=== PATIENT | female | born 1945 | race Caucasian/White ===

== ENCOUNTER 2020-01-09 15:08 | Outpatient (CLI) | payer MEDICARE, OTHER ==
[2020-01-09 15:30] LABS: BASOPHILS # (AUTO) 0.1 10^3/uL (0.0-0.1); BASOPHILS % (AUTO) 0.9 %; EOSINOPHILS # (AUTO) 0.5 10^3/uL (0.0-0.7); EOSINOPHILS % (AUTO) 6.2 %; HGB - HEMOGLOBIN 13.6 g/dL (12.0-16.0); LYMPHOCYTES # (AUTO) 2.8 10^3/uL (1.5-3.5); LYMPHOCYTES % (AUTO) 32.8 %; MEAN CORPUSCULAR HEMOGLOBIN 34.4 pg (27.0-31.0); MEAN CORPUSCULAR HGB CONC 33.8 g/dL (32.0-36.0); MEAN CORPUSCULAR VOLUME 101.8 fL (81.0-99.0); MEAN PLATELET VOLUME 10.8 fL (7.9-10.8); MONOCYTES # (AUTO) 0.7 10^3/uL (0.0-1.0); MONOCYTES % (AUTO) 8.6 %; NEUTROPHILS # (AUTO) 4.3 10^3/uL (1.5-6.6); NEUTROPHILS % (AUTO) 51.1 %; PLT - PLATELET COUNT 226 10^3/uL (130-450); RED BLOOD COUNT 3.95 10^6/uL (4.20-5.40); RED CELL DISTRIBUTION WIDTH 12.5 % (12.0-15.0); WHITE BLOOD COUNT 8.4 x10^3/uL (4.8-10.8)
[2020-01-09 15:45] LABS: ALBUMIN 3.8 g/dL (3.2-5.5); ALBUMIN/GLOBULIN RATIO 1.2 (1.0-2.2); BILIRUBIN,TOTAL 0.6 mg/dL (0.2-1.0); CREATININE 0.8 mg/dL (0.4-1.0); TOTAL PROTEIN 6.9 g/dL (6.7-8.2)
[2020-01-09 15:49] LABS: CHOL/HDL RATIO 2.5 (<4.4); CHOLESTEROL 225 mg/dL; HDL CHOLESTEROL 90 mg/dL; LDL CHOLESTEROL,CALCULATED 106 mg/dL; LDL/HDL RATIO 1.2 (<4.4); VLDL CHOLESTEROL 29 mg/dL
[2020-01-09 16:47] LABS: CREATININE,URINE 78.3 mg/dL; MICROALBUM/CREATININE RATIO,UR 1782.9 ug/mg (<30.0); MICROALBUMIN,URINE 139.6 mg/dL (0-300.0)
== END 2020-01-09 15:09 | disposition home or self-care (01) ==
LOC: LAB 15:08
PROVIDERS: ATTEND Internal Medicine Nephrology
DX: G43.909 Migraine, unspecified, not intractable, without status migrainosus (principal); I12.9 Hypertensive chronic kidney disease with stage 1 through stage 4 chronic kidney disease, or unspecified chronic kidney disease; N18.3 Chronic kidney disease, stage 3 (moderate); R80.1 Persistent proteinuria, unspecified; I70.1 Atherosclerosis of renal artery
CPT/HCPCS: 36415; 80053; 80061; 82043; 82570; 83721; 84443; 85025

== ENCOUNTER 2020-01-09 16:03 | Outpatient (CLI) | payer MEDICARE, OTHER ==
--- NOTE | 2020-01-10 11:01 | XRAY Report ---
Reason: BI LAT KNEE PAIN Procedure Date: 01/09/2020 Accession Number: [id number] / [id number] Procedure: XR - Knee 3 View BILAT CPT Code: Final Report FULL RESULT: EXAMS: 1. Right Knee Radiography 2. Left Knee Radiography EXAM DATE:01/09/2020 04:30 PM. CLINICAL HISTORY:Bilateral knee pain. COMPARISON: None. TECHNIQUE: 4 views each. FINDINGS: Right Knee: Bones: No fracture identified. Generalized bony demineralization. Varus angulation of the lower leg. Joints: Severe narrowing of the medial compartment of the knee, essentially [id number]. No chondrocalcinosis. No suprapatellar joint effusion. No subluxation. Soft Tissues: No subcutaneous radiopaque foreign bodies. Vascular calcifications noted. Left Knee: Bones: Moderate to severe narrowing of the medial compartment of the knee, without fracture. Mild osteophytic spurring of the medial tibial plateau. Joints: No chondrocalcinosis. Trace suprapatellar joint effusion. Soft Tissues: No subcutaneous radiopaque foreign bodies. IMPRESSION: Severe right and moderate to severe left sided degenerative changes at the knees. RADIA
--- NOTE | 2020-01-10 11:25 | XRAY Report ---
Reason: RIGHT HIP PX Procedure Date: 01/09/2020 Accession Number: [id number] / [id number] Procedure: XR - Hips 2V BILAT CPT Code: Final Report FULL RESULT: EXAM: BILATERAL HIP RADIOGRAPHY EXAM DATE: 01/09/2020 04:30 PM. CLINICAL HISTORY: Chronic right hip pain. COMPARISON: None. TECHNIQUE: 2 views each. FINDINGS: Bones: No acute fractures detected. Right Hip: Moderate narrowing at the right hip, with mild osteophytic spurring of the lateral femoral head and the lateral acetabular margin. 3 mm rounded soft tissue calcification versus loose body just lateral to the right femoral neck. Left Hip: Severe left hip joint space narrowing, with partial collapse of the femoral head and subchondral sclerotic changes of the acetabulum and femoral head. No dislocation detected. Other: Previous lower lumbar spinous fixation. The imaged portion sacroiliac joints appear intact. IMPRESSION: Moderate degenerative changes at the right hip, and severe degenerative changes at the left hip. RADIA
== END 2020-01-09 16:04 | disposition home or self-care (01) ==
LOC: DI 16:03
PROVIDERS: ATTEND Anesthesiology
DX: M17.0 Bilateral primary osteoarthritis of knee (principal); M16.0 Bilateral primary osteoarthritis of hip; G43.909 Migraine, unspecified, not intractable, without status migrainosus; I12.9 Hypertensive chronic kidney disease with stage 1 through stage 4 chronic kidney disease, or unspecified chronic kidney disease; N18.3 Chronic kidney disease, stage 3 (moderate); R80.1 Persistent proteinuria, unspecified; I70.1 Atherosclerosis of renal artery
CPT/HCPCS: 36415; 73521; 80053; 80061; 82043; 82570; 83721; 84443; 85025

== ENCOUNTER 2020-04-30 15:20 | Outpatient (CLI) | payer MEDICARE, OTHER ==
[2020-04-30 19:58] LABS: BASOPHILS # (AUTO) 0.1 10^3/uL (0.0-0.1); BASOPHILS % (AUTO) 1.2 %; EOSINOPHILS # (AUTO) 0.6 10^3/uL (0.0-0.7); HGB - HEMOGLOBIN 14.2 g/dL (12.0-16.0); LYMPHOCYTES # (AUTO) 2.6 10^3/uL (1.5-3.5); LYMPHOCYTES % (AUTO) 30.5 %; MEAN CORPUSCULAR HEMOGLOBIN 34.1 pg (27.0-31.0); MEAN CORPUSCULAR HGB CONC 33.1 g/dL (32.0-36.0); MEAN CORPUSCULAR VOLUME 102.9 fL (81.0-99.0); MEAN PLATELET VOLUME 12.3 fL (7.9-10.8); MONOCYTES # (AUTO) 0.8 10^3/uL (0.0-1.0); MONOCYTES % (AUTO) 9.2 %; NEUTROPHILS # (AUTO) 4.4 10^3/uL (1.5-6.6); NEUTROPHILS % (AUTO) 51.9 %; PLT - PLATELET COUNT 236 10^3/uL (130-450); RED BLOOD COUNT 4.17 10^6/uL (4.20-5.40); RED CELL DISTRIBUTION WIDTH 12.7 % (12.0-15.0); WHITE BLOOD COUNT 8.4 x10^3/uL (4.8-10.8)
[2020-04-30 20:00] LABS: CALCIUM 9.4 mg/dL (8.5-10.3); CREATININE 0.8 mg/dL (0.4-1.0)
[2020-04-30 20:05] LABS: CREATININE,URINE 15.3 mg/dL
== END 2020-04-30 15:21 | disposition home or self-care (01) ==
LOC: LAB.S 15:20
PROVIDERS: ATTEND Registered Nurse
DX: Z01.818 Encounter for other preprocedural examination (principal); N18.3 Chronic kidney disease, stage 3 (moderate)
CPT/HCPCS: 36415; 80048; 82043; 82570; 85025

== ENCOUNTER 2020-06-03 07:30 | Inpatient (IN) | payer MEDICARE, OTHER ==
[2020-06-17] MEDS ORDERED: CELECOXIB 100 MG CAPSULE PO ONE (06:48)
[2020-06-17] MEDS ORDERED: CEFAZOLIN SODIUM IN 0.9 % NACL 2 GM/100 ML BAG IV ONE (06:49)
[2020-06-17] MEDS ORDERED: ACETAMINOPHEN 1,000 MG/100 ML 100 ML IV ONE ×2 (06:49→08:40)
[2020-06-17] MEDS ORDERED: LACTATED RINGERS 1,000 ML IV ONE ×2 (07:41→12:13)
[2020-06-17] MEDS ORDERED: DEXAMETHASONE 4 MG/ML VIAL ONE (08:04)
--- NOTE | 2020-06-17 08:16 | ANESTHESIA ---
Pre-Anesthesia VS, & Labs - Diagnosis left hip osteoarthritis - Procedure Left Hip Total Arthroplasty Vital Signs: Temp Pulse Resp BP Pulse Ox 36.8 C 70 18 132/98 H 97 06/17/20 08:01 06/17/20 08:01 06/17/20 08:01 06/17/20 08:01 06/17/20 08:01 Height: 5 ft 1 in Weight (kg): 45.8 kg Body Mass Index: 19.1 BMI Classification: Healthy weight - NPO >8 hours - Is Patient ?: No - Lab Results Lab results reviewed: Yes Home Medications and Allergies Home Medications: Ambulatory Orders Aspirin [Aspirin EC] 81 mg PO DAILY 06/09/20 Butalbital/Acetaminophen [Acetaminophn-Butalbital 325-50] 1 each PO Q4HR PRN 06/09/20 Carbidopa/Levodopa [Carbidopa-Levo ER 25-100 Tab] 1 each PO ONCE PRN 06/09/20 Irbesartan 37.5 mg PO DAILY 06/09/20 Propranolol HCl 20 mg PO BID 06/09/20 Tramadol HCl 50 mg PO Q6HR PRN 06/09/20 Aspirin [Aspirin EC] 81 mg PO DAILY 06/09/20 Butalbital/Acetaminophen [Acetaminophn-Butalbital 325-50] 1 each PO Q4HR PRN 06/09/20 Carbidopa/Levodopa [Carbidopa-Levo ER 25-100 Tab] 1 each PO ONCE PRN 06/09/20 Irbesartan 37.5 mg PO DAILY 06/09/20 Propranolol HCl 20 mg PO BID 06/09/20 Tramadol HCl 50 mg PO Q6HR PRN 06/09/20 Allergies/Adverse Reactions: Allergies Allergy/AdvReac Type Severity Reaction Status Date / Time gabapentin Allergy Respiratory Verified 06/09/20 10:17 Anes History & Medical History - Anesthetic History Anesthesia Complications: reports: No previous complications Family history of Anesthesia Complications: Denies Family history of Malignant Hyperthermia: Denies - Medical History Cardiovascular: reports: Hypertension Pulmonary: reports: Pneumonia Gastrointestinal: reports: Colon polyps Urinary: reports: None Neuro: reports: Other (RLS) Musculoskeletal: reports: Osteoarthritis, Fibromyalgia, Chronic back pain (5 level spinal fusion), Other Endocrine/Autoimmune: reports: Systemic lupus erythematosus Skin: reports: None - Surgical History General: Appendectomy, Colonoscopy Eyes Ears Nose Throat (EENT): Tonsil/Adenoidectomy Urologic: Bladder surgery Gynecologic: Other Orthopedic: Spine surgery Exam General: Alert, Oriented x3, Cooperative, No acute distress Dental: Dentures full Upper Mouth Openin Fingerbreadth Neck Mobility: Normal Mallampati classification: II Respiratory: Lungs clear, Normal breath sounds, No respiratory distress, No accessory muscle use Cardiovascular: Regular rate, Normal S1, Normal S2, No murmurs Plan Anesthesia Type: Spinal, Fascia Iliaca Block Regional Block: Per Surgeon's request for Post Op pain control Consent for Procedure(s) Verified and Reviewed: Yes Code Status: Attempt Resuscitation ASA classification: 3-Severe systemic disease Is this case an emergency?: No
[2020-06-17] MEDS ORDERED: HYDROmorphone 0.5 MG/0.5 ML SYRINGE IVP PRN (08:37)
[2020-06-17] MEDS ORDERED: ePHEDrine 50 MG/ML VIAL IVP PRN (08:37)
[2020-06-17] MEDS ORDERED: NALOXONE 0.4 MG/ML VIAL IVP PRN (08:37)
[2020-06-17] MEDS ORDERED: MORPHINE 2 MG/ML CARPUJECT IVP PRN (08:37)
[2020-06-17] MEDS ORDERED: ONDANSETRON 4 MG/2 ML VIAL IVP PRN ×2 (08:37→12:18)
[2020-06-17] MEDS ORDERED: METOCLOPRAMIDE 10 MG/2 ML VIAL IVP PRN (08:37)
[2020-06-17] MEDS ORDERED: ATROPINE ABBOJECT 1 MG/10 ML SYRINGE IVP PRN (08:37)
[2020-06-17] MEDS ORDERED: fentaNYL 100 MCG/2 ML VIAL IVP PRN (08:37)
[2020-06-17] MEDS ORDERED: TRANEXAMIC ACID 1,000 MG/10 ML VIAL IV ONE (08:40)
[2020-06-17] MEDS ORDERED: PROPOFOL 200 MG/20 ML VIAL IVP ONE (08:40)
[2020-06-17] MEDS ORDERED: ePHEDrine 50 MG/ML VIAL IVP ONE (08:40)
[2020-06-17] MEDS ORDERED: PHENYLEPHRINE 10 MG/ML VIAL IV ONE (08:40)
[2020-06-17] MEDS ORDERED: MIDAZOLAM 2 MG/2 ML VIAL IVP ONE (08:40)
[2020-06-17] MEDS ORDERED: LACTATED RINGERS 1,000 ML IV SCH (09:00)
[2020-06-17] MEDS ORDERED: ASPIRIN EC 81 MG TABLET PO SCH (09:00)
--- NOTE | 2020-06-17 09:29 | CONSULTATION NOTE ---
Referring Provider Name of Referring Provider:: Dr Reyes Consult Date: 06/17/20 Chief Complaint - Chief Complaint Chief Complaint: back pain and hip pain History of Present Illness - Admitted From Admitted From:: in the medical floor - History Obtained From Records Reviewed: [facility] History obtained from: pt Exam Limitations: no - History of Present Illness HPI Comment/Other: This is a 75 years old female with past medical history significant only for s ystolic lupus erythematosus, HTN, fibromyalgia, chronic back pain, Osteoarthritis, Clinical vision loss, who was admitted by Orthopedic surgeon for left total hip arthroplasty. Patient already left medical floor for surgery when I got a message for consult. After the patient had surgery and came to the medical floor, I went to assess patient. pt report she had severe, chronically progressive pain to the left hip. Patient reported she had history of lupus, and her lupus is in remission, she cannot tolerate any medication for her lupus treatment. She has no medication for her lupus now. Patient reported she feel good after surgery, she has no complaints now. 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 HEENT: reports: Tonsil/Adenoidectomy Meds/Allgy - Home Medications Home Medications: Ambulatory Orders Medication Instructions Recorded Confirmed Butalbital/Acetaminophen 1 each PO Q4HR PRN 06/09/20 06/09/20 [Acetaminophn-Butalbital 325-50] Irbesartan 37.5 mg PO DAILY 06/09/20 06/09/20 Propranolol HCl 20 mg PO BID 06/09/20 06/09/20 Carbidopa/Levodopa 2 tab PO BID PRN 06/17/20 06/17/20 [Carbidopa-Levodopa 25-100 Tab] - Allergies Allergies/Adverse Reactions: Allergies Allergy/AdvReac Type Severity Reaction Status Date / Time gabapentin Allergy Respiratory Verified 06/09/20 10:17 Review of Systems - Constitutional Constitutional: denies: Fatigue, Fever, Chills, Weakness - Eyes Eyes: denies: Pain, Dipolpia - Ears, Nose & Throat Ears, Nose & Throat: denies: Ear pain, Hearing aids, Vertigo, Nosebleeds, Nasal congestion, Bleeding gums - Cardiovascular Cariovascular: denies: Irregular heart rate, Palpitations, Chest pain, Edema, Lightheadedness, Syncope, Exertional dyspnea - Respiratory Respiratory: denies: Cough, Sputum production, Wheezing, Hemoptysis, SOB at rest - Gastrointestinal Gastrointestinal: denies: Abdominal pain, Constipation, Diarrhea, Rectal bleeding, Black stools, Bloody stools, Nausea, Vomiting - Genitourinary Genitourinary: denies: Dysuria, Frequency - Musculoskeletal Musculoskeletal: reports: Back pain. denies: Muscle pain, Muscle aches, Limited range of motion, Muscle weakness - Integumentary Integumentary: denies: Rash, Lesions, Dryness, Lumps - Neurological Neurological: denies: General weakness, Focal weakness, Headache, Dizziness, Numbness, Pre-existing deficit, Abnormal gait, Seizures, Incoordination, Slurred speech - Psychiatric Psychiatric: denies: Depression, Suicidal, Delusions, Hallucinations - Endocrine Endocrine: denies: Polyuria - Hematologic/Lymphatic Hematologic/Lymphatic: denies: Anemia, Blood clots Exam - Vital Signs Vital Signs: Vital Signs x48h Temp Pulse Resp BP Pulse Ox 06/17/20 08:01 36.8 C 70 18 132/98 H 97 - Physical Exam General Appearance: positive: No acute distress, Alert. negative: Lethargic Eyes Bilateral: positive: Normal inspection, PERRL, No lid inflammation ENT: positive: ENT inspection nml, No signs of dehydration. negative: Purulent nasal drainage Neck: positive: Nml inspection, Thyroid nml, Trachea midline. negative: Thyromegaly, Tracheal deviation Respiratory: positive: Chest non-tender, No respiratory distress, Breath sounds nml. negative: Wheezes, Rales, Rhonchi Cardiovascular: positive: Regular rate & rhythm, No murmur. negative: Tachycardia, Bradycardia, Systolic murmur, Diastolic murmur Peripheral Pulses: positive: 2+ Abdomen: positive: Non-tender, Nml bowel sounds, No distention. negative: Tenderness, Guarding, Rebound Back: positive: Nml inspection Skin: positive: Color nml, No rash, Warm, Dry. negative: Cyanosis, Diaphoresis, Pallor Extremities: positive: Nml appearance. negative: Calf tenderness Neurologic/Psychiatric: positive: Oriented x3, Sensation nml, Mood/affect nml. negative: Weakness, Sensory loss, Facial droop, Slurred/abnml speech, Depressed mood/affect Conclusion/Plan - Plan Plan: 1, Status post of left total hip arthroplasty, Follow-up with orthopedics surgeon, Aspirin twice daily for DVT prophylaxis per surgeon, PT and OT evaluation and treatment, Pain control. 2, Hypertension, Blood pressure is a stable now, will resume patient home blood pressure medicine after confirmed. 3, Lupus,Stable, it is in the remission now. 4, Osteoarthritis, Patient had a surgery today. We will continue pain control, Continue physical therapy and Occupational Therapy. - Lab Results Lab results reviewed: Yes
--- NOTE | 2020-06-17 12:06 | PHARMACY PROGRESS NOTE ---
- Best Possible Medication History Admit Date and Time: 06/17/20 0733 Processed by: Nursing As the person ultimately responsible for medication therapy, providers are able to order a medication from an existing home medication list in [facility] via the "Reconcile Routine" prior to Confirmation of that medication by technical support coordinator. Such practice is discouraged except when the physician, in their clinical judgment, deems that a medical need exists for a medication without regard to previous use.
[2020-06-17] MEDS ORDERED: SODIUM CHLORIDE FLUSH 0.9% 10 ML SYRINGE IVP PRN (12:18)
--- NOTE | 2020-06-17 12:24 | ANESTHESIA POST OP EVALUATION ---
Anesthesia Post Eval - Post Anesthesia Eval Vitals: Last Vital Signs Temp 36.8 C 06/17/20 08:01 Pulse 70 06/17/20 08:01 Resp 18 06/17/20 08:01 BP 132/98 H 06/17/20 08:01 Pulse Ox 97 06/17/20 08:01 CV Function Including HR & BP: positive: Stable Pain Control: positive: Satisfactory Nausea & Vomiting: positive: Negative Mental Status: positive: Baseline Respiratory Status: Airway Patent Hydration Status: Satisfactory (awaiting urine output, donnelly vs. no donnelly)
[2020-06-17] MEDS ORDERED: BUTALB/ACETAM/CAFF 50/325/40MG TABLET PO PRN (12:26)
--- NOTE | 2020-06-17 12:42 | OPERATIVE REPORT ---
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 Almost every step is now very painful with the pain being in the groin and upper thigh of left hip. She had marked restriction of motion to the left hip and severe degenerative changes to the left hip joint on x-ray with [id number] and large cyst. She had preoperative medical evaluation and joint camp. Findings: There was a deformed femoral head, eburnated bone surface to the femoral head, shallow acetabulum with loss of bone to superior acetabulum. She also had shortness of the left leg preop. Complications: none noted - Other Other Information/Narrative: The patient was brought to the operating room and administered a lumbar spinal anesthetic. She was positioned in a lateral decubitus position with the left hip facing superiorly and was secured in the lateral decubitus position using a pegboard with 3 pegs. The groin and operative field were excluded with a U drape's above and below the hip. The left lower extremity was prepped and dr aped in a sterile manner in the usual fashion. Ioban adhesive drapes were applied. A timeout procedure was performed by the entire operating room team and all were in agreement. A lateral incision was made over the left hip beginning just below the vastus lateralis tubercle and extending it proximally approximately 3 fingerbreadths above the greater trochanter. The fascia kala was split in line with the incision. An initial self-retaining retractor was inserted. The anterior one third of the gluteus medius myotendinous junction was released with electrocautery. The gluteus minimus and capsule were elevated from the neck. The capsule was split in a T-shaped fashion. The leg was adducted and externally rotated to help expose the anterior capsule which was partially excised. The femoral head was dislocated with a bone hook as well as manipulation. Once the head had been dislocated, retractors were placed around the neck. A femoral neck cutting guide was applied and a oscillating saw was used to divide the neck. The femoral head was saved for bone graft; a reamer was used to remove cancellous bone. The acetabulum was exposed with anterior And posterior acetabular retrac. These retractors were inserted directly against bone to prevent any soft tissue impingement. The acetabulum was cleared of soft tissue to carefully expose the rim. A curette was used to remove any soft tissue and to expose the inner table at the fovea. The acetabular cyst was encountered superiorly and slightly anteriorly. This acetabular cyst measured approximately 2 cm x 1 cm. Acetabular reaming was then performed. Initially the acetabulum was medialized with a 46 mm reamer. Additional reaming was then performed with the reamer in the desired degree of abduction and anteversion. Acetabular reaming was carried out to 55 mm in approximately 1 mm increments. A trial reduction was performed but a tight fit could not be achieved. Therefore 3 cancellous screws were placed through the cup to achieve excellent stability with the cup placed in 40 degrees of abduction and 20 degrees of anteversion. The 56 mm R3 A trial acetabular insert was inserted.The left leg was then placed in the anterior hip pocket and a femoral elevator was used to lift the femur. The femoral canal was opened with a box osteotome. A paper cup handle machine operator was used to establish the femoral canal. Broaching was carried out in 1 mm increments to a #7 which was slightly countersunk and calcar reamed. A trial reduction was performed with a neutral acetabular liner and a high offset neck. There is too much leg length tension and for this reason a normal offset was utilized and a - 3 femoral neck length; this seemed to fit well with excellent stability and leg length tension. The permanent components were then inserted. The permanent femoral component was a #7 and was stable to push pull and torsion. The permanent acetabular liner had also been inserted and impacted. The 36 mm, -3 zirconium femoral head was impacted. The hip was reduced and was stable to motion. The wound was soaked in Betadine, dilute, for 3 minutes. The hip abductors were repaired with #1 Vicryl suture. The fascia kaal was closed with #1 Vicryl. The subcutaneous tissue was closed with 2-0 Vicryl. The skin was closed with a 3-0 Monocryl subcuticular suture with Dermabond. Once the Dermabond had dried, a silver impregnated dressing was applied. She did receive 2 g of Ancef intravenously and tolerated procedure wellA physician assistant unit forester was utilized and was medically necessary in positioning, exposure and protection of vital structures, as well as closure of the wound. The total hip system utilized was the [employer]: All noncemented, R 3 acetabulum with 3 screws was inserted with 3 holes. The #7 anthology femoral component was used. 36 mm, -3 femoral head.
[2020-06-17] MEDS: KETOROLAC 15 MG/ML VIAL IVP PRN ×2 (14:00→20:10)
[2020-06-17] MEDS: traMADol 50 MG TABLET PO PRN ×2 (14:01→21:53)
[2020-06-17] MEDS: NS W/20 MEQ KCL 1,000 ML IV SCH ×2 (14:03→23:56)
[2020-06-17] MEDS ORDERED: CARBIDOPA/LEVODOPA 25 MG/100 MG TABLET PO PRN (15:39)
[2020-06-17] MEDS: ACETAMINOPHEN 1,000 MG/100 ML 100 ML IV PRN ×2 (15:47→23:56)
--- NOTE | 2020-06-17 16:17 | ANESTHESIA POST OP EVALUATION ---
Anesthesia Post Eval - Post Anesthesia Eval Vitals: Last Vital Signs Temp 36.7 C 06/17/20 16:03 Pulse 76 06/17/20 16:03 Resp 16 06/17/20 16:03 BP 130/79 06/17/20 16:03 Pulse Ox 96 06/17/20 16:03 CV Function Including HR & BP: positive: Stable Pain Control: positive: Satisfactory Nausea & Vomiting: positive: Negative Mental Status: positive: Baseline Respiratory Status: Airway Patent Hydration Status: Satisfactory Anesthesia Complications: positive: None
[2020-06-17] MEDS: ceFAZolin 2 GM in SODIUM CHLORIDE 0.9% 100ML 100 ML IV SCH ×2 (16:47→23:48)
[2020-06-17] MEDS: SODIUM CHLORIDE FLUSH 0.9% 10 ML SYRINGE IVP SCH (16:52)
[2020-06-17 17:29] LABS: BASOPHILS % (AUTO) 0.3 %; EOSINOPHILS % (AUTO) 0.2 %; HGB - HEMOGLOBIN 12.5 g/dL (12.0-16.0); LYMPHOCYTES # (AUTO) 1.2 10^3/uL (1.5-3.5); LYMPHOCYTES % (AUTO) 12.1 %; MEAN CORPUSCULAR HEMOGLOBIN 34.7 pg (27.0-31.0); MEAN CORPUSCULAR HGB CONC 34.6 g/dL (32.0-36.0); MEAN CORPUSCULAR VOLUME 100.3 fL (81.0-99.0); MEAN PLATELET VOLUME 11.2 fL (7.9-10.8); MONOCYTES # (AUTO) 0.9 10^3/uL (0.0-1.0); MONOCYTES % (AUTO) 9.4 %; NEUTROPHILS # (AUTO) 7.5 10^3/uL (1.5-6.6); NEUTROPHILS % (AUTO) 77.6 %; PLT - PLATELET COUNT 200 10^3/uL (130-450); RED CELL DISTRIBUTION WIDTH 12.7 % (12.0-15.0); WHITE BLOOD COUNT 9.6 x10^3/uL (4.8-10.8)
[2020-06-17 17:38] LABS: ALBUMIN/GLOBULIN RATIO 1.2 (1.0-2.2); ALKALINE PHOSPHATASE 91 IU/L (42-121); ALT ALANINE AMINOTRANSFERASE < 10 IU/L (10-60); AST ASPARTATE AMINOTRANSFERASE 50 IU/L (10-42); BILIRUBIN,TOTAL 0.7 mg/dL (0.2-1.0); BUN - BLOOD UREA NITROGEN 10 mg/dL (6-20); CALCIUM 8.2 mg/dL (8.5-10.3); CARBON DIOXIDE - CO2 24 mmol/L (21-32); CHLORIDE 101 mmol/L (101-111); CREATININE 0.7 mg/dL (0.4-1.0); GLUCOSE 147 mg/dL (70-100); MAGNESIUM 1.8 mg/dL (1.7-2.8); PHOSPHORUS 3.7 mg/dL (2.5-4.6); SODIUM 136 mmol/L (135-145); TOTAL PROTEIN 5.5 g/dL (6.7-8.2)
[2020-06-17] MEDS: CELECOXIB 100 MG CAPSULE PO SCH (21:52)
[2020-06-17] MEDS: ASPIRIN EC 81 MG TABLET PO SCH (21:52)
[2020-06-17] MEDS: PROPRANOLOL 10 MG TABLET PO SCH (21:52)
[2020-06-17] MEDS: ethyl alcohoL 62% SWAB AMPULE NAS SCH (22:54)
[2020-06-17] MEDS: oxyCODONE 5 MG TABLET PO PRN (23:03)
[2020-06-17] MEDS ORDERED: ceFAZolin 1 GM VIAL ONE (23:35)
[2020-06-18] MEDS: SODIUM CHLORIDE FLUSH 0.9% 10 ML SYRINGE IVP SCH ×2 (00:33→08:26)
[2020-06-18] MEDS: KETOROLAC 15 MG/ML VIAL IVP PRN ×2 (01:34→08:25)
[2020-06-18] MEDS: traMADol 50 MG TABLET PO PRN ×3 (03:36→16:00)
[2020-06-18 05:23] LABS: BASOPHILS % (AUTO) 0.4 %; EOSINOPHILS # (AUTO) 0.4 10^3/uL (0.0-0.7); EOSINOPHILS % (AUTO) 5.2 %; HGB - HEMOGLOBIN 11.1 g/dL (12.0-16.0); LYMPHOCYTES # (AUTO) 2.5 10^3/uL (1.5-3.5); LYMPHOCYTES % (AUTO) 30.9 %; MEAN CORPUSCULAR HEMOGLOBIN 34.6 pg (27.0-31.0); MEAN CORPUSCULAR VOLUME 101.6 fL (81.0-99.0); MEAN PLATELET VOLUME 11.7 fL (7.9-10.8); MONOCYTES % (AUTO) 12.1 %; NEUTROPHILS # (AUTO) 4.1 10^3/uL (1.5-6.6); NEUTROPHILS % (AUTO) 51.1 %; PLT - PLATELET COUNT 180 10^3/uL (130-450); RED BLOOD COUNT 3.21 10^6/uL (4.20-5.40); RED CELL DISTRIBUTION WIDTH 12.5 % (12.0-15.0); WHITE BLOOD COUNT 7.9 x10^3/uL (4.8-10.8)
[2020-06-18 05:30] LABS: CALCIUM 8.2 mg/dL (8.5-10.3); CREATININE 0.7 mg/dL (0.4-1.0)
[2020-06-18] MEDS: oxyCODONE 5 MG TABLET PO PRN ×2 (05:46→12:36)
[2020-06-18] MEDS: ACETAMINOPHEN 1,000 MG/100 ML 100 ML IV PRN (06:19)
--- NOTE | 2020-06-18 07:33 | Discharge Plan ---
Discharge Plan Problem Reviewed?: Yes Disposition: Home, Self Care Diet: Regular Activity Restrictions: Wt Bearing as Tolerated Shower Restrictions: No Driving Restrictions: Yes Assistance Devices: Walker, Crutches Weight Bearing: As Tolerated Plan of Treatment: Patient is She also is to weight-bear as tolerated. Patient is to continue home exercise program to include as much walking as tolerated.Patient is to take meds as prescribed: Tramadol 50 mg every 6 hours, Celebrex 100 mg twice a day aspirin 81 mg twice a day and oxycodone 5 mg as needed for breakthrough pain and to follow-up in clinic this Monday No Smoking: If you smoke, Please STOP! Call for help. Follow-up with: Obdulia Laureano ARNP [Primary Care Provider] -
--- NOTE | 2020-06-18 07:33 | PROVIDER PROGRESS NOTE ---
Subjective - General Admit Date: 06/17/20 Procedure Date: 06/17/20 Post Op Days: 1 Procedure Performed: left total hip arthroplasty - Review of Systems Wound/Incisions: positive: Dressing dry and intact General: positive: No symptoms Psychiatric: positive: No symptoms - Other Other Information/Narrative: Pain is under good control. She is alert and cheerful. Denies chest pain, shortness of breath, nausea or vomiting. Objective - Patient Data Vital Signs: Vital Signs x48h Temp Pulse Resp BP Pulse Ox 06/18/20 03:38 36.6 C 69 16 146/66 H 97 06/17/20 23:49 37.2 C 65 16 106/61 97 Weight: Weight 06/16/20 06/17/20 06/18/20 23:59 23:59 23:59 Weight (kg) 45.8 kg Intake & Output: Intake and Output Totals x24h 06/16/20 06/17/20 06/18/20 23:59 23:59 23:59 Intake Total 1538.333 300 Output Total 1150 525 Balance 388.333 -225 - Lab Results Lab Results: 06/18/20 04:55 06/18/20 04:55 Other Lab Results: Lab Results x24hrs 06/18/20 06/18/20 06/17/20 Range/Units 04:55 04:55 17:18 WBC 7.9 (4.8-10.8) x10^3/uL RBC 3.21 L (4.20-5.40) 10^6/uL Hgb 11.1 L (12.0-16.0) g/dL Hct 32.6 L (37.0-47.0) % MCV 101.6 H (81.0-99.0) fL MCH 34.6 H (27.0-31.0) pg MCHC 34.0 (32.0-36.0) g/dL RDW 12.5 (12.0-15.0) % Plt Count 180 (130-450) 10^3/uL MPV 11.7 H (7.9-10.8) fL Neut # (Auto) 4.1 (1.5-6.6) 10^3/uL Lymph # (Auto) 2.5 (1.5-3.5) 10^3/uL Payette # (Auto) 1.0 (0.0-1.0) 10^3/uL Eos # (Auto) 0.4 (0.0-0.7) 10^3/uL Baso # (Auto) 0.0 (0.0-0.1) 10^3/uL Absolute Nucleated RBC 0.00 x10^3/uL Nucleated RBC % 0.0 /100WBC Sodium 139 136 (135-145) mmol/L Potassium 3.9 3.6 (3.5-5.0) mmol/L Chloride 108 101 (101-111) mmol/L Carbon Dioxide 23 24 (21-32) mmol/L Anion Gap 8.0 11.0 (6-13) BUN 11 10 (6-20) mg/dL Creatinine 0.7 0.7 (0.4-1.0) mg/dL Estimated GFR (MDRD) 81 L 81 L (>89) Glucose 113 H 147 H (70-100) mg/dL POC Whole Bld Glucose (70 - 100) mg/dL Calcium 8.2 L 8.2 L (8.5-10.3) mg/dL Phosphorus 3.7 (2.5-4.6) mg/dL Magnesium 1.8 (1.7-2.8) mg/dL Total Bilirubin 0.7 (0.2-1.0) mg/dL AST 50 H (10-42) IU/L ALT < 10 L (10-60) IU/L Alkaline Phosphatase 91 (42-121) IU/L Total Protein 5.5 L (6.7-8.2) g/dL Albumin 3.0 L (3.2-5.5) g/dL Globulin 2.5 (2.1-4.2) g/dL Albumin/Globulin Ratio 1.2 (1.0-2.2) 06/17/20 06/17/20 Range/Units 17:18 08:23 WBC 9.6 (4.8-10.8) x10^3/uL RBC 3.60 L (4.20-5.40) 10^6/uL Hgb 12.5 (12.0-16.0) g/dL Hct 36.1 L (37.0-47.0) % MCV 100.3 H (81.0-99.0) fL MCH 34.7 H (27.0-31.0) pg MCHC 34.6 (32.0-36.0) g/dL RDW 12.7 (12.0-15.0) % Plt Count 200 (130-450) 10^3/uL MPV 11.2 H (7.9-10.8) fL Neut # (Auto) 7.5 H (1.5-6.6) 10^3/uL Lymph # (Auto) 1.2 L (1.5-3.5) 10^3/uL Payette # (Auto) 0.9 (0.0-1.0) 10^3/uL Eos # (Auto) 0.0 (0.0-0.7) 10^3/uL Baso # (Auto) 0.0 (0.0-0.1) 10^3/uL Absolute Nucleated RBC 0.00 x10^3/uL Nucleated RBC % 0.0 /100WBC Sodium (135-145) mmol/L Potassium (3.5-5.0) mmol/L Chloride (101-111) mmol/L Carbon Dioxide (21-32) mmol/L Anion Gap (6-13) BUN (6-20) mg/dL Creatinine (0.4-1.0) mg/dL Estimated GFR (MDRD) (>89) Glucose (70-100) mg/dL POC Whole Bld Glucose 194 H (70 - 100) mg/dL Calcium (8.5-10.3) mg/dL Phosphorus (2.5-4.6) mg/dL Magnesium (1.7-2.8) mg/dL Total Bilirubin (0.2-1.0) mg/dL AST (10-42) IU/L ALT (10-60) IU/L Alkaline Phosphatase (42-121) IU/L Total Protein (6.7-8.2) g/dL Albumin (3.2-5.5) g/dL Globulin (2.1-4.2) g/dL Albumin/Globulin Ratio (1.0-2.2) - Current Medications Current Medications: Current Medications Generic Name Dose Route Start Last Admin Trade Name Freq PRN Reason Stop Dose Admin Alcohol 1 amp 06/17/20 21:00 06/17/20 22:54 Nozin SWETA 1 amp BID MATTHEW Administration Aspirin 81 mg 06/17/20 21:00 06/17/20 21:52 Ecotrin PO 81 mg BID MATTHEW Administration Celecoxib 200 mg 06/17/20 21:00 06/17/20 21:52 Celebrex PO 200 mg BID MATTHEW Administration Acetaminophen 100 mls @ 400 mls/hr 06/17/20 12:18 06/18/20 06:44 Ofirmev IV 06/18/20 12:17 Infused Q6HR PRN Infusion PAIN Potassium Chloride/Sodium Chloride 1,000 mls @ 100 mls/hr 06/17/20 13:00 06/17/20 23:56 Normal Saline 0.9% W/20 Meq Kcl IV 100 mls/hr .Q10H MATTHEW Administration Ketorolac Tromethamine 15 mg 06/17/20 12:29 06/18/20 01:34 Toradol Inj (15mg) IVP 06/22/20 12:28 15 mg Q6HR PRN Administration PAIN Oxycodone HCl 5 mg 06/17/20 12:23 06/18/20 05:46 Roxicodone PO 5 mg Q6H PRN Administration PAIN Propranolol HCl 20 mg 06/17/20 21:00 06/17/20 21:52 Inderal PO 20 mg BID MATTHEW Administration Sodium Chloride 10 ml 06/17/20 17:00 06/18/20 00:33 Normal Saline Flush 0.9% IVP Not Given 0100,0900,1700 [facility] Tramadol HCl 50 mg 06/17/20 12:21 06/18/20 03:36 Ultram PO 50 mg Q6H PRN Administration PAIN - Physical Exam Wound/Incisions: positive: Dressing dry and intact Neurologic/Psychiatric: positive: Oriented x3, Motor nml, Sensation nml Comments/Other: neurovascular intact left leg Impression/Plan - Problem List Problem List: she is doing well following left ISABELLE She can be discharged to home today Discharge plan completed with prescribed pain medications: tylenol, celebrex, tramadol, and oxycodone Use walker, weight bearing as tolerated ASA 81 mg po bid for DVT prophlaxis for 6 weeks Recheck in clinic next Monday
[2020-06-18] MEDS: CELECOXIB 100 MG CAPSULE PO SCH (08:25)
[2020-06-18] MEDS: ASPIRIN EC 81 MG TABLET PO SCH (08:25)
[2020-06-18] MEDS: ethyl alcohoL 62% SWAB AMPULE NAS SCH (08:26)
[2020-06-18] MEDS: PROPRANOLOL 10 MG TABLET PO SCH (08:35)
[2020-06-18] MEDS: NS W/20 MEQ KCL 1,000 ML IV SCH (14:58)
[2020-06-18 16:39] VITALS: BP 144/84
== END 2020-06-18 16:42 | disposition home or self-care (01) | DRG 470 ==
LOC: MS3 06-17 07:33 → MS2 06-17 11:41 → MS3 06-17 12:02
PROVIDERS: ADMIT Orthopaedic Surgery; ATTEND Orthopaedic Surgery
PROC: 0SRB01A Replacement of Left Hip Joint with Metal Synthetic Substitute, Uncemented, Open Approach (ICD-10-PCS; principal; 2020-06-17 08:30)
DX: M16.12 Unilateral primary osteoarthritis, left hip (principal); I12.9 Hypertensive chronic kidney disease with stage 1 through stage 4 chronic kidney disease, or unspecified chronic kidney disease; N18.9 Chronic kidney disease, unspecified; L93.0 Discoid lupus erythematosus; M79.7 Fibromyalgia; G89.29 Other chronic pain; M54.9 Dorsalgia, unspecified; Z98.1 Arthrodesis status; H54.7 Unspecified visual loss; Z79.82 Long term (current) use of aspirin; Z87.01 Personal history of pneumonia (recurrent)
CPT/HCPCS: 36415; 80048; 80053; 83735; 84100; 85025; 97161; 97165; 97530; 97535; A9270; J0131; J0690; J7120

== ENCOUNTER 2020-06-12 14:27 | Outpatient (CLI) | payer MEDICARE, OTHER | END 2020-06-12 14:28 | disposition home or self-care (01) | LOC: LAB 14:27 | PROVIDERS: ATTEND Orthopaedic Surgery | DX: Z01.812 Encounter for preprocedural laboratory examination (principal); Z20.828 Contact with and (suspected) exposure to other viral communicable diseases; M16.12 Unilateral primary osteoarthritis, left hip ==

== ENCOUNTER 2020-07-27 16:07 | Outpatient (CLI) | payer MEDICARE, OTHER ==
--- NOTE | 2020-07-27 16:09 | XRAY Report ---
PROCEDURE: Femur 2V LT INDICATIONS: POST-OP CARE TECHNIQUE: 5 views of the femur were acquired. COMPARISON: None. FINDINGS: Bones: No fractures or dislocations. No suspicious bony lesions. Prior left total hip arthroplasty . No evidence of device loosening or disruption. Soft tissues: No suspicious soft tissue calcifications or masses. IMPRESSION: Left total hip arthroplasty alignment appears normal. Note is made of a moderately severe degree of d egenerative knee joint osteoarthritis at the medial fragment. Reviewed by: Edison Fuchs MD on 07/27/2020 4:08 PM PST Approved by: Edison Fuchs MD on 07/27/2020 4:08 PM PST Station ID: [id number]
--- NOTE | 2020-07-27 16:13 | XRAY Report ---
PROCEDURE: Hip w/Pelvis 1V LT INDICATIONS: POST-OP CARE TECHNIQUE: AP pelvis with lateral view(s) of the left hip. COMPARISON: Pelvis with left hip 01/09/2020. FINDINGS: Bones: No fractures or dislocations. A left total hip arthroplasty is normally aligned. This replace s severe arthritic change at the [place] left hip noted in December of this year. Prior back surgery with f usion crossing the lumbosacral junction remains stable over time. 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 Pelvic ring appears intact. No fadi picious bony lesions. Soft tissues: The visualized bowel gas pattern is normal. No suspicious soft tissue calcifications. IMPRESSION: Normal arthroplasty alignment left hip, mild to moderate right hip joint osteoarthritis, stable postsurgical changes at the lumbosacral spine with reference to preoperative pelvis plain min m imaging. Reviewed by: Edison Fuchs MD on 07/27/2020 4:12 PM PST Approved by: Edison Fuchs MD on 07/27/2020 4:12 PM PST Station ID: [id number]
== END 2020-07-27 23:59 | disposition home or self-care (01) ==
LOC: DI.N 16:07
PROVIDERS: ATTEND Orthopaedic Surgery
DX: Z48.89 Encounter for other specified surgical aftercare (principal); Z96.642 Presence of left artificial hip joint; M16.11 Unilateral primary osteoarthritis, right hip; M17.12 Unilateral primary osteoarthritis, left knee

== ENCOUNTER 2020-08-26 | Outpatient (CLI) | payer MEDICARE, OTHER | END 2020-08-26 15:56 | disposition critical access hospital (66) | CPT/HCPCS: A0425; A0427 ==

== ENCOUNTER 2020-08-26 16:19 | Emergency (ER) | payer MEDICARE, OTHER ==
[2020-08-26] MEDS ORDERED: SODIUM CHLORIDE 0.9% 1,000 ML IV STA (16:26)
--- NOTE | 2020-08-26 16:49 | ED Physician Documentation ---
PD HPI LOWER EXT INJURY - Stated complaint Stated Complaint: L HIP PX - Chief complaint Chief Complaint: Trauma Ext - History obtained from History obtained from: Patient - History of Present Illness PD HPI LOW EXT INJURY LOCATION: Left, Hip Pain level max: 9 Pain level now: 8 Improved by: Rest Worsened by: Moving, Palpating Associated symptoms: No: Weakness, Numbness, Tingling Recently seen: Not recently seen - Additional information Additional information: Patient is a 75-year-old female who states that she had a hip replacement at the end of May. Today she was bending over and felt a pop in her hip. She felt like she could not stand back up on the leg. Called 911 and brought in by ambulance. Worse with movement, better with rest. No fall or trauma Review of Systems Constitutional: denies: Fever, Chills GI: denies: Vomiting, Diarrhea Skin: denies: Rash Musculoskeletal: denies: Neck pain Neurologic: denies: Headache PD PAST MEDICAL HISTORY - Past Medical History Cardiovascular: Hypertension Respiratory: Pneumonia Neuro: Other Endocrine/Autoimmune: Systemic lupus erythematosus GI: Colon polyps : None HEENT: Chronic vision loss Psych: Claustrophobia Musculoskeletal: Osteoarthritis, Fibromyalgia, Chronic back pain, Other Derm: None - Past Surgical History Past Surgical History: Yes General: Appendectomy, Colonoscopy Ortho: Hip replacement, 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 HEENT: Tonsil/Adenoidectomy - Present Medications Home Medications: Ambulatory Orders Medication Instructions Recorded Confirmed Propranolol HCl 0 mg PO BID 06/09/20 06/09/20 Carbidopa/Levodopa 2 tab PO BID PRN 06/17/20 06/17/20 [Carbidopa-Levodopa 25-100 Tab] Celecoxib [CeleBREX] 100 mg PO BID 30 Days #60 capsule 06/18/20 - Allergies Allergies/Adverse Reactions: Allergies Allergy/AdvReac Type Severity Reaction Status Date / Time gabapentin Allergy Respiratory Verified 08/26/20 16:24 - Social History Does the pt smoke?: No Smoking Status: Never smoker Does the pt have substance abuse?: No PD ED PE NORMAL - Vitals Vital signs reviewed: Yes - General General: Alert and oriented X 3, No acute distress - HEENT HEENT: Moist mucous membranes - Neck Neck: Supple, no meningeal sign - Cardiac Cardiac: RRR - Respiratory Respiratory: No respiratory distress, Clear bilaterally - Derm Derm: Warm and dry - Neuro Neuro: Alert and oriented X 3 Results - Vitals Vitals: Vital Signs - 24 hr 08/26/20 08/26/20 16:24 17:00 Temperature 37.1 C Heart Rate 75 58 L Respiratory 18 16 Rate Blood Pressure 195/101 H 170/90 H O2 Saturation 100 100 Oxygen O2 Source Room air - Rads (name of study) L hip Ct Radiology: Prelim report reviewed, EMP read contemporaneously, See rad report L hip xray Radiology: Prelim report reviewed, EMP read contemporaneously, See rad report (Stable postarthroplasty changes in left hip with anatomic left hip alignment. No gross hardware complication. No acute fracture or dislocation. ) PD MEDICAL DECISION MAKING - ED course Complexity details: reviewed results, re-evaluated patient, considered differential, d/w patient ED course: 75-year-old female with left hip pain after a total hip arthroplasty about 2 months ago. Initial concern for dislocation, however the hardware is well aligned. The patient states that she has actually been having pain since the surgery and feels most of the pain in her hip flexor area. She states it is worse with movement and better with rest. Discussed the case with Dr. Reyes, CT scan was ordered. This does show mild lucency around the anterior most acetabular screw. The tip of the superior portion is located within the iliac is muscle. This may be causing her pain in her leg. Dr. Reyes would like to follow her up in clinic and plan for likely revision. Patient does not want a nursing facility or rehab. She would like to go home. The iliac is muscles consistent with her pain. Patient is ambulating well with a walker in the emergency department. Patient counseled regarding signs and symptoms for which I believe and urgent re-evaluation would be necessary. Patient with good understanding of and agreement to plan and is comfortable going home at this time This document was made in part using voice recognition software. While efforts are made to proofread this document, sound alike and grammatical errors may occur. Bones: Post surgical changes are seen from left total hip arthroplasty with associated metallic streak artifact that mildly compromises evaluation of surrounding structures. Mild lucency is seen surrounding the anterior most acetabular screw that may be related to osteoarthrosis. The tip of the superior is located within the iliacus muscle. The posterosuperior is down positioning without signs of loosening. The lateral most screw is located just lateral to the iliac bone. The femoral and acetabular components are normally aligned without signs of hardware or dislocation of the radiolucent portion. No perihardware fracture is identified. There is no signs of loosening of the femoral stem. The pubic bones are intact. The right proximal femur is intact. Postsurgical changes are seen from posterior fusion at the lumbosacral junction extending from L4 through S1. Soft tissues: No large joint effusion or periarticular masses identified. Moderate to severe atherosclerotic calcifications are seen in the aorta and iliac arteries. The included soft tissues of the pelvis demonstrate no acute abnormality. The ligaments and tendons are not well evaluated with CT. There is mild fatty infiltration of the musculature surrounding the hips. IMPRESSION: Left total hip arthroplasty is seen with intact metallic components as described above. There is mild lucency surrounding the anteriormost acetabular screw that may indicate mild osteolysis. However, no additional signs of significant loosening are identified. No significant joint effusion or perihardware fracture is seen. The pelvic bones are intact. Departure - Departure Disposition: 01 Home, Self Care Clinical Impression: Hip pain Condition: Good Instructions: ED Post Op Pain Follow-Up: Yoan Reyes MD [Provider Admit Priv/Credential] - Within 1 week Comments: Follow-up with Dr. Reyes for further care. It appears that one of your screws may need to be repositioned. I spoke with him tonight and he will follow up with you in the office.
--- NOTE | 2020-08-26 17:01 | XRAY Report ---
PROCEDURE: Hip w/Pelvis 2-3V LT INDICATIONS: prosthetic hip pain TECHNIQUE: AP pelvis with lateral view(s) of the left hip(s). COMPARISON: 07/27/2020. FINDINGS: Bones: Again noted is prior left total hip arthroplasty and fusion of lower lumbar spine at L4-S1 le vels. Alignment of left hip is unchanged from previous study. No gross hardware loosening or failure is seen. No periprosthetic fracture or dislocation. Pelvic ring appears intact. No suspicious bony lesions. Soft tissues: The visualized bowel gas pattern is normal. No suspicious soft tissue calcifications. IMPRESSION: Stable postarthroplasty changes in left hip with anatomic left hip alignment. No gross shannon rdware complication. No acute fracture or dislocation. Reviewed by: Jensen Kim MD on 08/26/2020 4:59 PM PST Approved by: Jensen Kim MD on 08/26/2020 4:59 PM PST Station ID: [id number]
[2020-08-26] MEDS ORDERED: diazePAM INJ 5 MG/ML SYRINGE IVP STA (17:35)
--- NOTE | 2020-08-26 18:23 | CT Report ---
PROCEDURE: LOWER EXTREMITY WO - LT INDICATIONS: L hip pain s/p ISABELLE TECHNIQUE: Noncontrast 3 mm axial sections acquired of the left hip, with coronal and sagittal reformats. COMPARISON: Left hip radiographs dated 08/26/2020. FINDINGS: Image quality: Excellent. Bones: Post surgical changes are seen from left total hip arthroplasty with associated metallic stre ak artifact that mildly compromises evaluation of surrounding structures. Mild lucency is seen surrou nding the anterior most acetabular screw that may be related to osteoarthrosis. The tip of the superi or is located within the iliacus muscle. The posterosuperior is down positioning without signs of loo sening. The lateral most screw is located just lateral to the iliac bone. The femoral and acetabular components are normally aligned without signs of hardware or dislocation of the radiolucent portion. No perihardware fracture is identified. There is no signs of loosening of the femoral stem. The pubic bones are intact. The right proximal femur is intact. Postsurgical changes are seen from po sterior fusion at the lumbosacral junction extending from L4 through S1. Soft tissues: No large joint effusion or periarticular masses identified. Moderate to severe atheros clerotic calcifications are seen in the aorta and iliac arteries. The included soft tissues of the pe lvis demonstrate no acute abnormality. The ligaments and tendons are not well evaluated with CT. The re is mild fatty infiltration of the musculature surrounding the hips. IMPRESSION: Left total hip arthroplasty is seen with intact metallic components as described above. There is mild lucency surrounding the anteriormost acetabular screw that may indicate mild osteolysis. However, no additional signs of significant loosening are identified. No significant joint effusion or perihardw are fracture is seen. The pelvic bones are intact. Reviewed by: Kristopher Naqvi MD on 08/26/2020 6:21 PM PST Approved by: Kristopher Naqvi MD on 08/26/2020 6:21 PM PST Station ID: [id number]
[2020-08-26 19:37] VITALS: BP 165/88
== END 2020-08-26 19:35 | disposition home or self-care (01) ==
LOC: EDUNIT# → ED 16:19
DX: M25.552 Pain in left hip (principal); Z96.642 Presence of left artificial hip joint; I10 Essential (primary) hypertension; M32.9 Systemic lupus erythematosus, unspecified
CPT/HCPCS: 96374; 99284

== ENCOUNTER 2020-08-31 16:09 | Outpatient (CLI) | payer MEDICARE, OTHER ==
[2020-08-31 21:22] LABS: CREATININE,URINE 71.5 mg/dL; PROTEIN/CREATININE RATIO,URINE 1.5 (<=0.2)
[2020-09-03 11:46] LABS: COMPLEMENT COMPONENT C3C 158 mg/dL (83-193); COMPLEMENT COMPONENT C4C 29 mg/dL (15-57)
== END 2020-08-31 16:10 | disposition home or self-care (01) ==
LOC: LAB.S 16:09
PROVIDERS: ATTEND Internal Medicine Nephrology
DX: M32.10 Systemic lupus erythematosus, organ or system involvement unspecified (principal); D89.89 Other specified disorders involving the immune mechanism, not elsewhere classified; R80.9 Proteinuria, unspecified
CPT/HCPCS: 36415; 81599; 82570; 84156; 86160; 86225

== ENCOUNTER 2020-11-16 08:00 | Outpatient (CLI) | payer MEDICARE, OTHER ==
--- NOTE | 2020-11-16 18:17 | XRAY Report ---
PROCEDURE: Chest 2 View X-Ray INDICATIONS: CHEST PAIN TECHNIQUE: 2 views of the chest. COMPARISON: None. FINDINGS: Surgical changes and devices: Lumbar spinal fusion hardware is partially included. Lungs and pleura: No pleural effusions or pneumothorax. Lungs are hyperexpanded and clear. Mediastinum: Mediastinal contours are normal. Heart size is normal. Atherosclerotic calcifications are seen in the aorta. Bones and chest wall: No suspicious bony abnormalities. Soft tissues appear unremarkable. Degenera tive changes are seen in the spine. IMPRESSION: Mildly hyperexpanded lungs can be seen in the setting of COPD. No acute cardiopulmonary abnormality is seen. Reviewed by: Kristopher Naqvi MD on 11/16/2020 5:16 PM RACHELLE Approved by: Kristopher Naqvi MD on 11/16/2020 5:16 PM RACHELLE Station ID: [id number]
[2020-11-16 20:02] LABS: BASOPHILS # (AUTO) 0.1 10^3/uL (0.0-0.1); BASOPHILS % (AUTO) 0.8 %; EOSINOPHILS # (AUTO) 0.6 10^3/uL (0.0-0.7); EOSINOPHILS % (AUTO) 5.5 %; HCT - HEMATOCRIT 44.7 % (37.0-47.0); HGB - HEMOGLOBIN 14.9 g/dL (12.0-16.0); LYMPHOCYTES # (AUTO) 2.8 10^3/uL (1.5-3.5); LYMPHOCYTES % (AUTO) 27.9 %; MEAN CORPUSCULAR HEMOGLOBIN 32.3 pg (27.0-31.0); MEAN CORPUSCULAR HGB CONC 33.3 g/dL (32.0-36.0); MEAN PLATELET VOLUME 12.2 fL (7.9-10.8); MONOCYTES # (AUTO) 1.2 10^3/uL (0.0-1.0); MONOCYTES % (AUTO) 11.3 %; NEUTROPHILS # (AUTO) 5.5 10^3/uL (1.5-6.6); NEUTROPHILS % (AUTO) 54.2 %; PLT - PLATELET COUNT 298 10^3/uL (130-450); RED BLOOD COUNT 4.61 10^6/uL (4.20-5.40); RED CELL DISTRIBUTION WIDTH 14.3 % (12.0-15.0); WHITE BLOOD COUNT 10.2 x10^3/uL (4.8-10.8)
[2020-11-16 20:26] LABS: ALBUMIN 2.5 g/dL (3.2-5.5); ALBUMIN/GLOBULIN RATIO 0.6 (1.0-2.2); ALKALINE PHOSPHATASE 98 IU/L (42-121); ALT ALANINE AMINOTRANSFERASE < 10 IU/L (10-60); AMYLASE 42 U/L (28-100); AST ASPARTATE AMINOTRANSFERASE 22 IU/L (10-42); BILIRUBIN,TOTAL 0.4 mg/dL (0.2-1.0); BUN - BLOOD UREA NITROGEN 12 mg/dL (6-20); CALCIUM 9.2 mg/dL (8.5-10.3); CARBON DIOXIDE - CO2 30 mmol/L (21-32); CHLORIDE 96 mmol/L (101-111); CHOLESTEROL 357 mg/dL; CREATININE 0.8 mg/dL (0.4-1.0); CRP - C-REACTIVE PROTEIN 5.5 mg/dL (0-1.0); GFR - MDRD 70 (>89); GLUCOSE 111 mg/dL (70-100); HDL CHOLESTEROL 118 mg/dL; LDL CHOLESTEROL,CALCULATED 208 mg/dL; LDL/HDL RATIO 1.8 (<4.4); LIPASE 23 U/L (22-51); POTASSIUM 3.7 mmol/L (3.5-5.0); SODIUM 136 mmol/L (135-145); THYROID STIMULATING HORMONE 2.46 uIU/mL (0.34-5.60); TOTAL PROTEIN 6.5 g/dL (6.7-8.2); TRIGLYCERIDES 153 mg/dL; VLDL CHOLESTEROL 31 mg/dL
== END 2020-11-16 23:59 | disposition home or self-care (01) ==
LOC: DI.S 08:00
PROVIDERS: ATTEND Physician Assistant Medical
DX: R07.89 Other chest pain (principal); R10.13 Epigastric pain; I12.9 Hypertensive chronic kidney disease with stage 1 through stage 4 chronic kidney disease, or unspecified chronic kidney disease; N18.30 Chronic kidney disease, stage 3 unspecified; D64.9 Anemia, unspecified
CPT/HCPCS: 36415; 80053; 80061; 82150; 83690; 83721; 84443; 84484; 85025; 86140

== ENCOUNTER 2020-11-22 23:20 | Outpatient (CLI) | payer MEDICARE, OTHER | END 2020-11-22 23:21 | disposition critical access hospital (66) | LOC: EMS 23:20 | PROVIDERS: ATTEND Emergency Medicine | DX: M25.552 Pain in left hip (principal); W18.30XA Fall on same level, unspecified, initial encounter; Y93.E9 Activity, other interior property and clothing maintenance | CPT/HCPCS: A0425; A0429 ==

== ENCOUNTER 2020-11-22 23:43 | Emergency (ER) | payer MEDICARE, OTHER ==
--- NOTE | 2020-11-22 23:48 | ED Physician Documentation ---
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 HEENT: Tonsil/Adenoidectomy - Present Medications Home Medications: Ambulatory Orders Medication Instructions Recorded Confirmed Propranolol HCl 0 mg PO BID 06/09/20 06/09/20 Carbidopa/Levodopa 2 tab PO BID PRN 06/17/20 06/17/20 [Carbidopa-Levodopa 25-100 Tab] Celecoxib [CeleBREX] 100 mg PO BID 30 Days #60 capsule 06/18/20 - Allergies Allergies/Adverse Reactions: Allergies Allergy/AdvReac Type Severity Reaction Status Date / Time gabapentin Allergy Respiratory Verified 08/26/20 16:24 - Social History Does the pt smoke?: No Smoking Status: Never smoker Does the pt have substance abuse?: No Results - Vitals Vitals: Oxygen O2 Source Room air
[2020-11-23 02:23] LABS: BASOPHILS # (AUTO) 0.1 10^3/uL (0.0-0.1); BASOPHILS % (AUTO) 0.8 %; EOSINOPHILS # (AUTO) 0.4 10^3/uL (0.0-0.7); EOSINOPHILS % (AUTO) 3.7 %; HCT - HEMATOCRIT 43.5 % (37.0-47.0); HGB - HEMOGLOBIN 14.4 g/dL (12.0-16.0); LYMPHOCYTES # (AUTO) 2.6 10^3/uL (1.5-3.5); LYMPHOCYTES % (AUTO) 25.9 %; MEAN CORPUSCULAR HGB CONC 33.1 g/dL (32.0-36.0); MEAN CORPUSCULAR VOLUME 96.7 fL (81.0-99.0); MEAN PLATELET VOLUME 11.6 fL (7.9-10.8); MONOCYTES # (AUTO) 0.8 10^3/uL (0.0-1.0); MONOCYTES % (AUTO) 8.2 %; NEUTROPHILS # (AUTO) 6.1 10^3/uL (1.5-6.6); NEUTROPHILS % (AUTO) 61.3 %; PLT - PLATELET COUNT 253 10^3/uL (130-450); RED CELL DISTRIBUTION WIDTH 14.2 % (12.0-15.0); WHITE BLOOD COUNT 9.9 x10^3/uL (4.8-10.8)
[2020-11-23] MEDS ORDERED: MORPHINE 2 MG/ML CARPUJECT IVP STA ×2 (02:25→03:41)
[2020-11-23] MEDS ORDERED: PROPOFOL 200 MG/20 ML VIAL IVP STA (02:25)
[2020-11-23 02:30] LABS: CALCIUM 8.6 mg/dL (8.5-10.3); CREATININE 0.9 mg/dL (0.4-1.0); POTASSIUM 3.8 mmol/L (3.5-5.0)
[2020-11-23] MEDS ORDERED: SODIUM CHLORIDE 0.9% 1,000 ML IV STA (03:41)
[2020-11-23 05:53] VITALS: BP 146/87
--- NOTE | 2020-11-23 08:31 | ED Physician Documentation ---
History of Present Illness - Stated complaint Stated Complaint: GLF - Chief complaint Chief Complaint: Trauma Ext - History obtained from History obtained from: Patient, EMS - History of Present Illness Timing: Prior to arrival Pain level max: 10 Pain level now: 8 Improved by: rest Worsened by: movement involving LLE - Additonal information Additional information: BIBA. 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 She did end up on the ground and was eventually able to crawl to a phone to call for help. She had left hip replacement May 2020. She had ED visit July 2020 for sudden onset left hip pain although w/u including imaging did not show any significant abnormality (radiologist's interpretation includes "mild lucency surrounding the anteriormost acetabular screw that may indicate mild osteolysis"). Patient says she has had intermittent, self-limited episodes of left hip discomfort over past 2-3 months and is scheduled to be reevaluated by her orthopedic surgeon tomorrow. Review of Systems Cardiac: reports: Reviewed and negative Respiratory: reports: Reviewed and negative GI: reports: Reviewed and negative Musculoskeletal: reports: Joint pain (left hip). 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 HEENT: Tonsil/Adenoidectomy - Present Medications Home Medications: Ambulatory Orders Medication Instructions Recorded Confirmed Propranolol HCl 10 mg PO BID 06/09/20 11/22/20 Carbidopa/Levodopa 2 tab PO BID PRN 06/17/20 11/22/20 [Carbidopa-Levodopa 25-100 Tab] Celecoxib [CeleBREX] 100 mg PO BID 30 Days #60 capsule 06/18/20 11/22/20 Butalbital/Acetaminophen 1 tab PO PRN PRN 11/22/20 11/22/20 [Butalbital-Acetaminophn 50325] - Allergies Allergies/Adverse Reactions: Allergies Allergy/AdvReac Type Severity Reaction Status Date / Time gabapentin Allergy Respiratory Verified 08/26/20 16:24 - Social History Does the pt smoke?: No Smoking Status: Never smoker Does the pt drink ETOH?: No Does the pt have substance abuse?: No - Immunizations Immunizations are current?: Yes PD ED PE NORMAL - Vitals Vital signs reviewed: Yes - General General: Alert and oriented X 3, No acute distress (NAD at rest but obvious painful distress with any movement involving LLE, particularly left hip), Well developed/nourished - HEENT HEENT: Atraumatic - Neck Neck: No bony TTP - Cardiac Cardiac: RRR, No murmur - Respiratory Respiratory: No respiratory distress, Clear bilaterally - Abdomen Abdomen: Soft, Non tender - Derm Derm: Normal color - Neuro Neuro: No sensory deficit PD ED PE EXPANDED - Extremities Extremities: Deformity, Tenderness, Limited ROM, Left hip, Pedal Pulses Present, Sensory intact, Vascular intact Results - Vitals Vitals: Vital Signs - 24 hr 11/22/20 11/23/20 11/23/20 23:49 03:02 03:49 Temperature 37.4 C Heart Rate 58 L 61 81 Respiratory 18 15 12 Rate Blood Pressure 144/99 H 131/85 H O2 Saturation 98 100 96 11/23/20 11/23/20 11/23/20 03:50 03:51 03:53 Temperature Heart Rate 56 L 70 58 L Respiratory 12 14 Rate Blood Pressure 135/89 H O2 Saturation 93 97 11/23/20 11/23/20 11/23/20 03:57 03:58 04:02 Temperature Heart Rate 57 L 58 L 58 L Respiratory 16 16 21 Rate Blood Pressure 117/83 H 117/83 H 129/78 O2 Saturation 100 100 98 11/23/20 11/23/20 11/23/20 04:05 04:13 04:15 Temperature Heart Rate 57 L 60 57 L Respiratory 12 14 13 Rate Blood Pressure 124/65 99/50 L 139/89 H O2 Saturation 99 99 96 11/23/20 11/23/20 11/23/20 04:20 04:49 05:22 Temperature 36.6 C Heart Rate 63 61 65 Respiratory 12 12 19 Rate Blood Pressure 150/89 H 154/84 H 159/81 H O2 Saturation 97 100 99 11/23/20 05:52 Temperature Heart Rate 61 Respiratory 14 Rate Blood Pressure 146/87 H O2 Saturation 95 Oxygen O2 Source Room air - Labs Labs: Laboratory Tests 11/23/20 11/23/20 02:18 02:18 WBC 9.9 RBC 4.50 Hgb 14.4 Hct 43.5 MCV 96.7 MCH 32.0 H MCHC 33.1 RDW 14.2 Plt Count 253 MPV 11.6 H Neut # (Auto) 6.1 Lymph # (Auto) 2.6 [place] # (Auto) 0.8 Eos # (Auto) 0.4 Baso # (Auto) 0.1 Absolute Nucleated RBC 0.00 Nucleated RBC % 0.0 Sodium 133 L Potassium 3.8 Chloride 97 L Carbon Dioxide 28 Anion Gap 8.0 BUN 19 Creatinine 0.9 Estimated GFR (MDRD) 61 L Glucose 119 H Calcium 8.6 - Rads (name of study) left hip xrays w/ pelvis Radiology: Prelim report reviewed, See rad report post-reduction left hip/pelvis xrays Radiology: Prelim report reviewed, See rad report Procedures - Reduction Body part reduced: Left, Hip, prosthetic Anesthesia: Conscious sedation, Morphine, Propofol Hip reduction technique: Allis - flex/pull/rotate Reduction aftercare: NV intact, Xray confirms reduction, Alignment improved, Patient tolerated well - Procedural sedation Sedation prep: Informed consent, Time out completed, PE performed, ASA 2 - mild disease, IV O2 monitor, ET CO2 monitor, RT present Sedation medications: morphine, propofol, given by RN (morphine), given by MD (propofol) Patient status during sedation: Responds to tactile, Vitals remained stable, Maintained airway, Recovered uneventfully, Respiratory depression (approximately 30-45 seconds of hypopnea and mild hypoxia with pulse ox trending down slowly to 90% but rapidly improved with gentle assisted respirations using BVM, then resumed adequate respirations without assistance and 98-100% pulse ox on room air), Hypoxia Sedation recovery: Recovered uneventfully Time in sedation (Minutes): 15 PD MEDICAL DECISION MAKING - ED course Complexity details: reviewed results, re-evaluated patient, considered differential, d/w patient ED course: presents with left prosthetic hip dislocation which is reduced in ED under conscious sedation, uneventful recovery. During procedure she had brief (less than 1 minute) hypopnea with mild hypoxia (90% pulse ox) that corrected rapidly with gently assisted breaths using BVM and high-flow oxygen, then resumed normal respiratory rate and rapidly returned to 98-100% pulse ox on room air. Case d/w Dr. Romo; patient is safe and appropriate for discharge. He recommends providing abduction pillow if available. Patient has f/u appointment already scheduled for later today with her orthopedic surgeon and will keep this appointment. Patient is eager to be discharged home and is comfortable with this plan. Abduction pillow is not available in ED. Departure - Departure Disposition: 01 Home, Self Care Clinical Impression: Failure of left total hip arthroplasty with dislocation of hip Qualifiers: Encounter type: initial encounter Qualified Code(s): T84.021A - Dislocation of internal left hip prosthesis, initial encounter Condition: Good Instructions: ED Sedation Procedural Discon, ED Hip Replace Dislocation Reduc Follow-Up: Yoan Reyes MD [Provider Admit Priv/Credential] - (Today as scheduled ) Discharge Date/Time: 11/23/20 06:25
--- NOTE | 2020-11-23 09:19 | XRAY Report ---
PROCEDURE: Hip w/Pelvis 2-3V LT INDICATIONS: left hip pain TECHNIQUE: AP pelvis with lateral view(s) of the left hip(s). COMPARISON: Xray pelvis 08/26/2020 FINDINGS: Bones: Left hip arthroplasty demonstrates anterior left lateral dislocation. No hardware fracture is identified. No osseous fracture. Pelvic ring appears intact. No suspicious bony lesions. Soft tissues: The visualized bowel gas pattern is normal. No suspicious soft tissue calcifications. IMPRESSION: Arthroplasty dislocation without fracture. Reviewed by: Katie Hodgson MD on 11/23/2020 9:17 AM PDT Approved by: Katie Hodgson MD on 11/23/2020 9:17 AM PDT Station ID: [id number]
--- NOTE | 2020-11-23 09:34 | XRAY Report ---
PROCEDURE: Hip w/Pelvis 2-3V LT INDICATIONS: post-reduction TECHNIQUE: AP pelvis with lateral view(s) of the bilateral hip(s). COMPARISON: None. FINDINGS: Bones: No fractures or dislocations. Pelvic ring appears intact. No suspicious bony lesions. Ther e has been interval reduction of previous left arthroplasty dislocation. There is good anatomic align ment. No hardware or osseous fracture is identified. Soft tissues: The visualized bowel gas pattern is normal. No suspicious soft tissue calcifications. IMPRESSION: Interval reduction with good anatomic alignment and no visualized fracture. The above findings are concordant with preliminary report. Reviewed by: Katie Hodgson MD on 11/23/2020 9:33 AM PDT Approved by: Katie Hodgson MD on 11/23/2020 9:33 AM PDT Station ID: [id number]
== END 2020-11-23 06:25 | disposition home or self-care (01) ==
LOC: EDBD → EDUNIT# → ED 23:43
DX: T84.021A Dislocation of internal left hip prosthesis, initial encounter (principal); Y83.8 Other surgical procedures as the cause of abnormal reaction of the patient, or of later complication, without mention of misadventure at the time of the procedure; W01.0XXA Fall on same level from slipping, tripping and stumbling without subsequent striking against object, initial encounter; Y93.E9 Activity, other interior property and clothing maintenance; Y92.003 Bedroom of unspecified non-institutional (private) residence as the place of occurrence of the external cause; R09.02 Hypoxemia; I10 Essential (primary) hypertension; M32.9 Systemic lupus erythematosus, unspecified
CPT/HCPCS: 27266; 36415; 80048; 85025; 94770; 99152; 99284

== ENCOUNTER 2020-11-24 21:02 | Outpatient (CLI) | payer MEDICARE, OTHER ==
--- OUTSIDE RECORDS SUMMARY | 2020-12-01 23:42 | EXTERNAL MEDICAL SUMMARY RPT | Continuity of Care Document ---
:1945 Demographics Phone Unavailable Preferred Language Unknown Marital Status Unknown Latter-Day Affiliation Unknown Race Unknown Ethnic Group Unknown Author Organization [facility] Address [address] [place] [address] Phone Social History date description facility [phone]
== END 2020-11-24 21:03 | disposition critical access hospital (66) ==
LOC: EMS 21:02
PROVIDERS: ATTEND Emergency Medicine
DX: M25.552 Pain in left hip (principal); M21.952 Unspecified acquired deformity of left thigh
CPT/HCPCS: A0425; A0429

== ENCOUNTER 2020-11-24 21:26 | Emergency (ER) | payer MEDICARE, OTHER ==
--- NOTE | 2020-11-24 22:40 | ED Physician Documentation ---
PD HPI LOWER EXT INJURY - Stated complaint Stated Complaint: L HIP PX - Chief complaint Chief Complaint: Ext Problem - History obtained from History obtained from: Patient - Additional information Additional information: Patient comes emergency department chief complaint of left hip pain and clicking when she walks. The patient was just seen here couple of days ago for dislocation of her left Prosthesis, and had this reduced in the emergency department under sedation. Patient states that she feels that it is still not very stable and she is worried that it may be popping out again. She has not seen Dr. Colon, who did her hip replacement 5 months ago, since the dislocation. Patient states she has been able to ambulate and has been using a cane. She has a walker at home but has not been using it. Patient states she has been trying to take it a little easier and did take a nap today. No numbness or tingling in her left foot. No other complaints at this time. Review of Systems Ten Systems: 10 systems reviewed and negative Constitutional: reports: Reviewed and negative Eyes: reports: Reviewed and negative Ears: reports: Reviewed and negative Nose: reports: Reviewed and negative Throat: reports: Reviewed and negative Cardiac: reports: Reviewed and negative Respiratory: reports: Reviewed and negative GI: reports: Reviewed and negative : reports: Reviewed and negative Skin: reports: Reviewed and negative Musculoskeletal: reports: Joint pain Neurologic: reports: Reviewed and negative Psychiatric: reports: Reviewed and negative Endocrine: reports: Reviewed and negative Immunocompromised: reports: Reviewed and negative PD PAST MEDICAL HISTORY - Past Medical History Cardiovascular: Hypertension Respiratory: Pneumonia Neuro: Other Endocrine/Autoimmune: Systemic lupus erythematosus GI: Colon polyps : None HEENT: Chronic vision loss Psych: Claustrophobia Musculoskeletal: Osteoarthritis, Fibromyalgia, Chronic back pain, Other Derm: None - Past Surgical History Past Surgical History: Yes General: Appendectomy, Colonoscopy Ortho: Hip replacement, 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 HEENT: Tonsil/Adenoidectomy - Present Medications Home Medications: Ambulatory Orders Medication Instructions Recorded Confirmed Propranolol HCl 10 mg PO BID 06/09/20 11/22/20 Carbidopa/Levodopa 2 tab PO BID PRN 06/17/20 11/22/20 [Carbidopa-Levodopa 25-100 Tab] Celecoxib [CeleBREX] 100 mg PO BID 30 Days #60 capsule 06/18/20 11/22/20 Butalbital/Acetaminophen 1 tab PO PRN PRN 11/22/20 11/22/20 [Butalbital-Acetaminophn 50-325] - Allergies Allergies/Adverse Reactions: Allergies Allergy/AdvReac Type Severity Reaction Status Date / Time gabapentin Allergy Respiratory Verified 11/24/20 21:35 - Social History Does the pt smoke?: No Smoking Status: Never smoker Does the pt drink ETOH?: No Does the pt have substance abuse?: No - Immunizations Immunizations are current?: Yes PD ED PE NORMAL - Vitals Vital signs reviewed: Yes - General General: Alert and oriented X 3, No acute distress - HEENT HEENT: Atraumatic, PERRL, EOMI, Moist mucous membranes - Neck Neck: Supple, no meningeal sign - Cardiac Cardiac: Strong equal pulses - Respiratory Respiratory: No respiratory distress - Derm Derm: Normal color, Warm and dry, No rash - Extremities Extremities: No deformity, Other (Left hip mild to moderate tenderness without deformity. 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, No motor deficit (Grossly), No sensory deficit, Normal speech - Psych Psych: Normal mood, Normal affect Results - Vitals Vitals: Vital Signs - 24 hr 11/24/20 11/24/20 11/24/20 21:30 22:49 23:20 Temperature 36.1 C L 36.9 C Heart Rate 61 58 L 61 Respiratory 16 20 18 Rate Blood Pressure 151/94 H 147/71 H 138/74 H O2 Saturation 97 95 95 Oxygen O2 Source Room air - Rads (name of study) L hip XR Radiology: Final report received, EMP read indepedently, See rad report (nad) PD MEDICAL DECISION MAKING - ED course Complexity details: reviewed old records, reviewed results, re-evaluated patient, considered differential, d/w patient ED course: Patient was worked up with x-ray series of left hip and pelvis, which was unremarkable. I discussed with the patient that her x-rays do not show evidence of new dislocation. The patient is extremely anxious over the idea that her hip could dislocate again, and I have discussed with her that having a prosthesis, she is at a much higher likelihood of dislocation. However, we have discussed That she should avoid the movements that put her at risk for this, as outlined for her after her surgery. Patient should also avoid any movement or position that is similar to the one that caused her to dislocate recently. Patient is encouraged to call Dr. Hopkins's office first thing the morning to set up follow-up appointment to to discuss her concerns. I have advised her that the emergency department cannot do anything to prevent her from dislocating and that it is up to her to avoid movements and positions that could precipitate this. I have also advised her that should she dislocate again, she should return to the emergency department immediately. Departure - Departure Disposition: 01 Home, Self Care Clinical Impression: Hip pain, left Condition: Stable Comments: Your x-ray looks good. There is no dislocation of your hip today. As we discussed, it is not uncommon for a joint that is recently dislocated to feel loose and even to click. This is why it is highly advisable not to do any extreme bending/movements, strenuous activity, or excessive use of the joint for the first week after dislocation. Following the first week, you may slowly return to use of the joint, but should still avoid extreme bending or strenuous movement until the joint feels completely back to normal. If you have further concerns about the replaced hip, you should call Dr. Reyes's office and make an appointment to follow-up with him. Please call first thing in the morning. You may use ibuprofen and/or Tylenol to help with the pain. Please also use your walker for getting around to help unburden your hip. Discharge Date/Time: 11/24/20 23:21
[2020-11-24 23:21] VITALS: BP 138/74
--- NOTE | 2020-11-25 11:12 | XRAY Report ---
PROCEDURE: Hip w/Pelvis 2-3V LT INDICATIONS: hip pain TECHNIQUE: AP pelvis with lateral view(s) of the left hip(s). COMPARISON: X-ray pelvis is 11/23/20 FINDINGS: Bones: No fractures or dislocations. Pelvic ring appears intact. No suspicious bony lesions. Limi liliana arthroplasty is present. Hardware is without periprosthetic lucency or hardware fracture. Lower l umbar fusion hardware is present. Moderate arthritic changes present within the right hip. Soft tissues: The visualized bowel gas pattern is normal. No suspicious soft tissue calcifications. IMPRESSION: Stable interval exam. No visualized acute fracture or dislocation. However, occult injur y cannot be excluded. Recommend short interval imaging follow-up in 7-10 days as clinically indicated for additional evaluation. The above findings are concordant with preliminary report. Reviewed by: Katie Hodgson MD on 11/25/2020 11:10 AM PDT Approved by: Katie Hodgson MD on 11/25/2020 11:10 AM PDT Station ID: [id number]
== END 2020-11-24 23:21 | disposition home or self-care (01) ==
LOC: EDUNIT# → ED 21:26
DX: M25.552 Pain in left hip (principal); R29.4 Clicking hip; Z96.642 Presence of left artificial hip joint; I10 Essential (primary) hypertension; M32.9 Systemic lupus erythematosus, unspecified
CPT/HCPCS: 99282; 99283

== ENCOUNTER 2020-12-02 | Outpatient (CLI) | payer MEDICARE, OTHER | END 2020-12-02 15:43 | disposition critical access hospital (66) | DX: M25.552 Pain in left hip (principal) | CPT/HCPCS: A0425; A0429 ==

== ENCOUNTER 2020-12-02 16:06 | Emergency (ER) | payer MEDICARE, OTHER ==
--- OUTSIDE RECORDS SUMMARY | 2020-12-02 16:13 | EXTERNAL MEDICAL SUMMARY RPT | Continuity of Care Document ---
:1945 Demographics Phone Unavailable Preferred Language Unknown Marital Status Unknown Alevism Affiliation Unknown Race Unknown Ethnic Group Unknown Author Organization [facility] Address [address] [place] [address] Phone Social History date description facility [phone]
[2020-12-02] MEDS ORDERED: HYDROmorphone 1 MG/ML CARPUJECT IM STA (16:47)
--- NOTE | 2020-12-02 16:47 | ED Physician Documentation ---
History of Present Illness - Stated complaint Stated Complaint: L HIP PX - Chief complaint Chief Complaint: Trauma Ext - Additonal information Additional information: 75-year-old female presents emergency department for evaluation that she may have a dislocated left hip. She has been seen multiple times recently for concerns of left hip dislocation. She does have a history of a left hip prosthesis. She was seen 1 week ago for similar. Patient states that this morning she was sitting in a chair and moved to stand and turn up when she felt sudden pain in the lateral hip and could not bear weight. Therefore she comes to the emergency department via EMS. Review of Systems Constitutional: denies: Fever, Chills Eyes: reports: Reviewed and negative Ears: reports: Reviewed and negative Nose: reports: Reviewed and negative Throat: reports: Reviewed and negative Cardiac: reports: Reviewed and negative Respiratory: reports: Reviewed and negative GI: reports: Reviewed and negative : reports: Reviewed and negative Skin: reports: Reviewed and negative Musculoskeletal: reports: Joint pain (left hip) PD PAST MEDICAL HISTORY - Past Medical History Past Medical History: Yes Cardiovascular: Hypertension Respiratory: Pneumonia Neuro: Headaches Endocrine/Autoimmune: Systemic lupus erythematosus GI: Colon polyps : None HEENT: Chronic vision loss Psych: Claustrophobia Musculoskeletal: Osteoarthritis, Fibromyalgia, Chronic back pain Derm: None - Past Surgical History Past Surgical History: Yes General: Appendectomy, Colonoscopy Ortho: Hip replacement, 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 HEENT: Tonsil/Adenoidectomy - Present Medications Home Medications: Ambulatory Orders Medication Instructions Recorded Confirmed Propranolol HCl 10 mg PO BID 06/09/20 12/02/20 Carbidopa/Levodopa 2 tab PO BID PRN 06/17/20 12/02/20 [Carbidopa-Levodopa 25-100 Tab] Butalbital/Acetaminophen 1 tab PO PRN PRN 11/22/20 12/02/20 [Butalbital-Acetaminophn 50-325] Irbesartan [Avapro] 75 mg PO DAILY 12/02/20 12/02/20 Rosuvastatin Calcium [Crestor] 0 mg DAILY 12/02/20 12/02/20 - Allergies Allergies/Adverse Reactions: Allergies Allergy/AdvReac Type Severity Reaction Status Date / Time gabapentin Allergy Respiratory Verified 11/24/20 21:35 - Social History Does the pt smoke?: No Smoking Status: Never smoker Does the pt drink ETOH?: No Does the pt have substance abuse?: No - Immunizations Immunizations are current?: Yes PD ED PE EXPANDED - General General: Alert, No acute distress - Extremities Extremities: Left hip (Distal pulses preserved. No shortening or malrotation. Tenderness the left lateral hip limiting passive range of motion.) Results - Vitals Vitals: Vital Signs - 24 hr 12/02/20 12/02/20 16:13 16:30 Temperature 37.0 C Heart Rate 78 60 Respiratory 18 16 Rate Blood Pressure 193/102 H 205/120 H O2 Saturation 99 97 Oxygen O2 Source Room air - Rads (name of study) left hip/femur Radiology: Final report received, Other (No acute fracture or dislocation. Hardware intact and in place.) PD MEDICAL DECISION MAKING - ED course Complexity details: reviewed results, re-evaluated patient, d/w patient, d/w senior consumer insights consultant (Amy) ED course: Again [id number] female presents to the emergency department for evaluation of acute left hip pain he was moving from a seated position. She felt that the hip was dislocated. On presentation she is neurovascularly intact. The leg is not shortened or malrotated. X-ray of the femur and the hip do not show any displaced hardware fracture or dislocation. However the patient will not allow me to range the leg. Initially patient was given Dilaudid with mild relief of pain and this was repeated. However she still is unwilling to allow me to range the leg. I did discuss with Dr. Colon our orthopedic surgeon and the gentleman who did her hip replacement and he recommended a ileofacial nerve block here in the emergency department to be done with anesthesia. 1715: i have spoken with Mesha Gonzalez CRNA on-call for anesthesia. she agrees to come into the ED for complete the nerve block 1830: Left iliofacial nerve block has been completed with anesthesia. Following this the patient is able to sit up and ambulate using a walker with minimal assistance. pt now able to range her hip. She still has mild left medial groin pain but the lateral hip pain is markedly improved. At this time patient is stable for discharge home. She has follow-up scheduled tomorrow with Dr. Reyes. Emergent return precautions were discussed. Departure - Departure Disposition: Home, Self Care Clinical Impression: Left hip pain Condition: Stable Record reviewed to determine appropriate education?: Yes Follow-Up: Yoan Reyes MD [Provider Admit Priv/Credential] - Comments: You were seen in the emergency department today for left hip pain. Your concern was that you may have dislocated the hip. As we discussed this is much harder to do once her prosthesis is in place. Reassuringly the x-ray of your hip and leg do not show any displacement of the bones, fractures. Your hardware is also in place normally. I suspect that the cause of your pain is inflammation in the muscles of the hip and groin. You were given a nerve block here in the emergency department which improved your pain quite a bit and enable you to get up and ambulate with a walker. Please use a walker at all times when you are at home until your pain begins to get better. Do not miss the follow-up appointment with Dr. Reyes tomorrow as scheduled.
[2020-12-02] MEDS ORDERED: HYDROmorphone 1 MG/ML CARPUJECT IVP STA (16:50)
--- NOTE | 2020-12-02 16:55 | XRAY Report ---
PROCEDURE: Hip w/Pelvis 2-3V LT INDICATIONS: hip pain; prior prosthesis TECHNIQUE: AP pelvis with crosstable lateral view of left hip. COMPARISON: Left hip radiographs 11/24/2020 FINDINGS: Bones: Postsurgical changes from left total hip arthroplasty. The hardware positioning appears uncha nged. No osseous fracture is seen. There is generalized osteopenia. Pelvic ring appears intact. No s uspicious bony lesions. Postsurgical changes are seen in the lower lumbar spine, which appear unchan ged. Multilevel degenerative changes are seen in the lumbar spine. Soft tissues: The visualized bowel gas pattern is normal. No suspicious soft tissue calcifications. IMPRESSION: Unchanged postsurgical findings in the left hip. No acute osseous abnormality is identif ied. Reviewed by: Kristopher Naqvi MD on 12/02/2020 4:54 PM PDT Approved by: Kristopher Naqvi MD on 12/02/2020 4:54 PM PDT Station ID: [id number]
--- NOTE | 2020-12-02 17:09 | XRAY Report ---
PROCEDURE: Femur 2V LT INDICATIONS: hip pain ; ? fx or dislocation TECHNIQUE: 2 views of the femur were acquired. COMPARISON: Hip and pelvis plain films 12/02/2020 and 11/24/2020 FINDINGS: Bones: No fractures or dislocations. No suspicious bony lesions. Soft tissues: No suspicious soft tissue calcifications or masses. IMPRESSION: There is a previously present left total hip arthroplasty with the inferior femoral component include d on this examination and showing no evidence of loosening or disruption. More distally the femur is free of fracture or dislocation. Note is made of moderately severe medial compartment knee joint oste oarthritic joint space narrowing. No definite joint effusion or loose body seen in the suprapatellar bursal space on the lateral view. Reviewed by: Edison Fuchs MD on 12/02/2020 5:07 PM PDT Approved by: Edison Fuchs MD on 12/02/2020 5:07 PM PDT Station ID: [id number]
[2020-12-02] MEDS ORDERED: ROPIVACAINE 0.5% PF 20 ML AMPULE EP ONE (17:52)
[2020-12-02] MEDS ORDERED: DEXAMETHASONE 10 MG/ML VIAL IM STA (17:53)
[2020-12-02 19:37] VITALS: BP 191/116
== END 2020-12-02 19:00 | disposition home or self-care (01) ==
LOC: EDUNIT# → SUPCPDRO 16:06 → ED 16:06
DX: M25.552 Pain in left hip (principal); Z96.642 Presence of left artificial hip joint; I10 Essential (primary) hypertension; M32.9 Systemic lupus erythematosus, unspecified
CPT/HCPCS: 64450; 73502; 73552; 96374; 96375; 99283; 99284; J1170

== ENCOUNTER 2020-12-20 | Outpatient (CLI) | payer MEDICARE, OTHER | END 2020-12-20 15:39 | disposition critical access hospital (66) | DX: M25.552 Pain in left hip (principal) | CPT/HCPCS: A0425; A0427 ==

== ENCOUNTER 2020-12-20 16:01 | Emergency (ER) | payer MEDICARE, OTHER ==
--- NOTE | 2020-12-20 16:06 | ED Physician Documentation ---
PD HPI LOWER EXT INJURY - Stated complaint Stated Complaint: LT HIP DISLOCATED - History obtained from History obtained from: Patient - Additional information Additional information: This is a stephanie 75-year-old woman who had her hip replaced in May of last year by Dr. Reyes here. She has had recurrent issues with hip dislocations since then. She dislocated on November 23, she has a pending referral to [facility] for this. She was getting out of bed today and developed severe left hip pain consistent with prior dislocations. She is unable to walk or bear weight. Pain is currently controlled as she had [address] of [address] on the way here. Review of Systems Ten Systems: 10 systems reviewed and negative Constitutional: reports: Reviewed and negative Cardiac: reports: Reviewed and negative Respiratory: reports: Reviewed and negative PD PAST MEDICAL HISTORY - Past Medical History Cardiovascular: Hypertension Respiratory: Pneumonia Neuro: Other Endocrine/Autoimmune: Systemic lupus erythematosus GI: Colon polyps : None HEENT: Chronic vision loss Psych: Claustrophobia Musculoskeletal: Osteoarthritis, Fibromyalgia, Chronic back pain, Other Derm: None - Past Surgical History Past Surgical History: Yes General: Appendectomy, Colonoscopy Ortho: Hip replacement, 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 HEENT: Tonsil/Adenoidectomy - Present Medications Home Medications: Ambulatory Orders Medication Instructions Recorded Confirmed Propranolol HCl 10 mg PO BID 06/09/20 12/02/20 Carbidopa/Levodopa 2 tab PO BID PRN 06/17/20 12/02/20 [Carbidopa-Levodopa 25-100 Tab] Butalbital/Acetaminophen 1 tab PO PRN PRN 11/22/20 12/02/20 [Butalbital-Acetaminophn 50-325] Irbesartan [Avapro] 75 mg PO DAILY 12/02/20 12/02/20 Rosuvastatin Calcium [Crestor] 0 mg DAILY 12/02/20 12/02/20 Oxycodone HCl/Acetaminophen 1 - 2 each PO Q6H PRN #14 tablet 12/20/20 [Percocet 5-325 mg Tablet] - Allergies Allergies/Adverse Reactions: Allergies Allergy/AdvReac Type Severity Reaction Status Date / Time gabapentin Allergy Respiratory Verified 11/24/20 21:35 - Social History Does the pt smoke?: No Smoking Status: Never smoker Does the pt drink ETOH?: No Does the pt have substance abuse?: No - Immunizations Immunizations are current?: Yes PD ED PE NORMAL - Vitals Vital signs reviewed: Yes - General General: Alert and oriented X 3, No acute distress - HEENT HEENT: PERRL, EOMI - Cardiac Cardiac: RRR, No murmur - Respiratory Respiratory: No respiratory distress, Clear bilaterally - Abdomen Abdomen: Non tender - Extremities Extremities: Other (She cannot move the hip at all and has severe pain with any attempt at internal or external rotation. That said the hip is not angulated or shortened.) - Neuro Neuro: Alert and oriented X 3, Normal speech Results - Vitals Vitals: Vital Signs - 24 hr 12/20/20 12/20/20 12/20/20 16:05 16:45 18:16 Temperature 36.9 C Heart Rate 50 L 51 L 56 L Respiratory 17 17 16 Rate Blood Pressure 203/113 H 203/101 H 190/100 H O2 Saturation 96 95 96 Oxygen O2 Source Room air - Rads (name of study) L hip XR Radiology: EMP read contemporaneously (NAD) Procedures - General procedure General procedure: Combination left hip Fascia iliaca and femoral nerve block was done with a total of 8 mL of 0.5% ropivacaine, Using real-time ultrasound guidance. PD MEDICAL DECISION MAKING - ED course ED course: Review of the records show that she dislocated on 11/23. She was seen here on August 26, at that time she had a CT done showing potential osteolysis of one of the anterior acetabular screws. She was seen again on November 24, she was not dislocated at that time., Again on December 02, she was not dislocated, at that time she had a fascia iliac off aqua block which helped a lot. I attempted this , after an appropriate length of time it seemed like the lateral part of the thigh was anesthetized but the hip was not. I spoke with TRINA Shoemaker by phone who will come in and repeat. After the CARAMEL MAKER's fascia iliac a block she also did not have much relief with her pain. This was followed by some Toradol and Dilaudid IV. Other than a numb leg she felt like she was functional after the Dilaudid and Toradol and all but demanded discharge. Departure - Departure Disposition: 01 Home, Self Care Clinical Impression: Hip pain, left Condition: Good Record reviewed to determine appropriate education?: Yes Follow-Up: Yoan Reyes MD [Provider Admit Priv/Credential] - Within 3 Days Prescriptions: Oxycodone HCl/Acetaminophen [Percocet 5-325 mg Tablet] 1 - 2 each PO Q6H PRN #14 tablet PRN Reason: pain Comments: Do not drink or drive while taking narcotic pain medication. Note that many narcotic pain relievers also contain Tylenol/acetaminophen. Please ensure that your total dose of acetaminophen from all sources does not exceed 3 g (3000 mg) per day. You may get constipated while on this medication. Take a stool softener such as Colace twice a day while you are on it. Also add an [id number] laxative such as senna or MiraLAX on any day that you do not have a bowel movement. If you received a narcotic pain medication or sedative while in the emergency department, do not drive for the next 24 hours.
[2020-12-20] MEDS ORDERED: ROPIVACAINE 0.5% PF 20 ML AMPULE SUBQ STA (16:15)
--- NOTE | 2020-12-20 16:43 | XRAY Report ---
PROCEDURE: Hip w/Pelvis 2-3V LT INDICATIONS: hip pain TECHNIQUE: AP pelvis with lateral view(s) of the left hip(s). COMPARISON: 12/02/2020, 11/24/2020, 11/23/2020 FINDINGS: Bones: No fractures or dislocations. Pelvic ring appears intact. No suspicious bony lesions. Left upper posterior hardware is seen. No findings of hardware failure or hardware loosening can be s een. There is moderate superior joint space narrowing seen involving the right hip. There is associated re modeling change, with subchondral sclerosis and osteophyte formation. Lumbosacral fixation hardware is seen, with underlying degenerative change. Soft tissues: The visualized bowel gas pattern is normal. No suspicious soft tissue calcifications. IMPRESSION: Unremarkable left hip arthroplasty hardware. Moderate right hip degenerative change. Lumbosacral degenerative change and fixation hardware. Reviewed by: Chuck Vargas MD on 12/20/2020 3:41 PM RACHELLE Approved by: Chuck Vargas MD on 12/20/2020 3:41 PM AKSANDRA Station ID: [id number]
--- OUTSIDE RECORDS SUMMARY | 2020-12-20 17:22 | EXTERNAL MEDICAL SUMMARY RPT | Continuity of Care Document ---
:1945 Demographics Phone Unavailable Preferred Language Unknown Marital Status Unknown Quaker Affiliation Unknown Race Unknown Ethnic Group Unknown Author Organization [facility] Address [address] [place] [address] Phone Social History date description facility [phone]
[2020-12-20] MEDS ORDERED: DEXAMETHASONE 10 MG/ML VIAL ONE (17:44)
[2020-12-20] MEDS ORDERED: ROPIVACAINE 0.5% PF 20 ML AMPULE ONE (17:44)
[2020-12-20] MEDS ORDERED: LIDOCAINE-MPF 2% 5 ML VIAL ONE (17:45)
[2020-12-20] MEDS ORDERED: EPINEPHrine 1 MG/ML AMP ONE (17:45)
[2020-12-20] MEDS ORDERED: SODIUM CHLORIDE 0.9% 10 ML VIAL IVP ONE (17:45)
--- NOTE | 2020-12-20 18:20 | CONSULTATION NOTE ---
Consultation Report: Called to ER by Dr. Arias. Patient having 9.5/10 pain in left hip s/p Left ISABELLE. Patient described as medial/groin pain at first but also as lateral pain. Patient had received Fascia Iliaca block previously in ED. Discussed options with patient(FIB, Femoral nerve block). Discussed possible leg weakness/difficulty ambulating if discharged with block in place. Patient agreed to FIB. Pt consented, TO completed with ED RN, Lidocaine 1% injected subcutaneously, Fascia iliaca identfied with Ultrasound, 40 mL of 0.25% Ropivacaine with 1:200k epi and Decadron 10mg injected in step manjarrez fashion with negative aspiration. Patient tolerated procedure well.
[2020-12-20] MEDS ORDERED: KETOROLAC 30 MG/ML VIAL IVP STA (18:21)
[2020-12-20] MEDS ORDERED: HYDROmorphone 1 MG/ML CARPUJECT IVP STA (18:21)
--- NOTE | 2020-12-20 18:21 | ANESTHESIA ---
Pre-Anesthesia VS, & Labs - Diagnosis left hip pain - Procedure Left fascia iliaca block Vital Signs: Temp Pulse Resp BP Pulse Ox 36.9 C 51 L 17 203/101 H 95 12/20/20 16:05 12/20/20 16:45 12/20/20 16:45 12/20/20 16:45 12/20/20 16:45 Height: 5 ft Weight (kg): 46.72 kg Body Mass Index: 20.1 BMI Classification: Healthy weight - Is Patient ?: No - Lab Results Lab results reviewed: Yes Home Medications and Allergies Propranolol HCl 10 mg PO BID 06/09/20 Carbidopa/Levodopa [Carbidopa-Levodopa 25-100 Tab] 2 tab PO BID PRN 06/17/20 Butalbital/Acetaminophen [Butalbital-Acetaminophn 50-325] 1 tab PO PRN PRN 11/22/20 Irbesartan [Avapro] 75 mg PO DAILY 12/02/20 Rosuvastatin Calcium [Crestor] 0 mg DAILY 12/02/20 Allergies/Adverse Reactions: Allergies Allergy/AdvReac Type Severity Reaction Status Date / Time gabapentin Allergy Respiratory Verified 11/24/20 21:35 Anes History & Medical History - Anesthetic History Anesthesia Complications: reports: No previous complications Family history of Anesthesia Complications: Denies Family history of Malignant Hyperthermia: Denies - Medical History Cardiovascular: reports: Hypertension Pulmonary: reports: Pneumonia Gastrointestinal: reports: Colon polyps Urinary: reports: None Neuro: reports: Other Musculoskeletal: reports: Osteoarthritis, Fibromyalgia, Chronic back pain, Other Endocrine/Autoimmune: reports: Systemic lupus erythematosus Skin: reports: None Smoking Status: Never smoker - Surgical History General: reports: Appendectomy, Colonoscopy Eyes Ears Nose Throat (EENT): reports: Tonsil/Adenoidectomy Urologic: reports: Bladder surgery Gynecologic: reports: Other Orthopedic: reports: Hip replacement, Spine surgery Exam General: Alert, Oriented x3, Cooperative, No acute distress Plan Anesthesia Type: Fascia Iliaca Block Regional Block: Per Surgeon's request for Post Op pain control Consent for Procedure(s) Verified and Reviewed: Yes Code Status: Attempt Resuscitation ASA classification: 2-Mild systemic disease Is this case an emergency?: No
[2020-12-20] MEDS ORDERED: oxyCODONE/ACET 5/325 Prepack 4 PO STA (18:59)
[2020-12-20 20:14] VITALS: BP 180/90
== END 2020-12-20 20:25 | disposition home or self-care (01) ==
LOC: EDUNIT# → ED 16:01
DX: M25.552 Pain in left hip (principal); Z96.642 Presence of left artificial hip joint; I10 Essential (primary) hypertension; M32.9 Systemic lupus erythematosus, unspecified
CPT/HCPCS: 64447; 73502; 96374; 96375; 99283; 99284; J1170

== ENCOUNTER 2021-01-13 18:44 | Outpatient (CLI) | payer MEDICARE, OTHER ==
[2021-01-13 20:46] LABS: CREATININE,URINE 155.9 mg/dL; PROTEIN/CREATININE RATIO,URINE 9.9 (<=0.2)
== END 2021-01-13 18:45 | disposition home or self-care (01) ==
LOC: LAB.S 18:44
PROVIDERS: ATTEND Internal Medicine Nephrology
DX: R80.9 Proteinuria, unspecified (principal)
CPT/HCPCS: 82570; 84156

== ENCOUNTER 2021-01-27 14:23 | Outpatient (CLI) | payer MEDICARE, OTHER | END 2021-01-27 14:24 | disposition critical access hospital (66) | LOC: EMS 14:23 | DX: M25.552 Pain in left hip (principal); M25.562 Pain in left knee | CPT/HCPCS: A0425; A0427 ==

== ENCOUNTER 2021-03-30 10:17 | Outpatient (CLI) | payer MEDICARE, OTHER | END 2021-03-30 10:18 | disposition EMS.NT | LOC: EMS 10:17 | DX: R55 Syncope and collapse (principal); R41.0 Disorientation, unspecified; R25.1 Tremor, unspecified ==

== ENCOUNTER 2021-04-05 13:14 | Outpatient (CLI) | payer MEDICARE, OTHER | END 2021-04-05 13:15 | disposition short-term general hospital (02) | LOC: EMS 13:14 | DX: S73.005A Unspecified dislocation of left hip, initial encounter (principal); X58.XXXA Exposure to other specified factors, initial encounter; Y93.E8 Activity, other personal hygiene; Y92.009 Unspecified place in unspecified non-institutional (private) residence as the place of occurrence of the external cause | CPT/HCPCS: A0425; A0429 ==

== ENCOUNTER 2021-04-09 17:07 | Outpatient (CLI) | payer MEDICARE, OTHER | END 2021-04-09 17:08 | disposition critical access hospital (66) | LOC: EMS 17:07 | DX: S73.005A Unspecified dislocation of left hip, initial encounter (principal); X58.XXXA Exposure to other specified factors, initial encounter; Y93.89 Activity, other specified; Y92.003 Bedroom of unspecified non-institutional (private) residence as the place of occurrence of the external cause | CPT/HCPCS: A0425; A0429 ==

== ENCOUNTER 2021-04-09 17:33 | Emergency (ER) | payer MEDICARE, OTHER ==
[2021-04-09] MEDS ORDERED: PROPOFOL 200 MG/20 ML VIAL IVP STA ×2 (17:53→18:35)
--- NOTE | 2021-04-09 17:55 | ED Physician Documentation ---
PD HPI LOWER EXT INJURY - Stated complaint Stated Complaint: L HIP DISLOCATION - Chief complaint Chief Complaint: Ext Problem - History obtained from History obtained from: Patient - Additional information Additional information: 76-year-old woman with recurrent hip Dislocation, at this point it is dislocating with no significant mechanism. This is her third time in as many weeks. 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 HEENT: Tonsil/Adenoidectomy - Present Medications Home Medications: Ambulatory Orders Medication Instructions Recorded Confirmed Propranolol HCl 10 mg PO BID 06/09/20 12/02/20 Carbidopa/Levodopa 2 tab PO BID PRN 06/17/20 12/02/20 [Carbidopa-Levodopa 25-100 Tab] Butalbital/Acetaminophen 1 tab PO PRN PRN 11/22/20 12/02/20 [Butalbital-Acetaminophn 50-325] Irbesartan [Avapro] 75 mg PO DAILY 12/02/20 12/02/20 Rosuvastatin Calcium [Crestor] 0 mg DAILY 12/02/20 12/02/20 Oxycodone HCl/Acetaminophen 1 - 2 each PO Q6H PRN #14 tablet 12/20/20 [Percocet 5-325 mg Tablet] - Allergies Allergies/Adverse Reactions: Allergies Allergy/AdvReac Type Severity Reaction Status Date / Time gabapentin Allergy Respiratory Verified 04/09/21 17:42 - Social History Does the pt smoke?: No Smoking Status: Never smoker Does the pt drink ETOH?: No Does the pt have substance abuse?: No - Immunizations Immunizations are current?: Yes PD ED PE NORMAL - Vitals Vital signs reviewed: Yes - General General: Alert and oriented X 3, No acute distress - HEENT HEENT: Pharynx benign - Cardiac Cardiac: RRR, No murmur - Respiratory Respiratory: No respiratory distress, Clear bilaterally - Abdomen Abdomen: Non tender - Extremities Extremities: No edema, No calf tenderness / cord, Other (Externally rotated shortened left hip) - Neuro Neuro: Alert and oriented X 3, Normal speech Results - Vitals Vitals: Vital Signs - 24 hr 04/09/21 04/09/21 04/09/21 17:34 18:15 18:30 Temperature 36.4 C L Heart Rate 52 L 51 L 55 L Respiratory 16 18 12 Rate Blood Pressure 110/56 L 113/68 113/68 O2 Saturation 100 97 99 04/09/21 04/09/21 04/09/21 18:40 18:45 18:46 Temperature Heart Rate 55 L 55 L 51 L Respiratory 19 12 21 Rate Blood Pressure 130/64 95/61 O2 Saturation 97 99 04/09/21 04/09/21 18:47 18:48 Temperature Heart Rate 51 L 55 L Respiratory 14 16 Rate Blood Pressure 101/62 120/69 O2 Saturation 97 100 Oxygen O2 Source Ambu bag Procedures - Reduction Body part reduced: Left, Hip, prosthetic Fracture or dislocation: Dislocation Hip reduction technique: Fulcrum Reduction aftercare: Alignment improved - Procedural sedation Mallampati classification: I Sedation prep: Informed consent, Time out completed, Last meal (1p), PE performed, ASA 2 - mild disease Sedation medications: propofol (40 then 30mg IVP) Patient status during sedation: Responds to tactile, Maintained airway Sedation recovery: Recovered uneventfully Time in sedation (Minutes): 12 Departure - Departure Disposition: 01 Home, Self Care Clinical Impression: Hip dislocation, left Qualifiers: Encounter type: initial encounter Qualified Code(s): S73.005A - Unspecified dislocation of left hip, initial encounter Condition: Good Record reviewed to determine appropriate education?: Yes Instructions: ED Hip Replace Dislocation Reduc Comments: Follow-up with your orthopedic surgeon, return for new or worsening symptoms.
--- NOTE | 2021-04-09 18:25 | XRAY Report ---
PROCEDURE: Hip w/Pelvis 2-3V LT INDICATIONS: Hip pain TECHNIQUE: AP pelvis with lateral view(s) of the bilateral hip(s). COMPARISON: 12/20/2020 hip radiographs FINDINGS: Complete dislocation of the left hip arthroplasty. The hardware appears grossly intact. The acetabula r cup appears unchanged in position. There is no perihardware lucency. No evidence of [place] bone fra cture. IMPRESSION: Complete left hip arthroplasty dislocation. Reviewed by: Iker Matias MD on 04/09/2021 6:23 PM PDT Approved by: Iker Matias MD on 04/09/2021 6:23 PM PDT Station ID: [id number]
[2021-04-09] MEDS ORDERED: HYDROmorphone 1 MG/ML CARPUJECT IVP STA (19:00)
--- NOTE | 2021-04-09 19:21 | XRAY Report ---
PROCEDURE: Hip w/Pelvis 2-3V LT INDICATIONS: Hip reduction TECHNIQUE: AP pelvis with lateral view(s) of the bilateral hip(s). COMPARISON: Same day left hip radiograph is FINDINGS: Successful interval reduction of the left hip. Remaining findings unchanged. IMPRESSION: Successful interval reduction of the left hip. Reviewed by: Iker Matias MD on 04/09/2021 7:20 PM PDT Approved by: Iker Matias MD on 04/09/2021 7:20 PM PDT Station ID: [id number]
[2021-04-09 19:35] VITALS: BP 159/83
== END 2021-04-09 19:47 | disposition home or self-care (01) ==
LOC: EDUNIT# → SUPCPDRO 17:33 → ED 17:33
DX: T84.021A Dislocation of internal left hip prosthesis, initial encounter (principal); Y79.2 Prosthetic and other implants, materials and accessory orthopedic devices associated with adverse incidents; I10 Essential (primary) hypertension; M32.9 Systemic lupus erythematosus, unspecified; M79.7 Fibromyalgia; F40.240 Claustrophobia; H54.7 Unspecified visual loss; Z79.899 Other long term (current) drug therapy
CPT/HCPCS: 27257; 73502; 96374; 99152; 99283; 99285; J1170; 94770

== ENCOUNTER 2021-04-12 20:46 | Outpatient (CLI) | payer MEDICARE, OTHER | END 2021-04-12 20:47 | disposition critical access hospital (66) | LOC: EMS 20:46 | DX: M25.552 Pain in left hip (principal) | CPT/HCPCS: A0425; A0429 ==

== ENCOUNTER 2021-04-12 21:08 | Emergency (ER) | payer MEDICARE, OTHER ==
[2021-04-12] MEDS ORDERED: PROPOFOL 200 MG/20 ML VIAL IVP STA ×3 (22:01→23:10)
[2021-04-12] MEDS ORDERED: SODIUM CHLORIDE 0.9% 500 ML IV STA (22:02)
--- NOTE | 2021-04-12 22:03 | ED Physician Documentation ---
History of Present Illness - Stated complaint Stated Complaint: L HIP PX/ DISLOCATION - Chief complaint Chief Complaint: Trauma Ext - History obtained from History obtained from: Patient - Additonal information Additional information: 76-year-old woman with past surgical history of left hip replacement, frequent ED visits for hip dislocation, most recent 3 days ago, presents with repeat dislocation this evening when she sat down to dinner. Pain was sudden onset localized to the left hip, nonradiating, aching, worse with movement. Associated with limb length discrepancy. Denies other injury. Last drink of water was an hour prior to arrival. Last meal >10h ago. 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/Adenoidectomy - Present Medications Home Medications: Ambulatory Orders Medication Instructions Recorded Confirmed Propranolol HCl 10 mg PO BID 06/09/20 04/12/21 Carbidopa/Levodopa 2 tab PO BID PRN 06/17/20 04/12/21 [Carbidopa-Levodopa 25-100 Tab] Butalbital/Acetaminophen 1 tab PO PRN PRN 11/22/20 04/12/21 [Butalbital-Acetaminophn 50-325] Irbesartan [Avapro] 75 mg PO DAILY 12/02/20 04/12/21 Rosuvastatin Calcium [Crestor] 0 mg DAILY 12/02/20 04/12/21 Oxycodone HCl/Acetaminophen 1 - 2 each PO Q6H PRN #14 tablet 12/20/20 04/12/21 [Percocet 5-325 mg Tablet] - Allergies Allergies/Adverse Reactions: Allergies Allergy/AdvReac Type Severity Reaction Status Date / Time gabapentin Allergy Respiratory Verified 04/12/21 21:11 - Social History Does the pt smoke?: No Smoking Status: Never smoker Does the pt drink ETOH?: No Does the pt have substance abuse?: No - Immunizations Immunizations are current?: Yes PD ED PE NORMAL - Vitals Vital signs reviewed: Yes - General General: Alert and oriented X 3, No acute distress, Well developed/nourished - Derm Derm: Normal color, Warm and dry - Extremities Extremities: Other (Significant limb length discrepancy with palpable deformity to the left hip.2+ bilateral DP pulses. Normal capillary refill and movement of the distal extremity) - Neuro Neuro: Alert and oriented X 3, No motor deficit, No sensory deficit - Psych Psych: Normal mood Results - Vitals Vitals: Vital Signs - 24 hr 04/12/21 04/13/21 23:42 00:20 Temperature 36.6 C Heart Rate 65 65 Respiratory 16 16 Rate Blood Pressure 157/92 H 153/91 H O2 Saturation 100 99 Oxygen O2 Source Room air Procedures - Reduction Body part reduced: Left, Hip, prosthetic Fracture or dislocation: Dislocation Anesthesia: Other (propofol) Hip reduction technique: Allis - flex/pull/rotate Reduction aftercare: NV intact, Patient tolerated well, Unable to reduce (Hip appear to be in good alignment and a palpable clunk occurred, consistent with hip reduction, however when she went to x-ray her hip was back out again. We performed procedural sedation a second time after obtaining a second consent form and administered another 70 mg of propofol. Patient tolerat) - Procedural sedation Mallampati classification: I Sedation prep: Informed consent, Time out completed, Last meal (10h ago), PE performed, ASA 3 - severe disease, IV O2 monitor, ET CO2 monitor, RT present Sedation medications: propofol (40 mg then 30 mg additional) Patient status during sedation: Responds to tactile, Vitals remained stable, Maintained airway, Recovered uneventfully Sedation recovery: Recovered uneventfully, Back to baseline Time in sedation (Minutes): 12 PD MEDICAL DECISION MAKING - ED course ED course: 76-year-old woman presented with left hip dislocation, reduced without incident with procedural sedation. Patient is now back to baseline and procedural sedation precautions were given. Patient will follow up with orthopedics. Departure - Departure Disposition: 01 Home, Self Care Clinical Impression: Hip dislocation, left Condition: Good Instructions: Sedation Procedural Comments: You are seen in the emergency department for a left hip dislocation which was reduced in the emergency department. Please Follow-up with your orthopedist for further evaluation. Return the emergency department if you have any new or worsening symptoms or concerns. Discharge Date/Time: 04/13/21 00:20
[2021-04-13 00:21] VITALS: BP 153/91
--- NOTE | 2021-04-13 08:59 | XRAY Report ---
PROCEDURE: Hip w/Pelvis 2-3V LT INDICATIONS: Status post reduction TECHNIQUE: AP pelvis with lateral view(s) of the bilateral hip(s). COMPARISON: 04/12/2021, 04/09/2021, 12/20/2020 FINDINGS: There has been successful interval reduction of the left total hip arthroplasty dislocation seen on t he prior study. No evidence of fracture. Lumbosacral fusion hardware is again noted. IMPRESSION: Successful reduction of left total hip arthroplasty dislocation. No fracture demonstrate d. Reviewed by: Iker Matias MD on 04/13/2021 8:57 AM PDT Approved by: Iker Matias MD on 04/13/2021 8:57 AM PDT Station ID: [id number]
--- NOTE | 2021-04-13 09:01 | XRAY Report ---
PROCEDURE: Hip w/Pelvis 2-3V LT INDICATIONS: shortened and rotated. TECHNIQUE: AP pelvis with lateral view(s) of the bilateral hip(s). COMPARISON: 12/20/2020, 04/09/2021 FINDINGS: There is recurrent superior dislocation of the left total hip arthroplasty femoral component. Acetabu lar cup appears to be in normal position. There is no fracture identified. IMPRESSION: Complete superior left artery plasty dislocation, recurrent. Reviewed by: Iker Matias MD on 04/13/2021 8:59 AM PDT Approved by: Iker Matias MD on 04/13/2021 8:59 AM PDT Station ID: [id number]
== END 2021-04-13 00:20 | disposition home or self-care (01) ==
LOC: EDUNIT# → ED 21:08 → SUPCPDRO 21:08 → ED 04-13 00:20
DX: S73.005A Unspecified dislocation of left hip, initial encounter (principal); X58.XXXA Exposure to other specified factors, initial encounter; I10 Essential (primary) hypertension
CPT/HCPCS: 27266; 94770; 99152; 99283

== ENCOUNTER 2021-06-13 20:29 | Outpatient (CLI) | payer MEDICARE, OTHER | END 2021-06-13 20:30 | disposition critical access hospital (66) | LOC: EMS 20:29 | DX: M25.552 Pain in left hip (principal) | CPT/HCPCS: A0425; A0429 ==

== ENCOUNTER 2021-06-13 20:55 | Emergency (ER) | payer MEDICARE, OTHER ==
[2021-06-13] MEDS ORDERED: SODIUM CHLORIDE 0.9% 1,000 ML IV STA (20:56)
[2021-06-13] MEDS ORDERED: HYDROmorphone 1 MG/ML CARPUJECT IVP STA (20:56)
--- NOTE | 2021-06-13 21:02 | ED Physician Documentation ---
PD HPI LOWER EXT INJURY - Stated complaint Stated Complaint: LEFT HIP POPPED OUT - Chief complaint Chief Complaint: Ext Problem - History obtained from History obtained from: Patient, EMS - History of Present Illness PD HPI LOW EXT INJURY LOCATION: Left, Hip Type of injury: Other (no injury) Where injury occurred: Home Timing - onset: Enter time (20:00), Today Timing - details: Abrupt onset Improved by: Rest Worsened by: Moving Associated symptoms: No: Weakness, Numbness, Tingling, Swelling, Discolored Contributing factors: Prosthetic joint Similar symptoms before: Diagnosis (several previous similar presentations due to recurrent left hip dislocation (although some visits for left hip pain yielded unremarkable left hip xrays)) - Additional information Additional information: presents via EMS for sudden onset left hip pain. Patient says she was awoken from sleep at approximately 5 PM this afternoon due to sudden onset left hip pain which she says is a similar pain she has had with previous ED visits for left hip dislocation. She has had multiple [facility] ED visits this year for left hip pain, some of which were determined to be due to left hip dislocation of her prosthetic left hip, although some visits showed no acute findings (including dislocation, fracture) on the initial plain films (these visits did not result in specific, demonstrable cause of her left hip pain). Patient denies injury, denies fall. Review of Systems Musculoskeletal: reports: Joint pain, Other (has not attempted weight-bearing, as there is severe worsening of left hip pain with any attempts at ROM) Neurologic: denies: Focal weakness, Numbness PD PAST MEDICAL HISTORY - Past Medical History Cardiovascular: Hypertension Respiratory: Pneumonia Neuro: Other Endocrine/Autoimmune: Systemic lupus erythematosus GI: Colon polyps : None HEENT: Chronic vision loss Psych: Claustrophobia Musculoskeletal: Osteoarthritis, Fibromyalgia, Chronic back pain, Other Derm: None - Past Surgical History Past Surgical History: Yes General: Appendectomy, Colonoscopy 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: Hip replacement, 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 HEENT: Tonsil/Adenoidectomy - Present Medications Home Medications: Ambulatory Orders Medication Instructions Recorded Confirmed Propranolol HCl 10 mg PO BID 06/09/20 04/12/21 Carbidopa/Levodopa 2 tab PO BID PRN 06/17/20 04/12/21 [Carbidopa-Levodopa 25-100 Tab] Butalbital/Acetaminophen 1 tab PO PRN PRN 11/22/20 04/12/21 [Butalbital-Acetaminophn 50-325] Irbesartan [Avapro] 75 mg PO DAILY 12/02/20 04/12/21 Rosuvastatin Calcium [Crestor] 0 mg DAILY 12/02/20 04/12/21 Oxycodone HCl/Acetaminophen 1 - 2 each PO Q6H PRN #14 tablet 12/20/20 04/12/21 [Percocet 5-325 mg Tablet] - Allergies Allergies/Adverse Reactions: Allergies Allergy/AdvReac Type Severity Reaction Status Date / Time gabapentin Allergy Respiratory Verified 06/13/21 21:00 - Social History Does the pt smoke?: No Smoking Status: Never smoker Does the pt drink ETOH?: No Does the pt have substance abuse?: No - Immunizations Immunizations are current?: Yes PD ED PE NORMAL - Vitals Vital signs reviewed: Yes - General General: Alert and oriented X 3, No acute distress (NAD at rest (has been medicated with 1mg IV dilaudid), obvious painful distress with any movement involving left hip), Well developed/nourished - Cardiac Cardiac: RRR - Respiratory Respiratory: No respiratory distress, Clear bilaterally - Derm Derm: Normal color PD ED PE EXPANDED - Extremities Extremities: Pedal Pulses Present, Other (LLE shortened, internally rotated. pain exacerbated with any attempts at ROM involving left hip. LTS intact left foot with <2 second capillary refill at toes) Results - Vitals Vitals: Vital Signs - 24 hr 06/13/21 06/13/21 06/13/21 21:00 21:02 21:30 Temperature 36.3 C L Heart Rate 57 L 55 L Respiratory 18 12 Rate Blood Pressure 193/93 H 177/96 H 177/96 H O2 Saturation 100 99 06/13/21 06/13/21 06/13/21 21:32 21:36 21:37 Temperature Heart Rate 54 L 50 L 52 L Respiratory 10 L 10 L 14 Rate Blood Pressure 179/94 H 143/70 H O2 Saturation 82 L 98 100 06/13/21 06/13/21 06/13/21 21:48 22:03 22:17 Temperature Heart Rate 53 L 50 L 52 L Respiratory 11 L 14 11 L Rate Blood Pressure 153/83 H 169/90 H 172/87 H O2 Saturation 98 99 98 06/13/21 06/13/21 06/13/21 22:30 23:00 23:49 Temperature Heart Rate 55 L 56 L 56 L Respiratory 14 24 16 Rate Blood Pressure 115/89 H 175/79 H O2 Saturation 99 99 Oxygen O2 Source Room air - Rads (name of study) left hip xrays Radiology: Prelim report reviewed, See rad report post-reduction left hip xrays Radiology: Prelim report reviewed, See rad report Procedures - Reduction Body part reduced: Left, Hip, prosthetic Fracture or dislocation: Dislocation Anesthesia: Dilaudid (1mg), Other (propofol 20mg) Hip reduction technique: Fulcrum, Other (I attempted reduction using fulcrum technique without success. Dr. 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), PE performed, ASA 3 - severe disease, IV O2 monitor, ET CO2 monitor, RT present Sedation Medications: propofol Mallampati classification: I Patient status during sedation: Responds to tactile (minimal response to tactile including painful stimulus), Vitals remained stable, Maintained airway, Recovered uneventfully, Respiratory depression (hypopnea but did not require reversal agents nor assistance with respirations) Sedation recovery: Recovered uneventfully, Back to baseline Time in sedation (Minutes): 30 PD MEDICAL DECISION MAKING - ED course Complexity details: reviewed old records, reviewed results, re-evaluated patient, considered differential, d/w patient ED course: presents with left hip dislocation with minimal provocation (was turning in bed), multiple previous visits for similar problem. She says she is in the process of being reevaluated by a (new) orthopedic surgeon. She arrives to ED with a hip abduction brace in place except for the plastic medial thigh piece which she says she has at home. I instructed her to reapply the brace as soon as she gets home and to follow up with her orthopedic surgeon for reevaluation and recheck of the braces position and application. Departure - Departure Disposition: 01 Home, Self Care Clinical Impression: Dislocated hip Qualifiers: Encounter type: initial encounter Laterality: left Qualified Code(s): S73.005A - Unspecified dislocation of left hip, initial encounter Condition: Good Instructions: ED Sedation Procedural Discon, ED Hip Replace Dislocation Reduc Comments: Follow up with your orthopedic surgeon as soon as can be arranged. Please reapply your hip brace properly as soon as you get home (we cannot do this in the emergency department, as there is a piece missing which you have indicated you have at home). Discharge Date/Time: 06/14/21 00:01
[2021-06-13] MEDS ORDERED: PROPOFOL 200 MG/20 ML VIAL IVP STA (21:10)
--- NOTE | 2021-06-13 21:25 | XRAY Report ---
PROCEDURE: Hip w/Pelvis 2-3V LT INDICATIONS: hip dislocation TECHNIQUE: AP pelvis with lateral view(s) of the bilateral hip(s). COMPARISON: X-ray left hip, 04/12/2021. FINDINGS: Bones: There is left hip arthroplasty with the prosthesis. The prosthetic femoral head is superiorly dislocated. No fractures. Pelvic ring appears intact. No suspicious bony lesions. There are posts urgical changes in the lower lumbar spine. Soft tissues: The visualized bowel gas pattern is normal. No suspicious soft tissue calcifications. IMPRESSION: Dislocation of the left hip prosthesis. Reviewed by: Andrea Garrison MD on 06/13/2021 9:24 PM PDT Approved by: Andrea Garrison MD on 06/13/2021 9:24 PM PDT Station ID: [id number]
--- NOTE | 2021-06-13 22:12 | XRAY Report ---
PROCEDURE: Hip w/Pelvis 2-3V LT INDICATIONS: post-reduction TECHNIQUE: AP pelvis with lateral view(s) of the bilateral hip(s). COMPARISON: X-ray of the left hip, 06/13/2021. FINDINGS: Bones: The left hip prosthesis dislocation is reduced. There is left hip total arthroplasty with pro sthesis in anatomic alignment. No fractures or dislocations. Pelvic ring appears intact. No suspici ous bony lesions. Postsurgical changes are noted in the lower lumbar spine. Soft tissues: The visualized bowel gas pattern is normal. Atherosclerotic calcifications. IMPRESSION: Successful reduction of left hip dislocation. Reviewed by: Andrea Garrison MD on 06/13/2021 10:11 PM PDT Approved by: Andrea Garrison MD on 06/13/2021 10:11 PM PDT Station ID: [id number]
[2021-06-13] MEDS ORDERED: oxyCODONE 5 MG TABLET PO STA (23:26)
[2021-06-13 23:52] VITALS: BP 175/79
== END 2021-06-14 00:01 | disposition home or self-care (01) ==
LOC: EDUNIT# → ED 20:55
DX: T84.021A Dislocation of internal left hip prosthesis, initial encounter (principal)
CPT/HCPCS: 27257; 36415; 73502; 96374; 99152; 99153; 99283; 99285; A9270; J1170; 94770

== ENCOUNTER 2021-07-15 11:18 | Outpatient (CLI) | payer MEDICARE, OTHER | END 2021-07-15 11:19 | disposition short-term general hospital (02) | LOC: EMS 11:18 | DX: S73.004A Unspecified dislocation of right hip, initial encounter (principal); X58.XXXA Exposure to other specified factors, initial encounter | CPT/HCPCS: A0425; A0429 ==

== ENCOUNTER 2021-08-07 04:45 | Outpatient (CLI) | payer MEDICARE, OTHER | END 2021-08-07 04:46 | disposition critical access hospital (66) | LOC: EMS 04:45 | DX: S73.005A Unspecified dislocation of left hip, initial encounter (principal); X58.XXXA Exposure to other specified factors, initial encounter; Y93.89 Activity, other specified; Y92.009 Unspecified place in unspecified non-institutional (private) residence as the place of occurrence of the external cause | CPT/HCPCS: A0425; A0429 ==

== ENCOUNTER 2021-08-07 05:21 | Emergency (ER) | payer MEDICARE, OTHER ==
[2021-08-07] MEDS ORDERED: PROPOFOL 200 MG/20 ML VIAL IVP STA (05:29)
[2021-08-07] MEDS ORDERED: HYDROmorphone 1 MG/ML CARPUJECT IVP STA (05:29)
--- NOTE | 2021-08-07 05:29 | ED Physician Documentation ---
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 HEENT: Tonsil/Adenoidectomy - Present Medications Home Medications: Ambulatory Orders Medication Instructions Recorded Confirmed Propranolol HCl 10 mg PO BID 06/09/20 04/12/21 Carbidopa/Levodopa 2 tab PO BID PRN 06/17/20 04/12/21 [Carbidopa-Levodopa 25-100 Tab] Butalbital/Acetaminophen 1 tab PO PRN PRN 11/22/20 04/12/21 [Butalbital-Acetaminophn 50-325] Irbesartan [Avapro] 75 mg PO DAILY 12/02/20 04/12/21 Rosuvastatin Calcium [Crestor] 0 mg DAILY 12/02/20 04/12/21 Oxycodone HCl/Acetaminophen 1 - 2 each PO Q6H PRN #14 tablet 12/20/20 04/12/21 [Percocet 5-325 mg Tablet] - Allergies Allergies/Adverse Reactions: Allergies Allergy/AdvReac Type Severity Reaction Status Date / Time gabapentin Allergy Respiratory Verified 08/07/21 05:25 - Social History Does the pt smoke?: No Smoking Status: Never smoker Does the pt drink ETOH?: No Does the pt have substance abuse?: No - Immunizations Immunizations are current?: Yes PD ED PE NORMAL - Vitals Vital signs reviewed: Yes - General General: Alert and oriented X 3, Well developed/nourished, Other (appears uncom fortable at rest but obvious painful distress with any movement of LLE) - Respiratory Respiratory: No respiratory distress, Clear bilaterally - Derm Derm: Normal color - Neuro Neuro: Alert and oriented X 3 PD ED PE EXPANDED - Cardiac Cardiac: Irregularly irregular - Extremities Extremities: Limited ROM (left hip), Pedal Pulses Present, Other (LLE is shortened, externally rotated. 2+ edema LLE, no edema RLE) Results - Vitals Vitals: Vital Signs - 24 hr 08/07/21 08/07/21 08/07/21 05:25 05:46 05:51 Temperature 36.8 C Heart Rate 77 76 74 Respiratory 18 13 15 Rate Blood Pressure 188/100 H 170/103 H 167/89 H O2 Saturation 98 97 98 08/07/21 08/07/21 08/07/21 05:55 06:01 06:05 Temperature Heart Rate 71 72 75 Respiratory 16 15 19 Rate Blood Pressure 151/76 H 148/85 H 194/135 H O2 Saturation 98 97 95 08/07/21 08/07/21 06:21 06:25 Temperature Heart Rate 110 H 74 Respiratory 22 21 Rate Blood Pressure 180/82 H O2 Saturation 96 Oxygen O2 Source Room air Procedures - Reduction Body part reduced: Left, Hip, prosthetic Fracture or dislocation: Dislocation Anesthesia: Dilaudid Hip reduction technique: Fulcrum (this was initially attempted without success), Other (gentle linear traction with leg extended with internal rotation at the foot/ankle resulted in reduction) Reduction aftercare: NV intact, Alignment improved, Patient tolerated well - Procedural sedation Sedation prep: Informed consent, Time out completed, Last meal (10 PM), PE performed, ASA 3 - severe disease, IV O2 monitor, ET CO2 monitor, RT present Sedation Medications: propofol Mallampati classification: II Patient status during sedation: Responds to tactile, Vitals remained stable, Maintained airway, Recovered uneventfully Sedation recovery: Recovered uneventfully, Back to baseline Time in sedation (Minutes): 15 PD MEDICAL DECISION MAKING - ED course Complexity details: reviewed old records, re-evaluated patient, considered differential, d/w patient ED course: presents with dislocation of left hip. Xrays were not performed, as patient has had this many times and her presentation tonight is consistent with her previous such episodes. There was no injury tonight, merely shifted position in chair. Incidental note of LLE edema without RLE edema, but patient says this has been presents for a few months and she says she has had US performed without evidence of DVT. Conscious sedation with propofol (also given 1mg dilaudid) and hip reduced as noted above (procedure note). She rapidly recovered (to baseline) from the sedation and her resolution of pain, normal position and comparative LLE length, and ROM of left hip (this was not tested to FROM, but she was able to move the left hip such that she could get out of the bed to wheelchair (with assistance) all are consistent with reduction Departure - Departure Disposition: 01 Home, Self Care Clinical Impression: Dislocated hip Qualifiers: Encounter type: initial encounter Laterality: left Qualified Code(s): S73.005A - Unspecified dislocation of left hip, initial encounter Condition: Good Instructions: ED Hip Replace Dislocation Reduc Follow-Up: Obdulia Laureano ARNP [Primary Care Provider] - Discharge Date/Time: 08/07/21 07:30
[2021-08-07 06:26] VITALS: BP 180/82
== END 2021-08-07 07:30 | disposition home or self-care (01) ==
LOC: EDUNIT# → SUPCPDRO 05:21 → ED 05:21
DX: T84.021A Dislocation of internal left hip prosthesis, initial encounter (principal); Y83.1 Surgical operation with implant of artificial internal device as the cause of abnormal reaction of the patient, or of later complication, without mention of misadventure at the time of the procedure; Y92.009 Unspecified place in unspecified non-institutional (private) residence as the place of occurrence of the external cause; R60.0 Localized edema; I10 Essential (primary) hypertension; M32.9 Systemic lupus erythematosus, unspecified
CPT/HCPCS: 27265; 99152; 99284; 99285; J1170

== ENCOUNTER 2021-08-21 06:11 | Outpatient (CLI) | payer MEDICARE, OTHER | END 2021-08-21 06:12 | disposition critical access hospital (66) | LOC: EMS 06:11 | DX: M24.452 Recurrent dislocation, left hip (principal) | CPT/HCPCS: A0425; A0427 ==

== ENCOUNTER 2021-08-21 06:31 | Emergency (ER) | payer MEDICARE, OTHER ==
[2021-08-21] MEDS ORDERED: PROPOFOL 200 MG/20 ML VIAL IVP STA (07:17)
--- NOTE | 2021-08-21 07:27 | ED Physician Documentation ---
PD HPI LOWER EXT INJURY - Stated complaint Stated Complaint: L HIP INJ - Chief complaint Chief Complaint: Trauma Ext - History obtained from History obtained from: Patient, EMS - History of Present Illness PD HPI LOW EXT INJURY LOCATION: Left, Hip Type of injury: Twist Where injury occurred: Home Timing - onset: Enter time (329), Today Timing - duration: Hours Timing - details: Abrupt onset, Still present Improved by: Rest, Immobilization Worsened by: Moving, Palpating Associated symptoms: Other (spasming of the LE). No: Weakness, Numbness, Tingling, Swelling, Discolored Contributing factors: Prior ortho surgery, Prosthetic joint Similar symptoms before: Diagnosis (hip dislocation) Recently seen: Emergency Dept - Additional information Additional information: 76-year-old female with a left hip prosthesis that has frequently dislocated has had another dislocation this morning. She states that she got up to go to the bathroom when she came back to get into her bed she got up on a stool next to her bed shifted position and her hip came out of socket. This happened about 3:30 in the morning. She eventually called the ambulance. Review of Systems Constitutional: denies: Fever Nose: denies: Congestion Throat: denies: Sore throat Cardiac: denies: Chest pain / pressure Respiratory: denies: Dyspnea, Cough GI: denies: Vomiting Musculoskeletal: reports: Joint pain, Extremity swelling (has had u/s to the LLE for swelling) Neurologic: denies: Generalized weakness, Focal weakness, Numbness PD PAST MEDICAL HISTORY - Past Medical History Past Medical History: Yes Cardiovascular: Hypertension Respiratory: Pneumonia Neuro: Other Endocrine/Autoimmune: Systemic lupus erythematosus GI: Colon polyps : None HEENT: Chronic vision loss Psych: Claustrophobia Musculoskeletal: Osteoarthritis, Fibromyalgia, Chronic back pain, Other Derm: None Other Past Medical History: 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 HEENT: Tonsil/Adenoidectomy - Present Medications Home Medications: Ambulatory Orders Medication Instructions Recorded Confirmed Propranolol HCl 10 mg PO BID 06/09/20 08/21/21 Carbidopa/Levodopa 2 tab PO BID PRN 06/17/20 08/21/21 [Carbidopa-Levodopa 25-100 Tab] Butalbital/Acetaminophen 1 tab PO PRN PRN 11/22/20 08/21/21 [Butalbital-Acetaminophn 50-325] Irbesartan [Avapro] 75 mg PO DAILY 12/02/20 08/21/21 Rosuvastatin Calcium [Crestor] 5 mg PO DAILY 12/02/20 08/21/21 Oxycodone HCl/Acetaminophen 1 - 2 each PO Q6H PRN #14 tablet 12/20/20 08/21/21 [Percocet 5-325 mg Tablet] Albuterol Sulfate [Proair 2 puffs IH Q4HR PRN 08/21/21 08/21/21 Respiclick] Apixaban [Eliquis] 5 mg PO DAILY 08/21/21 08/21/21 Clopidogrel [Plavix] 75 mg PO DAILY 08/21/21 08/21/21 Ezetimibe [Zetia] 10 mg PO DAILY 08/21/21 08/21/21 Furosemide [Lasix] 20 mg PO DAILY 08/21/21 08/21/21 Pantoprazole Sodium 40 mg PO DAILY 08/21/21 08/21/21 - Allergies Allergies/Adverse Reactions: Allergies Allergy/AdvReac Type Severity Reaction Status Date / Time gabapentin Allergy Respiratory Verified 08/21/21 06:44 - Social History Does the pt smoke?: No Smoking Status: Never smoker Does the pt drink ETOH?: No Does the pt have substance abuse?: No - Immunizations Immunizations are current?: Yes PD ED PE NORMAL - Vitals Vital signs reviewed: Yes (hypertensive ) - General General: Alert and oriented X 3, No acute distress, Well developed/nourished - HEENT HEENT: Atraumatic, PERRL, EOMI - Cardiac Cardiac: RRR, No murmur - Respiratory Respiratory: No respiratory distress, Clear bilaterally (with diminished sounds ) - Abdomen Abdomen: Soft, Non tender, Other (scaphoid abdomen) - Back Back: No CVA TTP, No spinal TTP - Derm Derm: Normal color, Warm and dry, No rash - Extremities Extremities: No deformity, Other (There is shortening and external rotation of the left LE. There is pitting edema to the LLE and not the right. (pre-existing) DP pulse is good. ) - Neuro Neuro: Alert and oriented X 3, mastic floor layer 2-12 intact, No motor deficit, No sensory deficit, Normal speech Eye Opening: Spontaneous Motor: Obeys Commands Verbal: Oriented GCS Score: 15 - Psych Psych: Normal mood, Normal affect Results - Vitals Vitals: Vital Signs - 24 hr 08/21/21 08/21/21 08/21/21 06:35 07:35 07:43 Temperature 36.0 C L Heart Rate 63 50 L 62 Respiratory 20 14 12 Rate Blood Pressure 151/86 H 145/74 H O2 Saturation 96 97 08/21/21 08/21/21 08/21/21 07:45 07:50 07:57 Temperature Heart Rate 55 L 51 L 48 L Respiratory 12 9 L Rate Blood Pressure 131/73 H 93/52 L 105/58 L O2 Saturation 97 96 08/21/21 08/21/21 08/21/21 08:02 08:06 08:11 Temperature Heart Rate 49 L 56 L 51 L Respiratory 18 16 13 Rate Blood Pressure 102/57 L 108/60 121/63 O2 Saturation 96 96 97 08/21/21 08/21/21 08:16 08:33 Temperature Heart Rate 52 L 53 L Respiratory 16 16 Rate Blood Pressure 132/59 H 146/66 H O2 Saturation 97 95 Oxygen O2 Source Room air - Rads (name of study) hip Radiology: Prelim report reviewed (Impression: Total left hip replacement with dislocation), EMP read indepedently, See rad report post reduction Radiology: Prelim report reviewed (Impression: S/p reduction of left hip dislocation.), EMP read indepedently, See rad report Procedures - Reduction Body part reduced: Left, Hip, prosthetic Fracture or dislocation: Dislocation Anesthesia: Other (conscious sedation with propofol) Hip reduction technique: Allis - flex/pull/rotate, Fulcrum Reduction aftercare: NV intact, Xray confirms reduction, Patient tolerated well - Procedural sedation Sedation prep: Informed consent, Time out completed, Last meal (yesterday evening), ASA 3 - severe disease Sedation Medications: propofol (70mg) Mallampati classification: II Patient status during sedation: Unresponsive, Maintained airway, Respiratory depression, Needed resp assistance Sedation recovery: Recovered uneventfully, Back to baseline Time in sedation (Minutes): 15 PD MEDICAL DECISION MAKING - ED course Complexity details: reviewed old records, reviewed results, re-evaluated patient, considered differential, d/w patient ED course: 76-year-old female with multiple prior left hip dislocations with a prosthesis has dislocated her hip again this morning. She is quite cooperative with examination and did well with conscious sedation and reduction. Patient did require some rescue breaths. She had received a dose of 70 mg of propofol.She recovered to baseline was able to get up to go to the bathroom and was discharged to home. She is preparing herself for surgery and she is a bit malnourished. She is working on her nutrition. Departure - Departure Disposition: Home, Self Care Clinical Impression: Dislocated hip Qualifiers: Encounter type: initial encounter Laterality: left Qualified Code(s): S73.005A - Unspecified dislocation of left hip, initial encounter Condition: Stable Instructions: ED Hip Replace Dislocation Reduc Follow-Up: Obdulia Laureano ARNP [Primary Care Provider] - Discharge Date/Time: 08/21/21 09:00
[2021-08-21] MEDS ORDERED: ONDANSETRON 4 MG/2 ML VIAL IVP STA (07:31)
[2021-08-21] MEDS ORDERED: HYDROmorphone 1 MG/ML CARPUJECT IVP STA (07:31)
--- NOTE | 2021-08-21 08:28 | XRAY Report ---
PROCEDURE: Pelvis 1 View INDICATIONS: POST REDUCTION LT HIP TECHNIQUE: 1 view(s) of the pelvis acquired. COMPARISON: 08/21/2021 at 7:04 AM FINDINGS: Bones: Previously seen dislocation has been reduced. The right hip has degenerative changes hardware in the lower lumbar spine is stable. Soft tissues: Visualized bowel gas pattern is normal. No suspicious soft tissue calcifications. IMPRESSION: Status post reduction of left hip dislocation. Reviewed by: Bogdan Huang on 08/21/2021 7:27 AM EMMANUEL Approved by: Bogdan Huang on 08/21/2021 7:27 AM [facility] Station ID: [id number]
--- NOTE | 2021-08-21 08:30 | XRAY Report ---
PROCEDURE: Hip w/Pelvis 2-3V LT INDICATIONS: hip pain TECHNIQUE: 2 views of the left hip. COMPARISON: 06/13/2021 FINDINGS: Bones: Status post total left hip replacement with dislocation. The right hip has degenerative change s. Degenerative changes of the right hip. Soft tissues: The visualized bowel gas pattern is normal. No suspicious soft tissue calcifications. IMPRESSION: Total left hip replacement with dislocation. Reviewed by: Bogdan Huang on 08/21/2021 7:28 AM MARIAN Approved by: Bogdan Huang on 08/21/2021 7:28 AM [facility] Station ID: [id number]
[2021-08-21 08:34] VITALS: BP 146/66
[2021-08-21] MEDS ORDERED: diphenhydrAMINE INJ 50 MG/ML VIAL IM STA (08:40)
== END 2021-08-21 09:00 | disposition home or self-care (01) ==
LOC: EDUNIT# → ED 06:31
DX: T84.021A Dislocation of internal left hip prosthesis, initial encounter (principal); M24.452 Recurrent dislocation, left hip; E46 Unspecified protein-calorie malnutrition; I10 Essential (primary) hypertension
CPT/HCPCS: 27266; 72170; 73502; 96372; 96374; 96375; 99152; 99285; J1170; J1200; 94770

== ENCOUNTER 2021-11-09 18:35 | Outpatient (CLI) | payer MEDICARE, OTHER | END 2021-11-09 18:36 | disposition home or self-care (01) | LOC: LAB.S 18:35 | PROVIDERS: ATTEND Orthopaedic Surgery | DX: Z01.812 Encounter for preprocedural laboratory examination (principal) | CPT/HCPCS: 36415; 82040 ==

== ENCOUNTER 2021-11-13 04:33 | Outpatient (CLI) | payer MEDICARE, OTHER | END 2021-11-13 04:34 | disposition critical access hospital (66) | LOC: EMS 04:33 | DX: M24.452 Recurrent dislocation, left hip (principal) | CPT/HCPCS: A0425; A0427 ==

== ENCOUNTER 2021-11-13 04:54 | Emergency (ER) | payer MEDICARE, OTHER ==
[2021-11-13] MEDS ORDERED: HYDROmorphone 1 MG/ML CARPUJECT IVP STA (05:41)
--- NOTE | 2021-11-13 05:43 | ED Physician Documentation ---
History of Present Illness - Stated complaint Stated Complaint: LEFT HIP DISLOCATION - Chief complaint Chief Complaint: Trauma Ext - History obtained from History obtained from: Patient - History of Present Illness Timing: Prior to arrival Pain level max: 8 (with movement involving left hip) Pain level now: 6 (at rest) - Additonal information Additional information: BIBA. Patient has h/o recurrent left hip prosthetic dislocation and many previous [facility] ED visits for this. They occur with minimal provocation. 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 She says she doesnt even recall making any movement when this happened. 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 HEENT: Tonsil/Adenoidectomy - Present Medications Home Medications: Ambulatory Orders Medication Instructions Recorded Confirmed Propranolol HCl 10 mg PO BID 06/09/20 08/21/21 Carbidopa/Levodopa 2 tab PO BID PRN 06/17/20 08/21/21 [Carbidopa-Levodopa 25-100 Tab] Butalbital/Acetaminophen 1 tab PO PRN PRN 11/22/20 08/21/21 [Butalbital-Acetaminophn 50-325] Irbesartan [Avapro] 75 mg PO DAILY 12/02/20 08/21/21 Rosuvastatin Calcium [Crestor] 5 mg PO DAILY 12/02/20 08/21/21 Oxycodone HCl/Acetaminophen 1 - 2 each PO Q6H PRN #14 tablet 12/20/20 08/21/21 [Percocet 5-325 mg Tablet] Albuterol Sulfate [Proair 2 puffs IH Q4HR PRN 08/21/21 08/21/21 Respiclick] Apixaban [Eliquis] 5 mg PO DAILY 08/21/21 08/21/21 Clopidogrel [Plavix] 75 mg PO DAILY 08/21/21 08/21/21 Ezetimibe [Zetia] 10 mg PO DAILY 08/21/21 08/21/21 Furosemide [Lasix] 20 mg PO DAILY 08/21/21 08/21/21 Pantoprazole Sodium 40 mg PO DAILY 08/21/21 08/21/21 - Allergies Allergies/Adverse Reactions: Allergies Allergy/AdvReac Type Severity Reaction Status Date / Time amitriptyline Allergy Unknown Verified 11/13/21 05:18 beclomethasone Allergy Unknown Verified 11/13/21 05:19 gabapentin Allergy Respiratory Verified 08/21/21 06:44 hydroxychloroquine Allergy Unknown Verified 11/13/21 05:17 meperidine [From Demerol] Allergy Unknown Verified 11/13/21 05:16 [id number] Reductase Allergy Unknown Verified 11/13/21 05:17 Inhibitor tramadol Allergy Unknown Verified 11/13/21 05:18 zolpidem [From Ambien] Allergy Unknown Verified 11/13/21 05:18 - Social History Does the pt smoke?: No Smoking Status: Never smoker Does the pt drink ETOH?: No Does the pt have substance abuse?: No - Immunizations Immunizations are current?: Yes PD ED PE NORMAL - Vitals Vital signs reviewed: Yes - General General: Alert and oriented X 3, No acute distress (at rest she is in NAD), Well developed/nourished - Extremities Extremities: No edema, Other (LLE foreshortened, externally rotated. strong DP pulse) - Neuro Neuro: Alert and oriented X 3, No sensory deficit (LTS intact LLE) Results - Vitals Vitals: Oxygen O2 Source Room air Procedures - Reduction Body part reduced: Left, Hip, prosthetic Fracture or dislocation: Other (dislocation presumed (no xrays performed)) Anesthesia: Dilaudid Hip reduction technique: Other (with knee fully extended, gently increasing linear traction was applied combined with steadily increasing internal rotation of foot/ankle) Reduction aftercare: NV intact, Alignment improved, Patient tolerated well PD MEDICAL DECISION MAKING - ED course Complexity details: reviewed old records, re-evaluated patient, considered differential, d/w patient ED course: Patient has had many previous visits for left hip dislocation (artificial/replacement hip). Tonight she was simply lying in bed when this happened. There was no trauma or injury. Xrays were not performed as there is no reasonable alternative explanation than recurrence of hip dislocation. The last time I reduced this patients hip, it was with relative facility compared to most hip reductions. Given this, I asked patient if she would be comfortable trying reduction with dilaudid for pain but holding off on conscious sedation, and she says she is agreeable to this plan. She is given 1 mg dilaudid IV and I was able to reduce the hip using in-line traction combined with gentle but steadily increasing internal rotation at foot/ankle. There was sensation of [id number] grinding during the procedure followed by reduction as indicated by a distinct popping clunk sensation. This was associated with immediate resolution of patients discomfort and she was moving the left hip with ease and without pain . Held in ED until she was able to procure a ride home. Departure - Departure Disposition: 01 Home, Self Care Clinical Impression: Dislocated hip Qualifiers: Encounter type: initial encounter Laterality: left Qualified Code(s): S73.005A - Unspecified dislocation of left hip, initial encounter Condition: Good Instructions: ED Hip Replace Dislocation Reduc Discharge Date/Time: 11/13/21 08:45
[2021-11-13 07:29] VITALS: BP 122/67
== END 2021-11-13 08:45 | disposition home or self-care (01) ==
LOC: EDUNIT# → ED 04:54
DX: T84.021A Dislocation of internal left hip prosthesis, initial encounter (principal)
CPT/HCPCS: 27266; 93005; 99282; 99283; J1170

== ENCOUNTER 2021-11-23 08:00 | Outpatient (CLI) | payer MEDICARE, OTHER ==
--- NOTE | 2021-11-24 10:12 | XRAY Report ---
PROCEDURE: Shoulder 3 View RT INDICATIONS: PAIN IN RIGHT SHOULDER TECHNIQUE: 3 views of the shoulder were acquired. COMPARISON: None. FINDINGS: Bones: No fractures or dislocations. No suspicious bony lesions. Visualized ribs appear intact. H umeral spur is present. Severe acromioclavicular and moderate glenohumeral degenerative narrowing are present. Soft tissues: No suspicious soft tissue calcifications. IMPRESSION: Arthritic changes at the shoulder as described above. Reviewed by: Katie Hodgson MD on 11/24/2021 10:11 AM PDT Approved by: Katie Hodgson MD on 11/24/2021 10:11 AM PDT Station ID: [id number]
== END 2021-11-23 23:59 | disposition home or self-care (01) ==
LOC: DI.S 08:00
PROVIDERS: ATTEND Physician Assistant
DX: M19.011 Primary osteoarthritis, right shoulder (principal)

== ENCOUNTER 2021-12-14 16:25 | Outpatient (CLI) | payer MEDICARE, OTHER ==
[2021-12-14 20:21] LABS: CREATININE,URINE < 13.0 mg/dL; TOTAL PROTEIN,URINE TIMED 132 mg/dL
[2021-12-14 20:22] LABS: ALBUMIN 2.6 g/dL (3.2-5.5); CALCIUM 9.7 mg/dL (8.5-10.3); CREATININE 0.7 mg/dL (0.4-1.0); POTASSIUM 3.9 mmol/L (3.5-5.0)
== END 2021-12-14 16:26 | disposition home or self-care (01) ==
LOC: LAB.S 16:25
PROVIDERS: ATTEND Student in an Organized Health Care Education/Training Program
DX: N05.9 Unspecified nephritic syndrome with unspecified morphologic changes (principal); R80.9 Proteinuria, unspecified; E78.49 Other hyperlipidemia
CPT/HCPCS: 36415; 80048; 82040; 82570; 84156

== ENCOUNTER 2022-01-12 16:14 | Outpatient (CLI) | payer MEDICARE, OTHER ==
[2022-01-12 20:06] LABS: CHOL/HDL RATIO 3.4 (<4.4); CHOLESTEROL 326 mg/dL; HDL CHOLESTEROL 96 mg/dL; LDL CHOLESTEROL,CALCULATED 179 mg/dL; LDL/HDL RATIO 1.9 (<4.4); TRIGLYCERIDES 254 mg/dL; VLDL CHOLESTEROL 51 mg/dL
== END 2022-01-12 16:15 | disposition home or self-care (01) ==
LOC: LAB.S 16:14
PROVIDERS: ATTEND Student in an Organized Health Care Education/Training Program
DX: E78.49 Other hyperlipidemia (principal)
CPT/HCPCS: 36415; 80061; 83721

== ENCOUNTER 2022-02-04 08:00 | Outpatient (CLI) | payer MEDICARE, OTHER ==
[2022-02-04 16:05] LABS: TOTAL PROTEIN 24HR,URINE 1056 mg/24hr (40-150); TOTAL PROTEIN,URINE TIMED 88 mg/dL; TOTAL VOLUME 24HRS,URINE 1200 mL
== END 2022-02-04 23:59 | disposition home or self-care (01) ==
LOC: LAB.S 08:00
PROVIDERS: ATTEND Internal Medicine Nephrology
DX: N04.9 Nephrotic syndrome with unspecified morphologic changes (principal)
CPT/HCPCS: 81599; 84156

== ENCOUNTER 2022-03-07 08:00 | Outpatient (CLI) | payer MEDICARE, OTHER ==
[2022-03-07 16:11] LABS: TOTAL PROTEIN 24HR,URINE 1901 mg/24hr (40-150); TOTAL PROTEIN,URINE TIMED 181 mg/dL; TOTAL VOLUME 24HRS,URINE 1050 mL
== END 2022-03-07 23:59 | disposition home or self-care (01) ==
LOC: LAB.S 08:00
PROVIDERS: ATTEND Internal Medicine Nephrology
DX: N04.9 Nephrotic syndrome with unspecified morphologic changes (principal)
CPT/HCPCS: 84156

== ENCOUNTER 2022-05-29 09:17 | Outpatient (CLI) | payer MEDICARE, OTHER | END 2022-05-29 09:18 | disposition short-term general hospital (02) | LOC: EMS 09:17 | DX: M24.452 Recurrent dislocation, left hip (principal) | CPT/HCPCS: A0425; A0427 ==

== ENCOUNTER 2022-10-02 22:15 | Outpatient (CLI) | payer MEDICARE, OTHER | END 2022-10-02 22:16 | disposition short-term general hospital (02) | LOC: EMS 22:15 | DX: S73.005A Unspecified dislocation of left hip, initial encounter (principal); X58.XXXA Exposure to other specified factors, initial encounter; Y92.003 Bedroom of unspecified non-institutional (private) residence as the place of occurrence of the external cause | CPT/HCPCS: A0425; A0427 ==

== ENCOUNTER 2022-10-16 03:58 | Outpatient (CLI) | payer MEDICARE, OTHER | END 2022-10-16 03:59 | disposition critical access hospital (66) | LOC: EMS 03:58 | DX: M24.452 Recurrent dislocation, left hip (principal); Z96.642 Presence of left artificial hip joint | CPT/HCPCS: A0425; A0427 ==

== ENCOUNTER 2022-10-16 04:32 | Emergency (ER) | payer MEDICARE, OTHER ==
[2022-10-16] MEDS ORDERED: HYDROmorphone 1 MG/ML CARPUJECT IVP STA ×2 (04:43→07:26)
--- NOTE | 2022-10-16 04:45 | ED Physician Documentation ---
History of Present Illness - Stated complaint Stated Complaint: LEFT HIP DISLOCATION - Chief complaint Chief Complaint: Trauma Ext - History obtained from History obtained from: Patient, EMS - Additonal information Additional information: HPI from patient as well as from EMS. Patient is brought in by EMS for sudden onset of left hip pain. The pain began approximately 1 hour prior to arrival when patient was lying in bed and rolled onto her side. Patient has a left hip prosthesis as well as multiple previous visits to this emergency department for dislocation of the hip prosthesis. Patient indicates that tonight's symptoms are consistent those associated with her previous dislocations. Patient was given 50 mcg of fentanyl intravenously on route by EMS with mild improvement in her discomfort. IV fluids were also given to a total of 200 mL normal saline by the time of ED arrival. 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 HEENT: Tonsil/Adenoidectomy - Present Medications Home Medications: Ambulatory Orders Medication Instructions Recorded Confirmed Propranolol HCl 10 mg PO BID 06/09/20 08/21/21 Carbidopa/Levodopa 2 tab PO BID PRN 06/17/20 08/21/21 [Carbidopa-Levodopa 25-100 Tab] Butalbital/Acetaminophen 1 tab PO PRN PRN 11/22/20 08/21/21 [Butalbital-Acetaminophn 50-325] Irbesartan [Avapro] 75 mg PO DAILY 12/02/20 08/21/21 Rosuvastatin Calcium [Crestor] 5 mg PO DAILY 12/02/20 08/21/21 Oxycodone HCl/Acetaminophen 1 - 2 each PO Q6H PRN #14 tablet 12/20/20 08/21/21 [Percocet 5-325 mg Tablet] Albuterol Sulfate [Proair 2 puffs IH Q4HR PRN 08/21/21 08/21/21 Respiclick] Apixaban [Eliquis] 5 mg PO DAILY 08/21/21 08/21/21 Clopidogrel [Plavix] 75 mg PO DAILY 08/21/21 08/21/21 Ezetimibe [Zetia] 10 mg PO DAILY 08/21/21 08/21/21 Furosemide [Lasix] 20 mg PO DAILY 08/21/21 08/21/21 Pantoprazole Sodium 40 mg PO DAILY 08/21/21 08/21/21 - Allergies Allergies/Adverse Reactions: Allergies Allergy/AdvReac Type Severity Reaction Status Date / Time amitriptyline Allergy Unknown Verified 10/16/22 04:46 beclomethasone Allergy Unknown Verified 10/16/22 04:46 gabapentin Allergy Respiratory Verified 10/16/22 04:46 hydroxychloroquine Allergy Unknown Verified 10/16/22 04:46 meperidine [From Demerol] Allergy Unknown Verified 10/16/22 04:46 Lanzksb-NFZ-NaF Reductase Allergy Unknown Verified 10/16/22 04:46 Inhibitor tramadol Allergy Unknown Verified 10/16/22 04:46 zolpidem [From Ambien] Allergy Unknown Verified 10/16/22 04:46 - Social History Does the pt smoke?: No Smoking Status: Never smoker Does the pt drink ETOH?: No Does the pt have substance abuse?: No - Immunizations Immunizations are current?: Yes PD ED PE NORMAL - Vitals Vital signs reviewed: Yes - General General: Alert and oriented X 3, No acute distress (Patient appears to be in moderate painful distress due to both left hip pain as well as right calf muscle spasm.), Well developed/nourished - HEENT HEENT: Atraumatic - Extremities Extremities: No edema, Other (Left lower extremity is foreshortened compared to the right) PD ED PE EXPANDED - Extremities Extremities: Limited ROM (left hip) Results - Vitals Vitals: Oxygen O2 Source Room air - Rads (name of study) pelvis xray, portable Radiology: EMP read indepedently pelvis xray, portable repeat Radiology: EMP read indepedently pelvis xray, portable post-reduction Radiology: EMP read indepedently Procedures - Reduction Body part reduced: Left, Hip, prosthetic Anesthesia: Dilaudid, Other Hip reduction technique: Allis - flex/pull/rotate, Fulcrum Reduction aftercare: NV intact, Xray confirms reduction, Alignment improved, Patient tolerated well, Other (After a few unsuccessful attempts by me to reduce the hip using the above techniques, Dr. Lazo graciously attempted to reduce the hip and was successful using Allis technique.) - Procedural sedation Sedation prep: Informed consent, Time out completed, ASA 3 - severe disease, IV O2 monitor, ET CO2 monitor, RT present Sedation Medications: propofol Mallampati classification: III Patient status during sedation: Responds to tactile, Vitals remained stable, Maintained airway, Recovered uneventfully Sedation recovery: Slow recovery, Back to baseline Time in sedation (Minutes): 30 PD Medical Decision Making - ED course Complexity details: considered differential, d/w patient ED course: Patient presents with left hip dislocation of her prosthetic hip, Occurred with minimal provocation (patient simply turned over while lying in bed). Patient is well-known to this emergency department for recurrent visits for this same problem. When I last reduce this patient's hip myself, I was able to do so with a single milligram of intravenous Dilaudid. I also note that her most recent visit to this emergency department for the same problem, the on-duty emergency physician also was able to reduce the hip using only single dose IV Dilaudid. Thus, on matias's presentation, initially I attempted reduction with the 1 mg IV Dilaudid. Unfortunately, this was unsuccessful and she had significant discomfort with even mild manipulation of the left lower extremity. I then discussed with the patient that we should proceed with conscious sedation, and she is agreeable to this. Please refer to the above notes regarding the conscious sedation as well as the reduction of the left hip, which was eventually successful. She is observed in the emergency department until the effects of the propofol had adequately worn off. On this last reevaluation prior to discharge, she is awake, alert, in NAD.She says she does not recall the procedure, and feels much better. Return precautions discussed, I recommended that she follow-up with her orthopedic surgical group, next available appointment for reevaluation. Departure - Departure Disposition: 01 Home, Self Care Clinical Impression: Hip dislocation, left Qualifiers: Encounter type: initial encounter Qualified Code(s): S73.005A - Unspecified dislocation of left hip, initial encounter Condition: Good Instructions: ED Sedation Procedural Discon, ED Hip Replace Dislocation Reduc Comments: When he first arrived to the emergency department, your left hip replacement was once again dislocated (out of socket). You are given medications to help with the pain as well as to make you drowsy for reduction of the hip. The hip dislocation was successfully reduced in the emergency department. Follow-up with the orthopedic surgical group; call when the office is next open to arrange for next available appointment. Discharge Date/Time: 10/16/22 11:27
[2022-10-16] MEDS ORDERED: PROPOFOL 200 MG/20 ML VIAL IVP STA (07:26)
--- NOTE | 2022-10-16 08:32 | XRAY Report ---
PROCEDURE: Pelvis 1 View INDICATIONS: left hip pain, recurrent dislocations TECHNIQUE: 2 view(s) of the pelvis acquired. COMPARISON: X-ray pelvis, 01/30/2022. X-ray left hip, 01/30/2022. FINDINGS: Bones: There is left hip arthroplasty. There is superior dislocation of the prosthetic femoral head. No fractures. Post surgical and degenerative changes in the lower lumbar spine. No suspicious bony lesions. Soft tissues: Visualized bowel gas pattern is normal. No suspicious soft tissue calcifications. Sk in gonsalo are noted over the left side. IMPRESSION: Left hip prosthesis dislocation. No significant discrepancy with the preliminary interpretation. Reviewed by: Andrea Garrison MD on 10/16/2022 8:31 AM PST Approved by: Andrea Garrison MD on 10/16/2022 8:31 AM PST Station ID: [id number]
--- NOTE | 2022-10-16 10:12 | XRAY Report ---
PROCEDURE: Pelvis 1 View INDICATIONS: post reduction left hip TECHNIQUE: 1 view(s) of the pelvis acquired. COMPARISON: Prior images on 10/16/2022 FINDINGS: Bones: Left posterior hardware is seen, which is now appropriately relocated. Right hip degenerative change can be seen. Lumbosacral fixation hardware is seen. Soft tissues: Postoperative change and soft tissue swelling can be seen. IMPRESSION: Left prosthetic hip relocation. Reviewed by: Chuck Vargas MD on 10/16/2022 9:11 AM [facility] Approved by: Chuck Vargas MD on 10/16/2022 9:11 AM [facility] Station ID: [id number]
--- NOTE | 2022-10-16 10:13 | XRAY Report ---
PROCEDURE: Pelvis 1 View INDICATIONS: POST REDUCTION #1 TECHNIQUE: 1 view(s) of the pelvis acquired. COMPARISON: 10/16/2022 images FINDINGS: Bones: There is a left hip prosthesis, which is dislocated superiorly. No fractures are seen. Right hip degenerative change is seen. Lumbosacral fixation hardware can be seen. Soft tissues: Visualized bowel gas pattern is normal. No suspicious soft tissue calcifications. At herosclerotic calcification is seen. Soft tissue postoperative change and swelling can be seen. IMPRESSION: Left prosthetic hip superior dislocation. Reviewed by: Chuck Vargas MD on 10/16/2022 9:12 AM [facility] Approved by: Chuck Vargas MD on 10/16/2022 9:12 AM [facility] Station ID: [id number]
[2022-10-16 10:45] VITALS: BP 146/66
== END 2022-10-16 11:27 | disposition home or self-care (01) ==
LOC: EDUNIT# → ED 04:32
DX: T84.021A Dislocation of internal left hip prosthesis, initial encounter (principal); I10 Essential (primary) hypertension; Z79.899 Other long term (current) drug therapy; Z79.02 Long term (current) use of antithrombotics/antiplatelets; Z79.01 Long term (current) use of anticoagulants
CPT/HCPCS: 27265; 72170; 96374; 99152; 99153; 99284; 99285; J1170; 94770

== ENCOUNTER 2022-10-17 06:48 | Outpatient (CLI) | payer MEDICARE, OTHER | END 2022-10-17 06:49 | disposition short-term general hospital (02) | LOC: EMS 06:48 | DX: M24.452 Recurrent dislocation, left hip (principal); Z96.642 Presence of left artificial hip joint | CPT/HCPCS: A0425; A0429 ==

== ENCOUNTER 2022-10-18 09:34 | Outpatient (CLI) | payer MEDICARE, OTHER | END 2022-10-18 23:59 | disposition critical access hospital (66) | LOC: EMS 09:34 | DX: T84.021A Dislocation of internal left hip prosthesis, initial encounter (principal); M25.552 Pain in left hip | CPT/HCPCS: A0425; A0429 ==

== ENCOUNTER 2022-10-18 10:11 | Emergency (ER) | payer MEDICARE, OTHER ==
[2022-10-18] MEDS ORDERED: PROPOFOL 200 MG/20 ML VIAL IVP STA (11:34)
[2022-10-18] MEDS ORDERED: SODIUM CHLORIDE 0.9% 1,000 ML IV STA (11:42)
--- NOTE | 2022-10-18 11:43 | XRAY Report ---
PROCEDURE: Hip w/Pelvis 2-3V LT INDICATIONS: L hip pain TECHNIQUE: AP pelvis with lateral view(s) of the left hip(s). COMPARISON: 10/16/2022 FINDINGS: Bones: Left hip arthroplasty is now disarticulated with superior displacement of the femoral componen t. No evidence of fracture. Overlying skin gonsalo present. The lower lumbar spine discectomy and fus ion with instrumentation Soft tissues: The visualized bowel gas pattern is normal. No suspicious soft tissue calcifications. IMPRESSION: Disarticulated left hip arthroplasty Reviewed by: Oli Ortiz MD on 10/18/2022 10:42 AM [facility] Approved by: Oli Ortiz MD on 10/18/2022 10:42 AM [facility] Station ID: [id number]
[2022-10-18 12:02] VITALS: BP 137/80
--- NOTE | 2022-10-18 12:03 | ED Physician Documentation ---
History of Present Illness - Stated complaint Stated Complaint: DISLOCATED HIP - Chief complaint Chief Complaint: Ext Problem - History obtained from History obtained from: Patient - History of Present Illness Timing: Today Pain level max: 8 Pain level now: 8 - Additonal information Additional information: Patient is a 77-year-old female who presents to the emergency department with a left hip dislocation. She states that she was here 2 days ago for same. Had surgery at [facility] in [place] 2 weeks ago for same. States it "just went out" today. Worse with movement, better with rest. Review of Systems Constitutional: denies: Fever, Chills GI: denies: Nausea, Vomiting, Diarrhea Skin: denies: Rash Musculoskeletal: denies: Neck pain, Back pain Neurologic: denies: Headache PD PAST MEDICAL HISTORY - Past Medical History Past Medical History: Yes Cardiovascular: Hypertension Respiratory: Pneumonia Neuro: Other Endocrine/Autoimmune: Systemic lupus erythematosus GI: Colon polyps : None HEENT: Chronic vision loss Psych: Claustrophobia Musculoskeletal: Osteoarthritis, Fibromyalgia, Chronic back pain, Other Derm: None - Past Surgical History Past Surgical History: Yes General: Appendectomy, Colonoscopy 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: Hip replacement, 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 HEENT: Tonsil/Adenoidectomy - Present Medications Home Medications: Ambulatory Orders Medication Instructions Recorded Confirmed Propranolol HCl 10 mg PO BID 06/09/20 08/21/21 Carbidopa/Levodopa 2 tab PO BID PRN 06/17/20 08/21/21 [Carbidopa-Levodopa 25-100 Tab] Butalbital/Acetaminophen 1 tab PO PRN PRN 11/22/20 08/21/21 [Butalbital-Acetaminophn 50-325] Irbesartan [Avapro] 75 mg PO DAILY 12/02/20 08/21/21 Rosuvastatin Calcium [Crestor] 5 mg PO DAILY 12/02/20 08/21/21 Oxycodone HCl/Acetaminophen 1 - 2 each PO Q6H PRN #14 tablet 12/20/20 08/21/21 [Percocet 5-325 mg Tablet] Albuterol Sulfate [Proair 2 puffs IH Q4HR PRN 08/21/21 08/21/21 Respiclick] Apixaban [Eliquis] 5 mg PO DAILY 08/21/21 08/21/21 Clopidogrel [Plavix] 75 mg PO DAILY 08/21/21 08/21/21 Ezetimibe [Zetia] 10 mg PO DAILY 08/21/21 08/21/21 Furosemide [Lasix] 20 mg PO DAILY 08/21/21 08/21/21 Pantoprazole Sodium 40 mg PO DAILY 08/21/21 08/21/21 - Allergies Allergies/Adverse Reactions: Allergies Allergy/AdvReac Type Severity Reaction Status Date / Time amitriptyline Allergy Unknown Verified 10/18/22 10:24 beclomethasone Allergy Unknown Verified 10/18/22 10:24 gabapentin Allergy Respiratory Verified 10/18/22 10:24 hydroxychloroquine Allergy Unknown Verified 10/18/22 10:24 meperidine [From Demerol] Allergy Unknown Verified 10/18/22 10:24 [id number] Reductase Allergy Unknown Verified 10/18/22 10:24 Inhibitor tramadol Allergy Unknown Verified 10/18/22 10:24 zolpidem [From Ambien] Allergy Unknown Verified 10/18/22 10:24 - Social History Does the pt smoke?: No Smoking Status: Never smoker Does the pt drink ETOH?: No Does the pt have substance abuse?: No - Immunizations Immunizations are current?: Yes PD ED PE NORMAL - Vitals Vital signs reviewed: Yes - General General: Alert and oriented X 3, No acute distress - HEENT HEENT: Moist mucous membranes - Neck Neck: Supple, no meningeal sign - Cardiac Cardiac: RRR - Respiratory Respiratory: No respiratory distress, Clear bilaterally - Derm Derm: Warm and dry - Extremities Extremities: Other (Deformity noted to the left hip. Shortened left leg. Neurovascular intact) - Neuro Neuro: Alert and oriented X 3 - Psych Psych: Normal mood, Normal affect Results - Vitals Vitals: Vital Signs - 24 hr 10/18/22 10/18/22 10/18/22 10:20 11:53 11:55 Temperature 36.9 C Heart Rate 76 68 66 Respiratory 16 16 7 L Rate Blood Pressure 182/91 H 211/100 H 181/96 H O2 Saturation 99 98 98 10/18/22 10/18/22 10/18/22 12:01 12:03 12:48 Temperature Heart Rate 69 80 78 Respiratory 16 16 Rate Blood Pressure 137/80 H O2 Saturation 98 98 Oxygen O2 Source Room air - Rads (name of study) Left hip x-ray Radiology: Final report received, See rad report (Superior dislocated left hip prosthesis) Left hip x-ray postreduction Radiology: Final report received, See rad report Procedures - Reduction Body part reduced: Left, Hip, prosthetic Anesthesia: Other (Procedural sedation with propofol) Hip reduction technique: Other (Traction applied, internal and external rotation applied.) Reduction aftercare: NV intact, Xray confirms reduction, Alignment improved, Other (Placed in a knee immobilizer) - Procedural sedation Sedation prep: Informed consent, ASA 2 - mild disease Sedation Medications: propofol Mallampati classification: II Patient status during sedation: Responds to tactile, Vitals remained stable, Maintained airway, Recovered uneventfully Sedation recovery: Recovered uneventfully Time in sedation (Minutes): 15 PD Medical Decision Making - ED course Complexity details: reviewed results, re-evaluated patient, considered differential, d/w patient ED course: 77-year-old female with 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 This was reduced under propofol sedation. No complications. Placed in a knee immobilizer. She follows up with her orthopedist tomorrow. Patient counseled regarding signs and symptoms for which I believe and urgent re-evaluation would be necessary. Patient with good understanding of and agreement to plan and is comfortable going home at this time This document was made in part using voice recognition software. While efforts are made to proofread this document, sound alike and grammatical errors may occur. Departure - Departure Disposition: 01 Home, Self Care Clinical Impression: Hip dislocation, left Qualifiers: Encounter type: initial encounter Qualified Code(s): S73.005A - Unspecified dislocation of left hip, initial encounter Condition: Good Instructions: ED Hip Replace Dislocation Reduc Follow-Up: Obdulia Laureano ARNP [Primary Care Provider] - Comments: Please follow-up with your orthopedist tomorrow as scheduled. Please stay in the knee immobilizer until that time. Please return if you worsen. Please make sure you had a pillow in between your legs especially when you are lying in bed or sleeping at home. Please also make sure that you are not pivoting with your left leg planted on the ground as this can cause excess stress that could dislocate your hip as well. Discharge Date/Time: 10/18/22 13:43
--- NOTE | 2022-10-18 13:06 | XRAY Report ---
PROCEDURE: Hip w/Pelvis 1V LT INDICATIONS: post reduction TECHNIQUE: AP pelvis with lateral view(s) of the left hip(s). COMPARISON: 10/18/2022 FINDINGS: Bones: Total left hip hip arthroplasty now shows appropriate articulation. Lower lumbar spine decompr ession with sandra and screw instrumentation. Overlying skin gonsalo. Moderate right hip osteoarthritis. Generalized decreased osseous mineralization present. Soft tissues: The visualized bowel gas pattern is normal. No suspicious soft tissue calcifications. IMPRESSION: Total left hip arthroplasty with appropriate articulation Reviewed by: Oli Ortiz MD on 10/18/2022 12:05 PM [facility] Approved by: Oli Ortiz MD on 10/18/2022 12:05 PM [facility] Station ID: [id number]
== END 2022-10-18 13:43 | disposition home or self-care (01) ==
LOC: EDUNIT# → ED 10:11
DX: T84.021A Dislocation of internal left hip prosthesis, initial encounter (principal)
CPT/HCPCS: 27265; 94770; 99152; 99283

== ENCOUNTER 2022-10-19 23:44 | Outpatient (CLI) | payer MEDICARE, OTHER | END 2022-10-19 23:59 | disposition critical access hospital (66) | LOC: EMS 23:44 | DX: M24.459 Recurrent dislocation, unspecified hip (principal); M25.559 Pain in unspecified hip | CPT/HCPCS: A0425; A0429 ==

== ENCOUNTER 2022-10-20 00:20 | Emergency (ER) | payer MEDICARE, OTHER ==
[2022-10-20] MEDS ORDERED: PROPOFOL 200 MG/20 ML VIAL IVP STA ×3 (00:42→03:30)
[2022-10-20] MEDS ORDERED: oxyCODONE 5 MG TABLET PO STA (01:35)
--- NOTE | 2022-10-20 01:40 | ED Physician Documentation ---
PD HPI LOWER EXT INJURY - Stated complaint Stated Complaint: L HIP DISLOCATION - Chief complaint Chief Complaint: Ext Problem - History obtained from History obtained from: Patient, Other (Outside records) - Additional information Additional information: Patient is a 77-year-old with left hip pain. She has a history of recurrent and frequent left hip dislocations. This is her fourth ED visit this week for the same. She has been here twice and to [facility] once all requiring procedural sedation and closed reduction. She saw her orthopedic doctor today. Unfortunately did not seem that there were many options left for the patient and she is resistant to try any of the options presented to her. Patient reports her hip went out at home while she was laying in bed. She denies doing any pa rticular movements. Reviewed Dr. Almodovar's note from 10/19/22 through [facility]. IMPRESSION: 77 y.o. female 2.5 weeks s/p above, with recurrent chronic instability and absent abductors. We again had a long discussion about this very complex problem. Typically, the strongest locking mechanisms we have against instability and in the setting of abductor insufficiency is a constrained liner but she failed this after 30 days. Revising this to another constrained liner, unless we were to change the vendor and cement a liner in, is unclear in terms of how long it would help her, and as they understand, every dislocation would almost certainly require a repeat open reduction. They elected for the traditional liner as this allows them to reduce her hip in a closed fashion although her repeat dislocations over the last few weeks have caused her significant pain and lack of quality of life We also discussed a Girdlestone hip resection procedure which would leave her ambulatory capacity diminished, and be challenging for her to continue to live independently, although would likely alleviate some of the pain she had from her left hip dislocations. We discussed other alternatives such as a gluteus jennie transfer although I am not particularly familiar with this procedure, nor is it clear whether this would even work given her chronic spine pathology and potential lack of innervation to the gluteus jennie itself. Her abductors were completely deficient during surgery and likely will continue to be deficient due to denervation, chronic dislocation, and from the index surgery likely leaving her limb shortened and with reduced offset. This is a challenging issue without any good options. I did recommend they seek additional professional opinions, as moving towards a Girdlestone resection procedure would be a drastic change in quality of life and function and I would recommend they seek additional opinions to get as much information as possible. They were amenable to this DISCUSSION/PLAN: All clinical and radiographic findings were discussed with the patient. PLAN: - Activity: recommend brace use despite its discomfort and noncompliance - lifelong hip precautions - referral to Orthopedics for second opinion - follow up as scheduled Review of Systems Constitutional: denies: Fever Cardiac: denies: Chest pain / pressure Respiratory: denies: Dyspnea GI: denies: Abdominal Pain Musculoskeletal: reports: Joint pain Neurologic: denies: Headache PD PAST MEDICAL HISTORY - Past Medical History Past Medical History: Yes Cardiovascular: Hypertension Respiratory: Pneumonia Neuro: Other Endocrine/Autoimmune: Systemic lupus erythematosus GI: Colon polyps : None HEENT: Chronic vision loss Psych: Claustrophobia Musculoskeletal: Osteoarthritis, Fibromyalgia, Chronic back pain, Other Derm: None - Past Surgical History Past Surgical History: Yes General: Appendectomy, Colonoscopy Ortho: Hip replacement, 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 HEENT: Tonsil/Adenoidectomy - Present Medications Home Medications: Ambulatory Orders Medication Instructions Recorded Confirmed Propranolol HCl 10 mg PO BID 06/09/20 08/21/21 Carbidopa/Levodopa 2 tab PO BID PRN 06/17/20 08/21/21 [Carbidopa-Levodopa 25-100 Tab] Butalbital/Acetaminophen 1 tab PO PRN PRN 11/22/20 08/21/21 [Butalbital-Acetaminophn 50-325] Irbesartan [Avapro] 75 mg PO DAILY 12/02/20 08/21/21 Rosuvastatin Calcium [Crestor] 5 mg PO DAILY 12/02/20 08/21/21 Oxycodone HCl/Acetaminophen 1 - 2 each PO Q6H PRN #14 tablet 12/20/20 08/21/21 [Percocet 5-325 mg Tablet] Albuterol Sulfate [Proair 2 puffs IH Q4HR PRN 08/21/21 08/21/21 Respiclick] Apixaban [Eliquis] 5 mg PO DAILY 08/21/21 08/21/21 Clopidogrel [Plavix] 75 mg PO DAILY 08/21/21 08/21/21 Ezetimibe [Zetia] 10 mg PO DAILY 08/21/21 08/21/21 Furosemide [Lasix] 20 mg PO DAILY 08/21/21 08/21/21 Pantoprazole Sodium 40 mg PO DAILY 08/21/21 08/21/21 - Allergies Allergies/Adverse Reactions: Allergies Allergy/AdvReac Type Severity Reaction Status Date / Time amitriptyline Allergy Unknown Verified 10/20/22 00:32 beclomethasone Allergy Unknown Verified 10/20/22 00:32 gabapentin Allergy Respiratory Verified 10/20/22 00:32 hydroxychloroquine Allergy Unknown Verified 10/20/22 00:32 meperidine [From Demerol] Allergy Unknown Verified 10/20/22 00:32 Wtasieo-GAL-QrI Reductase Allergy Unknown Verified 10/20/22 00:32 Inhibitor tramadol Allergy Unknown Verified 10/20/22 00:32 zolpidem [From Ambien] Allergy Unknown Verified 10/20/22 00:32 - Social History Does the pt smoke?: No Smoking Status: Never smoker Does the pt drink ETOH?: No Does the pt have substance abuse?: No - Immunizations Immunizations are current?: Yes - POLST Patient has POLST: No PD ED PE NORMAL - General General: Alert and oriented X 3, No acute distress, Well developed/nourished - HEENT HEENT: Atraumatic - Neck Neck: Supple, no meningeal sign - Cardiac Cardiac: RRR - Respiratory Respiratory: No respiratory distress, Clear bilaterally - Abdomen Abdomen: Soft, Non tender - Extremities Extremities: Other (Deformity to left hip, leg is shortened, rotated; No tenderness over femur; Pedal pulses intact; Normal sensation; well Healing incision to left hip). No: No deformity Results - Vitals Vitals: Vital Signs - 24 hr 10/20/22 10/20/22 10/20/22 00:33 01:09 01:18 Temperature 37.1 C Heart Rate 60 77 58 L Respiratory 20 25 H 25 H Rate Blood Pressure 192/96 H 176/89 H 176/89 H O2 Saturation 98 98 100 10/20/22 10/20/22 10/20/22 01:21 01:27 01:34 Temperature Heart Rate 69 53 L 76 Respiratory 20 16 20 Rate Blood Pressure 162/102 H 131/66 H 152/78 H O2 Saturation 95 98 96 10/20/22 10/20/22 10/20/22 03:27 03:33 03:35 Temperature 36.9 C Heart Rate 53 L 53 L 53 L Respiratory 16 20 20 Rate Blood Pressure 166/82 H 172/72 H 173/72 H O2 Saturation 98 100 100 10/20/22 10/20/22 03:40 03:45 Temperature Heart Rate 49 L 52 L Respiratory 14 13 Rate Blood Pressure 129/58 L 133/62 H O2 Saturation 100 100 Oxygen O2 Source Room air Procedures - Reduction Body part reduced: Left, Hip, prosthetic Fracture or dislocation: Dislocation Anesthesia: Other (Propofol) Hip reduction technique: Allis - flex/pull/rotate Reduction aftercare: NV intact, Xray confirms reduction, Alignment improved, Patient tolerated well - Procedural sedation Sedation prep: Informed consent, Time out completed, Last meal, PE performed, ASA 2 - mild disease, IV O2 monitor, ET CO2 monitor, RT present Sedation Medications: propofol Mallampati classification: II Patient status during sedation: Responds to tactile, Vitals remained stable, Maintained airway, Recovered uneventfully Sedation recovery: Recovered uneventfully Time in sedation (Minutes): 15 PD Medical Decision Making - ED course Complexity details: reviewed results, re-evaluated patient, d/w patient ED course: Patient presented for evaluation of recurrent left hip dislocation. This is her fourth visit to ED's this week. She has obvious deformity on exam and initial x-ray which I reviewed confirms dislocation. I consented the patient for sedation and reduction. Reduction was successful but just prior to discharge while patient was getting dressed she redislocated and required a second sedation and reduction which was also successful. I also spoke with her orthopedic surgeon. I reviewed reiterated to the patient that she should wear her abductor brace but she gives many excuses and reasons as to why she does not want to Including but has not helped her in the past. I stated that it could reduce the frequency of her dislocations and that this is her best option at this point without a more invasive procedure.Patient's RN was present during this conversation as well.Patient recovered uneventfully from her sedations and was discharged home. Patient counseled on concerning symptoms to return for. 0257 - Patient was dressed and sitting waiting for her ride when her hip redislocated. I attempted a closed reduction after administering IV pain meds but patient was unable to tolerate.Therefore a second sedation was performed with propofol (50 mg) And using the Allis technique. Postreduction films were reviewed. Reduction was again successful and patient remains neurovascularly intact. Time spent in that sedation was 15 minutes. She recovered from her sedation uneventfully. [id number] - I spoke to Dr. Almodovar, patient's orthopedic surgeon at [facility]. I reviewed the patient's presentation and ED course today with 2 dislocations and successful reductions. He unfortunately states he does not have much more to offer the patient and again stresses that she should wear her abductor brace that she has at home. He is aware that patient is very resistant to this. We discussed that patient may need to strongly consider the alternative option that he had given the patient which is a Girdlestone hip resection And that she should also seek a second opinion through the [facility] for alternate options. Departure - Departure Clinical Impression: Recurrent dislocation, left hip Condition: Stable Instructions: ED Sedation Procedural Discon, ED Hip Replace Dislocation Reduc Follow-Up: LUCIANO ALMODOVAR MD [Physician No Access] - Comments: Your hip was dislocated and we reduced it after giving you medicine to sedate you. I would highly encourage you to wear the abductor brace recommended by your orthopedic surgeon as there Seems to be very limited options and measures that you can take to help prevent your hip from dislocating.
--- NOTE | 2022-10-20 01:52 | XRAY Report ---
PROCEDURE: Hip w/Pelvis 2-3V LT INDICATIONS: recurrent dislocations TECHNIQUE: AP pelvis with lateral view of the left hip. COMPARISON: Hip and pelvic x-ray studies dated 10/18/2022, 10/16/2022. FINDINGS: Bones: There is a recurrent superolateral dislocation of the patient's left hip prosthesis. No defini te acute fracture identified. Pelvic ring appears intact. Postsurgical changes redemonstrated within the lower lumbar spine. No suspicious bony lesions. Soft tissues: The visualized bowel gas pattern is normal. Particular calcifications along the left h ip likely reflect heterotopic ossification as well as vascular calcification. IMPRESSION: 1. Recurrent dislocation of left hip prosthesis. Reviewed by: Bentley Banegas MD on 10/20/2022 1:51 AM PST Approved by: Bentley Banegas MD on 10/20/2022 1:51 AM PST Station ID: [id number]
--- NOTE | 2022-10-20 01:54 | XRAY Report ---
PROCEDURE: Hip w/Pelvis 1V LT INDICATIONS: post reduction TECHNIQUE: AP pelvis acquired. COMPARISON: Previous studies of the pelvis and hips dated 10/20/2022, 10/18/2022, 10/16/2022. FINDINGS: Bones: There is interval reduction of the previously dislocated left hip prosthesis. Prosthetic comp onents appear congruent. No acute fractures identified. Pelvic ring appears intact. Postsurgical ehsan nges redemonstrated in the lower lumbar spine. There is moderate axial joint space narrowing in the r ight hip. No suspicious bony lesions. Soft tissues: The visualized bowel gas pattern is normal. No suspicious soft tissue calcifications. IMPRESSION: 1. Interval reduction of previously dislocated left hip prosthesis. Reviewed by: Bentley Banegas MD on 10/20/2022 1:53 AM PST Approved by: Bentley Banegas MD on 10/20/2022 1:53 AM PST Station ID: [id number]
[2022-10-20] MEDS ORDERED: HYDROmorphone 1 MG/ML CARPUJECT IVP STA (03:05)
[2022-10-20 04:24] VITALS: BP 164/75
--- NOTE | 2022-10-20 09:28 | XRAY Report ---
PROCEDURE: Hip w/Pelvis 2-3V LT INDICATIONS: redislocated TECHNIQUE: AP pelvis with lateral view(s) of the left hip(s). COMPARISON: Earlier on the same date FINDINGS: Bones: Continued superior lateral dislocation of left hip arthroplasty. No fracture is identified. Pe lvic ring appears intact. No suspicious bony lesions. Soft tissues: The visualized bowel gas pattern is normal. No suspicious soft tissue calcifications. IMPRESSION: Continued superior lateral dislocation of total left hip arthroplasty. Findings are concordant with preliminary interpretation provided by [facility]. Reviewed by: Paul Sequeira MD on 10/20/2022 9:26 AM PST Approved by: Paul Sequeira MD on 10/20/2022 9:26 AM PST Station ID: [id number]
--- NOTE | 2022-10-20 09:42 | XRAY Report ---
PROCEDURE: Hip w/Pelvis 1V LT INDICATIONS: 2nd reduction TECHNIQUE: AP pelvis with lateral view(s) of the left hip(s). COMPARISON: Prior studies from the same date FINDINGS: Bones: Satisfactory reduction of total left hip arthroplasty. No fracture or dislocation seen. Pelvic ring appears intact. No suspicious bony lesions. Soft tissues: The visualized bowel gas pattern is normal. No suspicious soft tissue calcifications. IMPRESSION: Successful reduction of dislocated total left hip arthroplasty. Findings are concordant with preliminary interpretation provided by [facility]. Reviewed by: Paul Sequeira MD on 10/20/2022 9:41 AM PST Approved by: Paul Sequeira MD on 10/20/2022 9:41 AM PST Station ID: [id number]
== END 2022-10-20 04:25 | disposition home or self-care (01) ==
LOC: EDUNIT# → ED 00:20
DX: M24.452 Recurrent dislocation, left hip (principal)
CPT/HCPCS: 27265; 73501; 73502; 96374; 99152; 99284; A9270; J1170

== ENCOUNTER 2022-10-25 11:58 | Inpatient (IN) | payer MEDICARE, OTHER ==
[2022-10-25] MEDS ORDERED: SODIUM CHLORIDE 0.9% 1,000 ML IV STA (12:09)
[2022-10-25] MEDS ORDERED: HYDROmorphone 0.5 MG/0.5 ML SYRINGE IVP STA ×2 (12:11→14:55)
--- NOTE | 2022-10-25 12:13 | ED Physician Documentation ---
History of Present Illness - Stated complaint Stated Complaint: HIP DISLOCATION/FALL - History obtained from History obtained from: Patient, EMS - Additonal information Additional information: The patient comes to the emergency department via EMS for chief complaint of ground-level fall and left hip pain. The patient has a history of prosthetic hip placement and has previously been patient of Dr. Reyes, though has had a couple of revisions at [facility] in the past few months. She has been seen here numerous times for hip dislocations since her prosthesis was placed. The patient's family normally is able to get the hip back in at home but was unable to do so today. The patient complains of left hip pain but that is all. She denies any spinal pain. No rib pain. No chest or abdominal pain. No numbness or tingling in her left lower extremity. She denies hitting her head during the fall. She states she was getting up from the toilet and put her leg up the wrong way and immediately felt it dislocate. 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 HEENT: Tonsil/Adenoidectomy - Present Medications Home Medications: Ambulatory Orders Medication Instructions Recorded Confirmed Carbidopa/Levodopa 1 tab PO 5XD PRN 06/17/20 10/26/22 [Carbidopa-Levodopa 25-100 Tab] Butalbital/Acetaminophen 1 tab PO Q4HR PRN 11/22/20 10/26/22 [Butalbital-Acetaminophn 50-325] Irbesartan [Avapro] 75 mg PO DAILY 12/02/20 10/26/22 Rosuvastatin Calcium [Crestor] 5 mg PO DAILY 12/02/20 10/26/22 Albuterol Sulfate [Proair 1 puffs IH Q4HR PRN 08/21/21 10/26/22 Respiclick] Ezetimibe [Zetia] 10 mg PO DAILY 08/21/21 10/26/22 Furosemide [Lasix] 20 mg PO BID 08/21/21 10/26/22 Pantoprazole Sodium 40 mg PO BID 08/21/21 10/26/22 Acetaminophen [Tylenol] 2 tab PO Q8HR PRN 10/26/22 10/26/22 Ascorbic Acid 1 tab PO DAILY 10/26/22 10/26/22 Aspirin [Aspirin EC] 1 tab PO BID 10/26/22 10/26/22 Calcium Carbonate [Calcium] 1 tab PO DAILY 10/26/22 10/26/22 Cyclobenzaprine HCl 1 tab PO TID PRN 10/26/22 10/26/22 Magnesium Oxide 1 tab PO DAILY 10/26/22 10/26/22 Meloxicam [Mobic] 1 tab PO BID 10/26/22 10/26/22 Ondansetron HCl 1 tab PO Q6HR PRN 10/26/22 10/26/22 Propranolol [Inderal] 1 tab PO BID 10/26/22 10/26/22 Senna [Senokot] 1 tab PO BID PRN 10/26/22 10/26/22 Zinc Gluconate [Zinc] 1 tab PO DAILY 10/26/22 10/26/22 diphenhydrAMINE [Benadryl] 1 cap PO HS PRN 10/26/22 10/26/22 oxyCODONE [Roxicodone] 0.5 - 1 tab PO Q4HR PRN 10/26/22 10/26/22 polyethylene glycoL 3350 [Miralax] 8.5 - 17 gm PO DAILY PRN 10/26/22 10/26/22 - Allergies Allergies/Adverse Reactions: Allergies Allergy/AdvReac Type Severity Reaction Status Date / Time amitriptyline Allergy Unknown Verified 10/25/22 12:17 beclomethasone Allergy Unknown Verified 10/25/22 12:17 gabapentin Allergy Respiratory Verified 10/25/22 12:17 hydroxychloroquine Allergy Unknown Verified 10/25/22 12:17 meperidine [From Demerol] Allergy Unknown Verified 10/25/22 12:17 Pnlhukx-TXS-WyV Reductase Allergy Unknown Verified 10/25/22 12:17 Inhibitor tramadol Allergy Unknown Verified 10/25/22 12:17 zolpidem [From Ambien] Allergy Unknown Verified 10/25/22 12:17 - Social History Does the pt smoke?: No Smoking Status: Never smoker Does the pt drink ETOH?: No Does the pt have substance abuse?: No - Immunizations Immunizations are current?: Yes - POLST Patient has POLST: No PD ED PE NORMAL - Vitals Vital signs reviewed: Yes - General General: Alert and oriented X 3, No acute distress, Well developed/nourished - HEENT HEENT: Atraumatic, PERRL, EOMI, Moist mucous membranes - Neck Neck: Supple, no meningeal sign - Cardiac Cardiac: RRR, No murmur, Strong equal pulses - Respiratory Respiratory: No respiratory distress, Clear bilaterally - Abdomen Abdomen: Normal bowel sounds, Soft, Non tender, Non distended - Derm Derm: Normal color, Warm and dry, No rash - Extremities Extremities: Other (Shortening and internal rotation of LLE, with deformity at L hip.) - Neuro Neuro: Alert and oriented X 3, 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, No motor deficit, No sensory deficit, Normal speech - Psych Psych: Normal mood, Normal affect Results - Vitals Vitals: Oxygen O2 Source Room air - Labs Labs: Laboratory Tests 10/25/22 10/25/22 12:24 12:24 WBC 10.7 RBC 3.30 L Hgb 10.1 L Hct 31.4 L MCV 95.2 MCH 30.6 MCHC 32.2 RDW 15.2 H Plt Count 270 MPV 11.3 H Neut # (Auto) 8.7 H Lymph # (Auto) 1.0 L [place] # (Auto) 0.9 Eos # (Auto) 0.1 Baso # (Auto) 0.1 Absolute Nucleated RBC 0.00 Nucleated RBC % 0.0 Sodium 137 Potassium 3.8 Chloride 98 L Carbon Dioxide 25 Anion Gap 14.0 H BUN 37 H Creatinine 0.7 Estimated GFR (MDRD) 81 L Glucose 112 H Calcium 9.0 Total Bilirubin 0.7 AST 108 H ALT 47 Alkaline Phosphatase 103 Total Protein 6.6 L Albumin 3.6 Globulin 3.0 Albumin/Globulin Ratio 1.2 Lipase 24 - Rads (name of study) L hip/pelvis XR Radiology: Final report received, See rad report (L hip dislocation) post-reduction XR x 3 Radiology: Final report received, See rad report (still dislocated each time) Procedures - Reduction Body part reduced: Left, Hip, prosthetic Fracture or dislocation: Dislocation Hip reduction technique: Allis - flex/pull/rotate, Fulcrum, Other (Extend, internally rotate) Reduction aftercare: NV intact, Other (Multiple attempts with heavy procedural sedation with propofol. Hip easily and very clearly reduced each time, but immediately slid back out of place as soon as pressure was removed.) - Procedural sedation Sedation prep: Informed consent, Time out completed, Last meal (4h), PE performed, ASA 2 - mild disease Sedation Medications: propofol Mallampati classification: I Patient status during sedation: Unresponsive, Vitals remained stable, Maintained airway, Recovered uneventfully, Respiratory depression, Needed resp assistance Sedation recovery: Recovered uneventfully, Back to baseline Time in sedation (Minutes): 20 PD Medical Decision Making - ED course Complexity details: reviewed old records, reviewed results, re-evaluated patient, considered differential, d/w patient, d/w business intelligence consultant ED course: This pt unfortunately had a very poor track record with recurrent dislocations, despite extensive orthopedic intervention. I personally, as well as my colleagues, had successfully reduced the pt's hip many times, and I did make attempt again in the ED. While the pt was easy to reduce, with very dramatic evidence of reduction, the hip was very unstable, and reduction failed immediately every time. I did have my colleague on duty, Dr. Ramos, also try to see if he could get a lasting reduction, but reduction again failed. I did consult Dr. Reyes, who was mobile application engineer for orthopedics. The plan at this time is that he will take the pt to OR to attempt reduction there. Departure - Departure Disposition: ED Transfer to [facility] Clinical Impression: Hip dislocation, left Qualifiers: Encounter type: initial encounter Qualified Code(s): S73.005A - Unspecified dislocation of left hip, initial encounter Condition: Serious Discharge Date/Time: 10/25/22 18:00
[2022-10-25 12:28] LABS: BASOPHILS # (AUTO) 0.1 10^3/uL (0.0-0.1); BASOPHILS % (AUTO) 0.5 %; EOSINOPHILS # (AUTO) 0.1 10^3/uL (0.0-0.7); EOSINOPHILS % (AUTO) 0.6 %; HCT - HEMATOCRIT 31.4 % (37.0-47.0); HGB - HEMOGLOBIN 10.1 g/dL (12.0-16.0); LYMPHOCYTES % (AUTO) 9.1 %; MEAN CORPUSCULAR HEMOGLOBIN 30.6 pg (27.0-31.0); MEAN CORPUSCULAR HGB CONC 32.2 g/dL (32.0-36.0); MEAN CORPUSCULAR VOLUME 95.2 fL (81.0-99.0); MEAN PLATELET VOLUME 11.3 fL (7.9-10.8); MONOCYTES # (AUTO) 0.9 10^3/uL (0.0-1.0); MONOCYTES % (AUTO) 7.9 %; NEUTROPHILS # (AUTO) 8.7 10^3/uL (1.5-6.6); NEUTROPHILS % (AUTO) 81.4 %; PLT - PLATELET COUNT 270 10^3/uL (130-450); RED CELL DISTRIBUTION WIDTH 15.2 % (12.0-15.0); WHITE BLOOD COUNT 10.7 x10^3/uL (4.8-10.8)
[2022-10-25] MEDS ORDERED: PROPOFOL 200 MG/20 ML VIAL IVP STA (12:34)
[2022-10-25 12:42] LABS: ALBUMIN 3.6 g/dL (3.2-5.5); ALBUMIN/GLOBULIN RATIO 1.2 (1.0-2.2); BILIRUBIN,TOTAL 0.7 mg/dL (0.2-1.0); CREATININE 0.7 mg/dL (0.4-1.0); POTASSIUM 3.8 mmol/L (3.5-5.0); TOTAL PROTEIN 6.6 g/dL (6.7-8.2)
--- NOTE | 2022-10-25 12:48 | XRAY Report ---
PROCEDURE: Hip w/Pelvis 2-3V LT INDICATIONS: fall/pain/deformity TECHNIQUE: AP pelvis with lateral view(s) of the left hip(s). COMPARISON: 10/20/2022 and 10/18/2022. FINDINGS: Bones: There is prior left total hip arthroplasty. Superior dislocation of left femoral head prosthes is is noted in relation to acetabular prosthesis. No gross acute fracture is seen. Pelvic ring appear s intact. No suspicious bony lesions. Post fusion changes are noted in lower lumbar spine at L5-S1 level. Soft tissues: The visualized bowel gas pattern is normal. No suspicious soft tissue calcifications. IMPRESSION: Prior left total hip arthroplasty with superior dislocation of left hip prosthesis as abo ve. No definite fracture is seen. Reviewed by: Jensen Kim MD on 10/25/2022 12:47 PM PST Approved by: Jnesen Kim MD on 10/25/2022 12:47 PM PST Station ID: [id number]
[2022-10-25] MEDS ORDERED: PROPOFOL 200 MG/20 ML VIAL IVP ONE (14:26)
--- NOTE | 2022-10-25 14:57 | XRAY Report ---
PROCEDURE: Pelvis 1 View INDICATIONS: POSR REDUCTION TECHNIQUE: 1 view(s) of the pelvis acquired. COMPARISON: Earlier study from the same day and 10/20/2022. FINDINGS: Bones: There is persistent superior dislocation of femoral prosthesis in relation to acetabular prost hesis. No definite fracture is seen. No suspicious bony lesions. Postsurgical changes in lower lumba r spine is again seen. Soft tissues: Visualized bowel gas pattern is normal. No suspicious soft tissue calcifications. IMPRESSION: Persistent superior dislocation of left hip prosthesis not significantly changed from ear lier study. No gross acute fracture is seen. Reviewed by: Jensen Kim MD on 10/25/2022 2:56 PM PST Approved by: Jensen Kim MD on 10/25/2022 2:56 PM PST Station ID: [id number]
[2022-10-25] MEDS ORDERED: HYDROmorphone 1 MG/ML CARPUJECT IVP STA (15:53)
--- NOTE | 2022-10-25 17:21 | HISTORY & PHYSICAL EXAMINATION ---
HPI - History Obtained From Records Reviewed: Old records reviewed History obtained from: Patient, Family - History of Present Illness HPI Comment/Other: This is a 77-year-old woman that presents to the emergency room today with a painful left hip. She was getting up off of the toilet seat and felt a pop to her left hip. She has had primary in 2 revision left hip arthroplasties. The revision arthroplasties have been performed in the past month and a half. The surgeries were performed at [facility]. Apparently she had a constrained acetabular liner placed at the time of the first revision surgery in August, dislocated her hip about a month later. She had a second revision in the constrained liner which was apparently defective was removed and conventional hip socket remains in place. Unfortunately she has dislocated her left total hip arthroplasty approximately 4 times in the past 9 days. This is her fourth time today. She has considerable pain about her left hip. An attempt at closed reduction was done by our emergency room physicians which generally are able to reduce dislocated hips. I was asked to see the patient because of inability to reduce the left hip. The patient is sedated but alert. She does not recall a definite fall. I spoke to her daughter over the phone who tells me that her memory is not always accurate. The patient does have a history of systemic lupus erythematosus. She has low body mass index. 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: positive: Other HEENT: positive: Tonsil/Adenoidectomy Social & Family Hx - Social History Does the pt smoke?: No Smoking Status: Never smoker Does the pt drink ETOH?: No Does the pt have substance abuse?: No - POLST Patient has POLST: No Meds/Allgy - Home Medications Home Medications: Ambulatory Orders Medication Instructions Recorded Confirmed Propranolol HCl 10 mg PO BID 06/09/20 08/21/21 Carbidopa/Levodopa 2 tab PO BID PRN 06/17/20 08/21/21 [Carbidopa-Levodopa 25-100 Tab] Butalbital/Acetaminophen 1 tab PO PRN PRN 11/22/20 08/21/21 [Butalbital-Acetaminophn 50-325] Irbesartan [Avapro] 75 mg PO DAILY 12/02/20 08/21/21 Rosuvastatin Calcium [Crestor] 5 mg PO DAILY 12/02/20 08/21/21 Oxycodone HCl/Acetaminophen 1 - 2 each PO Q6H PRN #14 tablet 12/20/20 08/21/21 [Percocet 5-325 mg Tablet] Albuterol Sulfate [Proair 2 puffs IH Q4HR PRN 08/21/21 08/21/21 Respiclick] Apixaban [Eliquis] 5 mg PO DAILY 08/21/21 08/21/21 Clopidogrel [Plavix] 75 mg PO DAILY 08/21/21 08/21/21 Ezetimibe [Zetia] 10 mg PO DAILY 08/21/21 08/21/21 Furosemide [Lasix] 20 mg PO DAILY 08/21/21 08/21/21 Pantoprazole Sodium 40 mg PO DAILY 08/21/21 08/21/21 - Allergies Allergies/Adverse Reactions: Allergies Allergy/AdvReac Type Severity Reaction Status Date / Time amitriptyline Allergy Unknown Verified 10/25/22 12:17 beclomethasone Allergy Unknown Verified 10/25/22 12:17 gabapentin Allergy Respiratory Verified 10/25/22 12:17 hydroxychloroquine Allergy Unknown Verified 10/25/22 12:17 meperidine [From Demerol] Allergy Unknown Verified 10/25/22 12:17 Ymwyveb-[id number]-WyL Reductase Allergy Unknown Verified 10/25/22 12:17 Inhibitor tramadol Allergy Unknown Verified 10/25/22 12:17 zolpidem [From Ambien] Allergy Unknown Verified 10/25/22 12:17 Exam - Vital Signs Vital Signs: Vital Signs x48h Temp Pulse Resp BP Pulse Ox O2 Flow Rate 10/25/22 16:47 68 16 137/80 H 100 10/25/22 15:36 73 16 100 10/25/22 15:28 80 16 147/79 H 100 2 10/25/22 14:38 68 18 129/65 100 2 10/25/22 14:34 68 12 10/25/22 14:28 60 14 142/67 H 100 2 10/25/22 14:25 64 17 100 2 10/25/22 14:19 66 21 100 10/25/22 14:18 72 18 100 10/25/22 14:16 73 14 100 10/25/22 14:13 2 10/25/22 14:12 68 17 100 10/25/22 14:11 61 14 100 10/25/22 14:09 59 L 15 125/64 100 10/25/22 14:08 61 127/66 100 10/25/22 14:06 65 139/79 H 98 10/25/22 13:59 73 16 139/79 H 100 10/25/22 13:49 82 16 100 10/25/22 13:42 71 15 143/68 H 100 10/25/22 13:35 16 99 10/25/22 12:15 69 17 100 10/25/22 12:10 36.8 C 71 18 174/134 H 98 - Physical Exam Comments/Other: She is alert, articulate. The left hip is painful to move. The left leg is shortened and externally rotated. Her neurovascular is intact. Pulses are reduced to left foot but there is no acute ischemia. Results - Lab Results Fish Bones: 10/25/22 12:24 10/25/22 12:24 Other Lab Results: Lab Results x24hrs 10/25/22 10/25/22 Range/Units 12:24 12:24 WBC 10.7 (4.8-10.8) x10^3/uL RBC 3.30 L (4.20-5.40) 10^6/uL Hgb 10.1 L (12.0-16.0) g/dL Hct 31.4 L (37.0-47.0) % MCV 95.2 (81.0-99.0) fL MCH 30.6 (27.0-31.0) pg MCHC 32.2 (32.0-36.0) g/dL RDW 15.2 H (12.0-15.0) % Plt Count 270 (130-450) 10^3/uL MPV 11.3 H (7.9-10.8) fL Neut # (Auto) 8.7 H (1.5-6.6) 10^3/uL Lymph # (Auto) 1.0 L (1.5-3.5) 10^3/uL [place] # (Auto) 0.9 (0.0-1.0) 10^3/uL Eos # (Auto) 0.1 (0.0-0.7) 10^3/uL Baso # (Auto) 0.1 (0.0-0.1) 10^3/uL Absolute Nucleated RBC 0.00 x10^3/uL Nucleated RBC % 0.0 /100WBC Sodium 137 (135-145) mmol/L Potassium 3.8 (3.5-5.0) mmol/L Chloride 98 L (101-111) mmol/L Carbon Dioxide 25 (21-32) mmol/L Anion Gap 14.0 H (6-13) BUN 37 H (6-20) mg/dL Creatinine 0.7 (0.4-1.0) mg/dL Estimated GFR (MDRD) 81 L (>89) Glucose 112 H (70-100) mg/dL Calcium 9.0 (8.5-10.3) mg/dL Total Bilirubin 0.7 (0.2-1.0) mg/dL AST 108 H (10-42) IU/L ALT 47 (10-60) IU/L Alkaline Phosphatase 103 (42-121) IU/L Total Protein 6.6 L (6.7-8.2) g/dL Albumin 3.6 (3.2-5.5) g/dL Globulin 3.0 (2.1-4.2) g/dL Albumin/Globulin Ratio 1.2 (1.0-2.2) Lipase 24 (22-51) U/L - Diagnostic Imaging Results Diagnostic Imaging Results: positive: Read independently (Dislocated left total hip replacement) Impression/Plan - Problem List Problem List: Recurrent dislocation left total hip replacement She has had numerous dislocations since having 2 revision surgeries and numerous revisions before the revision surgery. I spoke to the daughter, Leila Shoemaker by telephone this evening. She would like us to proceed with closed reduction of the left hip, knowing that another dislocation is almost inevitable. She is trying to get additional opinion at [facility] and has failed. I spoke to her surgeon who did the 2 revisions, [address] Daley. He had a constrained liner inserted initially and then it was removed on the subsequent procedure. She has tried braces according to him and daughter and the braces do not seem to keep her hip reduced. I discussed the choices with the daughter closed reduction versus leaving the hip on reduced. Perhaps, conversion to a [place] is going to be the final solution but this will need to be decided by patient, family and her surgeon in [place] Dr. Daley. The daughter has given verbal consent for anesthesia and surgical treatment. She understands the potential complication; the most likely complication being another dislocation of the hip.I spoke to the emergency room physician, she finds no other abnormalities other than her left hip dislocation
--- NOTE | 2022-10-25 17:45 | ANESTHESIA ---
Pre-Anesthesia VS, & Labs - Diagnosis L hip dislocation - Procedure closed reduction L hip Vital Signs: Temp Pulse Resp BP Pulse Ox O2 Flow Rate 36.8 C 68 16 137/80 H 100 2 10/25/22 12:10 10/25/22 16:47 10/25/22 16:47 10/25/22 16:47 10/25/22 16:47 10/25/22 15:28 Height: 5 ft Weight (kg): 48.4 kg Body Mass Index: 20.8 BMI Classification: Normal - NPO Other (no solids, sips of H2O 2 hrs ago) - Is Patient ?: No, Not Applicable - Lab Results Current Lab Results: Laboratory Tests 10/25/22 12:24: Sodium 137, Potassium 3.8, Chloride 98 L, Carbon Dioxide 25, Anion Gap 14.0 H, BUN 37 H, Creatinine 0.7, Estimated GFR (MDRD) 81 L, Glucose 112 H, Calcium 9.0, Total Bilirubin 0.7, AST 108 H, ALT 47, Alkaline Phosphatase 103, Total Protein 6.6 L, Albumin 3.6, Globulin 3.0, Albumin/Globulin Ratio 1.2, Lipase 24 10/25/22 12:24: WBC 10.7, RBC 3.30 L, Hgb 10.1 L, Hct 31.4 L, MCV 95.2, MCH 30.6, MCHC 32.2, RDW 15.2 H, Plt Count 270, MPV 11.3 H, Neut # (Auto) 8.7 H, Lymph # (Auto) 1.0 L, [place] # (Auto) 0.9, Eos # (Auto) 0.1, Baso # (Auto) 0.1, Absolute Nucleated RBC 0.00, Nucleated RBC % 0.0 Fish Bones: 10/25/22 12:24 10/25/22 12:24 Home Medications and Allergies Propranolol HCl 10 mg PO BID 06/09/20 Carbidopa/Levodopa [Carbidopa-Levodopa 25-100 Tab] 2 tab PO BID PRN 06/17/20 Butalbital/Acetaminophen [Butalbital-Acetaminophn 50-325] 1 tab PO PRN PRN 11/22/20 Irbesartan [Avapro] 75 mg PO DAILY 12/02/20 Rosuvastatin Calcium [Crestor] 5 mg PO DAILY 12/02/20 Albuterol Sulfate [Proair Respiclick] 2 puffs IH Q4HR PRN 08/21/21 Apixaban [Eliquis] 5 mg PO DAILY 08/21/21 Clopidogrel [Plavix] 75 mg PO DAILY 08/21/21 Ezetimibe [Zetia] 10 mg PO DAILY 08/21/21 Furosemide [Lasix] 20 mg PO DAILY 08/21/21 Pantoprazole Sodium 40 mg PO DAILY 08/21/21 Allergies/Adverse Reactions: Allergies Allergy/AdvReac Type Severity Reaction Status Date / Time amitriptyline Allergy Unknown Verified 10/25/22 12:17 beclomethasone Allergy Unknown Verified 10/25/22 12:17 gabapentin Allergy Respiratory Verified 10/25/22 12:17 hydroxychloroquine Allergy Unknown Verified 10/25/22 12:17 meperidine [From Demerol] Allergy Unknown Verified 10/25/22 12:17 Ristebt-[id number] Reductase Allergy Unknown Verified 10/25/22 12:17 Inhibitor tramadol Allergy Unknown Verified 10/25/22 12:17 zolpidem [From Ambien] Allergy Unknown Verified 10/25/22 12:17 Anes History & Medical History - Anesthetic History Anesthesia Complications: reports: No previous complications Family history of Anesthesia Complications: Denies Family history of Malignant Hyperthermia: Denies - Medical History Cardiovascular: reports: Hypertension Pulmonary: reports: Pneumonia Gastrointestinal: reports: Colon polyps Urinary: reports: None Neuro: reports: Other Musculoskeletal: reports: Osteoarthritis, Fibromyalgia, Chronic back pain, Other Endocrine/Autoimmune: reports: Systemic lupus erythematosus Skin: reports: None Smoking Status: Never smoker - Surgical History General: reports: Appendectomy, Colonoscopy Eyes Ears Nose Throat (EENT): reports: Tonsil/Adenoidectomy Urologic: reports: Bladder surgery Gynecologic: reports: Other Orthopedic: reports: Hip replacement, Spine surgery Exam General: Alert, Oriented x3, Cooperative, Moderate distress Dental: WNL Mouth Openin Fingerbreadth Neck Mobility: Normal Mallampati classification: I Thyromental Distance: 4-6 cm Respiratory: Lungs clear Cardiovascular: Regular rate Plan Anesthesia Type: Total IV, Fascia Iliaca Block Consent for Procedure(s) Verified and Reviewed: Yes Code Status: Attempt Resuscitation ASA classification: 2-Mild systemic disease Is this case an emergency?: Yes
[2022-10-25] MEDS ORDERED: fentaNYL 100 MCG/2 ML VIAL IVP PRN (17:46)
[2022-10-25] MEDS ORDERED: NALOXONE 0.4 MG/ML VIAL IVP PRN (17:46)
[2022-10-25] MEDS ORDERED: METOCLOPRAMIDE 10 MG/2 ML VIAL IVP PRN (17:46)
[2022-10-25] MEDS ORDERED: ONDANSETRON 4 MG/2 ML VIAL IVP PRN (17:46)
[2022-10-25] MEDS ORDERED: ATROPINE ABBOJECT 1 MG/10 ML SYRINGE IVP PRN (17:46)
[2022-10-25] MEDS ORDERED: ePHEDrine 50 MG/ML VIAL IVP PRN (17:46)
[2022-10-25] MEDS ORDERED: LACTATED RINGERS 1,000 ML IV SCH (18:00)
--- NOTE | 2022-10-25 18:46 | OPERATIVE REPORT ---
Operative Report - General Procedure Date: 10/25/22 Planned Procedure: Closed reduction left total hip replacement Pre-Op Diagnosis: Recurrent dislocation left total hip replacement, status post revision arth Procedure Performed: Closed reduction left total hip replacement Post Op Diagnosis: Same as preoperative diagnosis - Procedure Note Primary Surgeon: Yoan Reyes MD Secondary Surgeon: Lennei Roberson PAC Anesthesia Provider: Shira Terry CRNA Anesthesia Technique: General ET tube Estimated Blood Loss (mL): 0 Indications: This is a 77-year-old woman with a history of primary and now 2 revision hip arthroplasties to left hip. She has had a revision and August and another revision of her left hip in September. She has had at least 4 dislocations since the second revision and dislocation prior to that multiple times. She was found to have dislocations on 10/16/2022, 10/18/2022, 10/20/2022 and today involving the left hip replacement. She has had both constrained and removal of the constrained acetabular arthroplasty to the left hip recently. She seemed to arise from a sitting position while on the toilet seat. She felt the left hip dislocate as she has had on numerous occasions. She was brought to the emergency room because of pain, attempted closed reduction with propofol anesthesia by our emergency room physicians without success. Findings: The left leg was shortened and externally rotated, slightly adducted. Her incision shows very subtle dehiscence at the distal and, mild weeping of blood from incision but no gross disruption of incision or infection Complications: None - Other Other Information/Narrative: The patient was brought to the operating room, placed in the supine position. A timeout procedure was performed by the entire operating room team and all were in agreement. The hip reduction was attempted at least 4 times. The first time the patient was kept in the supine position, left leg adducted, traction applied and then rotation with countertraction on pelvis by 2 people. The second attempt at reduction was with the hip flexed to 90 degrees, countertraction to pelvis, traction with knee flexed to 90 degrees, adduction and rotation. I attempted this twice without success. The third attempt was with the patient in the lateral decubitus position bringing the left leg over the opposite side of the table, applying traction to the left leg with the leg in abduction, countertraction to pelvis, rotation last. There is seem to be hip reduction but very unstable with rotation. The hip reduction could not be maintained. The hip remains dislocated. Therefore, the procedure was ended. It was my opinion that an open reduction would be associated with a too high risk of infection, especially with some swelling and signs of some hematoma to the incision area about the left hip. This was discussed as a possibility with her daughter. She will need to be reevaluated by her revision arthroplasty surgeon in [place]. Patient tolerated procedure well
[2022-10-25] MEDS ORDERED: ONDANSETRON ODT 4 MG TABLET TL PRN (18:58)
[2022-10-25] MEDS ORDERED: LACTATED RINGERS 1,000 ML IV ONE (19:00)
--- NOTE | 2022-10-25 19:26 | ANESTHESIA POST OP EVALUATION ---
Anesthesia Post Eval - Post Anesthesia Eval Vitals: Last Vital Signs Temp 36.6 C 10/25/22 19:12 Pulse 68 10/25/22 19:12 Resp 13 10/25/22 19:12 BP 186/81 H 10/25/22 19:12 Pulse Ox 100 10/25/22 19:12 O2 Flow Rate 2 10/25/22 15:28 CV Function Including HR & BP: Stable
[2022-10-25] MEDS ORDERED: fentaNYL 100 MCG/2 ML VIAL ONE (19:28)
[2022-10-25] MEDS: ACETAMINOPHEN 325 MG TABLET PO PRN (20:14)
[2022-10-25] MEDS: NS W/20 MEQ KCL 1,000 ML IV SCH (20:18)
[2022-10-25] MEDS: HYDROmorphone 0.5 MG/0.5 ML SYRINGE IVP PRN (22:03)
[2022-10-25] MEDS: oxyCODONE 5 MG TABLET PO PRN (23:05)
[2022-10-25] MEDS: SODIUM CHLORIDE FLUSH 0.9% 10 ML SYRINGE IVP SCH (23:06)
[2022-10-26] MEDS: HYDROmorphone 0.5 MG/0.5 ML SYRINGE IVP PRN ×7 (01:38→20:44)
[2022-10-26] MEDS: ACETAMINOPHEN 325 MG TABLET PO PRN ×4 (02:59→23:54)
[2022-10-26] MEDS: oxyCODONE 5 MG TABLET PO PRN ×3 (02:59→23:53)
[2022-10-26] MEDS: SODIUM CHLORIDE FLUSH 0.9% 10 ML SYRINGE IVP PRN (07:43)
[2022-10-26] MEDS: SODIUM CHLORIDE FLUSH 0.9% 10 ML SYRINGE IVP SCH ×2 (07:43→16:49)
[2022-10-26] MEDS: NS W/20 MEQ KCL 1,000 ML IV SCH ×2 (07:44→21:30)
[2022-10-26] MEDS: ENOXAPARIN 40 MG/0.4 ML SYRINGE SUBQ SCH (08:00)
--- NOTE | 2022-10-26 12:17 | PHARMACY PROGRESS NOTE ---
- Best Possible Medication History Admit Date and Time: 10/25/22 1859 Processed by: Pharmacy Medication History completed: Yes Patient Interview: Completed Secondary Source(s): Written medication list, Pharmacy records (Pt has med list from [facility] As the person ultimately responsible for medication therapy, providers are able to order a medication from an existing home medication list in [facility] via the "Reconcile Routine" prior to Confirmation of that medication by information support project manager. Such practice is discouraged except when the physician, in their clinical judgment, deems that a medical need exists for a medication without regard to previous use.
[2022-10-26] MEDS ORDERED: CARBIDOPA/LEVODOPA 25 MG/100 MG TABLET PO PRN (14:53)
[2022-10-26] MEDS ORDERED: polyethylene glycoL 3350 17 GM PACKET PO PRN (14:53)
[2022-10-26] MEDS ORDERED: ALBUTEROL NEB 2.5 MG/3 ML INH PRN (15:30)
--- NOTE | 2022-10-26 15:30 | PROVIDER PROGRESS NOTE ---
Subjective - General Admit Date: 10/25/22 Procedure Date: 10/25/22 Post Op Days: 1 Procedure Performed: Closed reduction of dislocated left total hip arthroplasty - Other Other Information/Narrative: Sitting upright in bed on her phone She is in pain with all movement to the left hip She is taking oral and IV narcotics as prescribed but continues to have pain She states she cannot return home as she lives alone and cannot care for herself She did not get up out of bed with physical therapy today Objective - Patient Data Reviewed Vital Signs: Yes Vital Signs: Vital Signs x48h Temp Pulse Resp BP Pulse Ox 10/26/22 08:00 36.9 C 60 18 142/61 H 100 Weight: Weight 10/24/22 10/25/22 10/26/22 23:59 23:59 23:59 Weight (kg) 46.23 kg Intake & Output: Intake and Output Totals x24h 10/24/22 10/25/22 10/26/22 23:59 23:59 23:59 Intake Total 1000 1687.5 Output Total 600 Balance 1000 1087.5 - Lab Results Lab Results: 10/25/22 12:24 10/25/22 12:24 - Current Medications Current Medications: Current Medications Generic Name Dose Route Start Last Admin Trade Name Freq PRN Reason Stop Dose Admin Acetaminophen 650 mg 10/25/22 18:58 10/26/22 10:44 Acetaminophen 325 Mg Tablet PO 650 mg Q4HR PRN Administration Pain 1 to 4, or Fever Enoxaparin Sodium 40 mg 10/26/22 09:00 10/26/22 08:00 Enoxaparin 40 Mg/0.4 Ml Syringe SUBQ 40 mg DAILY MATTHEW Administration Hydromorphone HCl 0.5 mg 10/25/22 18:58 10/26/22 13:58 Hydromorphone 0.5 Mg/0.5 Ml Syringe IVP 0.5 mg Q2H PRN Administration Pain 8 to 10 Potassium Chloride/Sodium Chloride 1,000 mls @ 75 mls/hr 10/25/22 19:00 10/26/22 07:44 Normal Saline 0.9% W/20 Meq Kcl IV 75 mls/hr .[id number] MATTHEW Administration Oxycodone HCl 5 mg 10/25/22 18:58 10/26/22 02:59 Oxycodone 5 Mg Tablet PO 5 mg Q4HR PRN Administration Pain 5 to 7 Sodium Chloride 10 ml 10/25/22 18:58 10/26/22 07:43 Sodium Chloride Flush 0.9% 10 Ml Syringe IVP 10 ml PRN PRN Administration NEEDED PER PROVIDER ORDERS Sodium Chloride 10 ml 10/26/22 01:00 10/26/22 07:43 Sodium Chloride Flush 0.9% 10 Ml Syringe IVP 10 ml 0100,0900,1700 [facility] Administration - Physical Exam Comments/Other: Alert and oriented, sitting upright in bed left leg is shortened and externally rotated Mepelex dressing is dry and intact without any drainage or discharge Neurovascularly intact to the left lower extremity Impression/Plan - Problem List Problem List: 77-year-old female admitted to [facility] for recurrent left hip dislocation after left total hip arthroplasty which revised twice in August and September of 2022. She underwent closed reduction under anesthesia on 10/25/2022 which was unsuccessful. Her left hip is still dislocated. Her pain continues to be uncontrolled requiring oral and IV narcotic medications in a scheduled manner. Patient was seen by myself and Dr. Reyes. Dr. Reyes spoke to the patient's daughter Joleen Shoemaker. Both the patient and Leila Shoemaker agreed that the patient needs to be discharged to a halfway due to two recent major hip surgeries in the past two months, overall deconditioning, frailty of age, weakness, immobility due to chronic dislocation of left hip arthroplasty needing further revision surgery in the future most likely either at [facility] or [facility]. Until further surgical intervention can be obtained, she must be discharged to a halfway for assistance with activities of daily living such as meals, bathing and pain control. She lives alone and is unable to care for herself and cannot bear weight on the left lower extremity. Her social status of living alone inhibits a safe discharge home. Dr. Reyes also spoke to the patient's orthopedic surgeon at [facility] who performed two revision surgeries for left total hip arthroplasty this year. The surgeon recommended follow-up with him or with [facility] for further management and surgical intervention. It was his opinion that the patient should not be taken to the operating room until her soft tissues have healed from the most recent surgery. She worked with physical therapy today but was unable to get out of bed. She is nonweightbearing to the left lower extremity and requires assist to transfer. Given her overall weakness and lack of upper body strength, it is unlikely that she will be available to ambulate with a front wheeled walker. She will need to be discharged to a halfway for further care until she can follow-up with either [facility] or [facility]. Patient was admitted to in patient status today from an observation status under the 2 midnight rule for Medicare. In patient admission aims to control pain unmanaged overnight secondary to dislocated left total hip arthroplasty. She has had at least 4 dislocations in the past 10 days and reports a history of numerous dislocations over the past several months to years. Plan: - Nonweightbearing to left lower extremity - Pain management with oxycodone orally every 4-6 hours and IV dilaudid every 2 hours. Continue tylenol and celebrex orally - Regular diet - Discharge to a halfway, discussed with case management today who is in agreement with the plan - Hospitalist physician reviewing home medications - DVT prophylaxis with Lovenox 40 SQ - Home medications restarted today - Physical therapy and occupational therapy following - Mepilex dressing to remain in place. Sponge bathing can occur with Mepilex dressing in place - Bowel regimen initiated - No planned surgical intervention at [facility]
--- NOTE | 2022-10-26 16:54 | XRAY Report ---
PROCEDURE: OR C-Arm Procedure INDICATIONS: CLOSED REDUCTION FLUORO TIME: 0.04 TECHNIQUE: Single intraoperative image is present. COMPARISON: X-ray pelvis 10/25/2022 FINDINGS: There is dislocation of the left prosthetic hip with the femoral head superior to the acetabular comp onent. Hardware appears intact. IMPRESSION: Dislocation of prosthetic hip. Reviewed by: Katie Hodgson MD on 10/26/2022 4:52 PM PST Approved by: Katie Hodgson MD on 10/26/2022 4:52 PM [facility] Station ID: [id number]
[2022-10-26] MEDS ORDERED: oxyCODONE 5 MG TABLET PO ONE (19:00)
[2022-10-26] MEDS: FUROSEMIDE 20 MG TABLET PO SCH (20:44)
[2022-10-26] MEDS: ATORVASTATIN 10 MG TABLET PO SCH (20:44)
[2022-10-26] MEDS: PROPRANOLOL 40 MG TABLET PO SCH (20:44)
[2022-10-26] MEDS: PANTOPRAZOLE 40 MG TABLET PO SCH (20:44)
[2022-10-27] MEDS: SODIUM CHLORIDE FLUSH 0.9% 10 ML SYRINGE IVP SCH ×3 (01:06→15:45)
[2022-10-27] MEDS: HYDROmorphone 0.5 MG/0.5 ML SYRINGE IVP PRN ×7 (01:33→19:10)
[2022-10-27] MEDS: ACETAMINOPHEN 325 MG TABLET PO PRN (03:45)
[2022-10-27] MEDS: oxyCODONE 5 MG TABLET PO PRN (03:47)
[2022-10-27] MEDS: PROPRANOLOL 40 MG TABLET PO SCH ×2 (08:39→21:20)
[2022-10-27] MEDS: FUROSEMIDE 20 MG TABLET PO SCH ×2 (08:39→21:20)
[2022-10-27] MEDS: PANTOPRAZOLE 40 MG TABLET PO SCH ×2 (08:39→21:20)
[2022-10-27] MEDS: SENNA 8.6 MG TABLET PO PRN (08:39)
[2022-10-27] MEDS ORDERED: diphenhydrAMINE 25 MG CAPSULE PO PRN (08:43)
[2022-10-27 08:48] LABS: BASOPHILS # (AUTO) 0.1 10^3/uL (0.0-0.1); BASOPHILS % (AUTO) 0.8 %; EOSINOPHILS # (AUTO) 1.4 10^3/uL (0.0-0.7); EOSINOPHILS % (AUTO) 17.3 %; HCT - HEMATOCRIT 28.8 % (37.0-47.0); HGB - HEMOGLOBIN 9.1 g/dL (12.0-16.0); LYMPHOCYTES # (AUTO) 2.2 10^3/uL (1.5-3.5); LYMPHOCYTES % (AUTO) 27.8 %; MEAN CORPUSCULAR HEMOGLOBIN 30.8 pg (27.0-31.0); MEAN CORPUSCULAR HGB CONC 31.6 g/dL (32.0-36.0); MEAN CORPUSCULAR VOLUME 97.6 fL (81.0-99.0); MEAN PLATELET VOLUME 10.9 fL (7.9-10.8); MONOCYTES # (AUTO) 0.8 10^3/uL (0.0-1.0); MONOCYTES % (AUTO) 10.5 %; NEUTROPHILS # (AUTO) 3.4 10^3/uL (1.5-6.6); NEUTROPHILS % (AUTO) 43.3 %; PLT - PLATELET COUNT 208 10^3/uL (130-450); RED BLOOD COUNT 2.95 10^6/uL (4.20-5.40); RED CELL DISTRIBUTION WIDTH 15.6 % (12.0-15.0); WHITE BLOOD COUNT 7.9 x10^3/uL (4.8-10.8)
[2022-10-27 08:51] LABS: SLIDE REVIEW? Indicated
[2022-10-27] MEDS ORDERED: EZETIMIBE 10 MG PO SCH (09:00)
[2022-10-27] MEDS ORDERED: BUTALB/ACETAM/CAFF 50/325/40MG TABLET PO PRN (09:04)
[2022-10-27 09:08] LABS: RBC MORPHOLOGY (MULTIPLE) 3+ ANISOCYTOSIS (NORMAL)
[2022-10-27] MEDS: CALCIUM CARBONATE CHEW 500 MG TABLET PO SCH (09:09)
[2022-10-27] MEDS: ASCORBIC ACID 500 MG TABLET PO SCH (09:10)
[2022-10-27] MEDS: ENOXAPARIN 40 MG/0.4 ML SYRINGE SUBQ SCH (09:10)
[2022-10-27] MEDS: LOSARTAN 50 MG TABLET PO SCH (09:10)
[2022-10-27] MEDS: NS W/20 MEQ KCL 1,000 ML IV SCH ×2 (09:11→22:55)
--- NOTE | 2022-10-27 16:19 | PROVIDER PROGRESS NOTE ---
Subjective - General Admit Date: 10/26/22 Procedure Date: 10/25/22 Post Op Days: 2 Procedure Performed: Closed reduction of dislocated left total hip arthroplasty - Other Other Information/Narrative: Sitting upright in the chair awaiting lunch She reports pain with movement She was up to chair with physical therapy with no weightbearing on the left lower extremity She had a bowel movement today No nausea or vomiting tolerating oral diet well Objective - Patient Data Reviewed Vital Signs: Yes Vital Signs: Vital Signs x48h Temp Pulse Resp BP Pulse Ox 10/27/22 16:00 36.6 C 56 L 20 160/81 H 98 10/27/22 08:30 62 Weight: Weight 10/25/22 10/26/22 10/27/22 23:59 23:59 23:59 Weight (kg) 46.23 kg Intake & Output: Intake and Output Totals x24h 10/25/22 10/26/22 10/27/22 23:59 23:59 23:59 Intake Total 1000 3187.5 1636.25 Output Total 1000 3100 Balance 1000 2187.5 -1463.75 - Lab Results Lab Results: 10/27/22 08:44 10/25/22 12:24 Other Lab Results: Lab Results x24hrs 10/27/22 Range/Units 08:44 WBC 7.9 (4.8-10.8) x10^3/uL RBC 2.95 L (4.20-5.40) 10^6/uL Hgb 9.1 L (12.0-16.0) g/dL Hct 28.8 L (37.0-47.0) % MCV 97.6 (81.0-99.0) fL MCH 30.8 (27.0-31.0) pg MCHC 31.6 L (32.0-36.0) g/dL RDW 15.6 H (12.0-15.0) % Plt Count 208 (130-450) 10^3/uL MPV 10.9 H (7.9-10.8) fL Neut # (Auto) 3.4 (1.5-6.6) 10^3/uL Lymph # (Auto) 2.2 (1.5-3.5) 10^3/uL Mason # (Auto) 0.8 (0.0-1.0) 10^3/uL Eos # (Auto) 1.4 H (0.0-0.7) 10^3/uL Baso # (Auto) 0.1 (0.0-0.1) 10^3/uL Absolute Nucleated RBC 0.00 x10^3/uL Nucleated RBC % 0.0 /100WBC Manual Slide Review Indicated RBC Morph Micro Appear 3+ ANISOCYTOSIS (NORMAL) - Current Medications Current Medications: Current Medications Generic Name Dose Route Start Last Admin Trade Name Freq PRN Reason Stop Dose Admin Acetaminophen 650 mg 10/25/22 18:58 10/27/22 03:45 Acetaminophen 325 Mg Tablet PO 650 mg Q4HR PRN Administration Pain 1 to 4, or Fever Ascorbic Acid 500 mg 10/27/22 09:00 10/27/22 09:10 Ascorbic Acid 500 Mg Tablet PO 500 mg DAILY MATTHEW Administration Atorvastatin Calcium 10 mg 10/26/22 21:00 10/26/22 20:44 Atorvastatin 10 Mg Tablet PO 10 mg QPM MATTHEW Administration Calcium Carbonate/Glycine 1,000 mg 10/27/22 09:00 10/27/22 09:09 Calcium Carbonate Chew 500 Mg Tablet PO 1,000 mg DAILY MATTHEW Administration Enoxaparin Sodium 40 mg 10/26/22 09:00 10/27/22 09:10 Enoxaparin 40 Mg/0.4 Ml Syringe SUBQ 40 mg DAILY MATTHEW Administration Furosemide 20 mg 10/26/22 21:00 10/27/22 08:39 Furosemide 20 Mg Tablet PO 20 mg BID MATTHEW Administration Hydromorphone HCl 0.5 mg 10/25/22 18:58 10/27/22 15:43 Hydromorphone 0.5 Mg/0.5 Ml Syringe IVP 0.5 mg Q2H PRN Administration Pain 8 to 10 Potassium Chloride/Sodium Chloride 1,000 mls @ 75 mls/hr 10/25/22 19:00 10/27/22 09:11 Normal Saline 0.9% W/20 Meq Kcl IV 75 mls/hr .[id number] MATTHEW Administration Losartan Potassium 25 mg 10/27/22 09:00 10/27/22 09:10 Losartan 50 Mg Tablet PO 25 mg DAILY MATTHEW Administration Oxycodone HCl 5 mg 10/25/22 18:58 10/27/22 03:47 Oxycodone 5 Mg Tablet PO 5 mg Q4HR PRN Administration Pain 5 to 7 Pantoprazole Sodium 40 mg 10/26/22 21:00 10/27/22 08:39 Pantoprazole 40 Mg Tablet PO 40 mg BID MATTHEW Administration Propranolol HCl 40 mg 10/26/22 21:00 10/27/22 08:39 Propranolol 40 Mg Tablet PO 40 mg BID MATTHEW Administration Senna 8.6 mg 10/26/22 14:53 10/27/22 08:39 Senna 8.6 Mg Tablet PO 8.6 mg BID PRN Administration Constipation Sodium Chloride 10 ml 10/25/22 18:58 10/26/22 07:43 Sodium Chloride Flush 0.9% 10 Ml Syringe IVP 10 ml PRN PRN Administration NEEDED PER PROVIDER ORDERS Sodium Chloride 10 ml 10/26/22 01:00 10/27/22 15:45 Sodium Chloride Flush 0.9% 10 Ml Syringe IVP Not Given 0100,0900,1700 [facility] - Physical Exam Comments/Other: Alert and oriented, sitting upright in chair comfortable Left lower extremity is shortened with some external rotation Neurovascular intact to left lower extremity Ankle dorsiflexion plantarflexion intact Dressing is dry and intact without any discharge Impression/Plan - Problem List Problem List: 77-year-old female admitted to [facility] for 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 She had 2 revisions in August and September 2022 at [facility]. She underwent closed reduction of left hip dis location on 10/25/2022 which was unsuccessful and she continues to have a left hip dislocation. Her pain continues to require IV narcotic medications every 2 hours in addition to oral pain medications. The patient was seen by Dr. Reyes and myself. She continues to require inpatient admission for IV narcotic medication for pain management given hip dislocation. Her pain medications were adjusted today in attempt to transition to an oral pain management. She successfully worked with physical therapy and was up to a chair today. 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 It is likely she would benefit from a discharge to a [facility] facility Plan: -Nonweightbearing to left lower extremity -Pain management with oxycodone 5 mg every 4 hours, Tylenol and IV Dilaudid 0.5 mg every 2 hours as needed. Oral pain medications were scheduled today -Cyclobenzaprine initiated today -Continue with a regular diet and bowel regimen -DVT prophylaxis with Lovenox 40 subcutaneous, hemoglobin 9.1 today -Monitor blood pressure -Continue home medications -Physical therapy and Occupational Therapy following -Sponge baths for bathing, Mepilex dressing to remain in place -Surgical intervention is not anticipated at [facility]. She will follow-up outpatient with her orthopedic surgeon at [facility] with [facility] for further surgical intervention which may require removal of hardware - Hospitalist consult for management of chronic medical comorbidities
[2022-10-27] MEDS: oxyCODONE 5 MG TABLET PO SCH ×2 (17:42→21:21)
[2022-10-27] MEDS: ACETAMINOPHEN 325 MG TABLET PO SCH ×2 (17:45→21:21)
[2022-10-27] MEDS: ATORVASTATIN 10 MG TABLET PO SCH (21:20)
[2022-10-28] MEDS: ACETAMINOPHEN 325 MG TABLET PO SCH ×6 (00:39→20:39)
[2022-10-28] MEDS: oxyCODONE 5 MG TABLET PO SCH ×7 (00:40→23:59)
[2022-10-28] MEDS: SODIUM CHLORIDE FLUSH 0.9% 10 ML SYRINGE IVP SCH ×3 (00:40→16:19)
[2022-10-28] MEDS: CALCIUM CARBONATE CHEW 500 MG TABLET PO SCH (08:20)
[2022-10-28] MEDS: PANTOPRAZOLE 40 MG TABLET PO SCH ×2 (08:20→20:39)
[2022-10-28] MEDS: ENOXAPARIN 40 MG/0.4 ML SYRINGE SUBQ SCH (08:20)
[2022-10-28] MEDS: FUROSEMIDE 20 MG TABLET PO SCH ×2 (08:21→20:39)
[2022-10-28] MEDS: PROPRANOLOL 40 MG TABLET PO SCH ×2 (08:21→20:39)
[2022-10-28] MEDS: LOSARTAN 50 MG TABLET PO SCH (08:21)
[2022-10-28] MEDS: ASCORBIC ACID 500 MG TABLET PO SCH (08:21)
[2022-10-28] MEDS: HYDROmorphone 0.5 MG/0.5 ML SYRINGE IVP PRN ×3 (09:04→20:39)
[2022-10-28] MEDS: SODIUM CHLORIDE FLUSH 0.9% 10 ML SYRINGE IVP PRN (09:05)
[2022-10-28] MEDS ORDERED: oxyCODONE 5 MG TABLET PO PRN (10:21)
--- NOTE | 2022-10-28 11:27 | PROVIDER PROGRESS NOTE ---
Subjective - General Admit Date: 10/26/22 Procedure Date: 10/25/22 Post Op Days: 3 Procedure Performed: Closed reduction of dislocated left total hip arthroplasty - Other Other Information/Narrative: She is doing reasonably well with pain control. Her pain does fluctuate, sometimes its relatively well controlled and other times its not. She is using oral and intravenous narcotics. At the time of this morning's visit with her, she converses easily, semisitting in bed and has reasonably good pain control to her left hip. Objective - Patient Data Vital Signs: Vital Signs x48h Temp Pulse Resp BP Pulse Ox 10/28/22 07:25 36.9 C 56 L 16 156/71 H 97 10/28/22 04:56 55 L 145/70 H Intake & Output: Intake and Output Totals x24h 10/26/22 10/27/22 10/28/22 23:59 23:59 23:59 Intake Total 3187.5 3086.25 1040 Output Total 1000 4000 2200 Balance 2187.5 -913.75 -1160 - Lab Results Lab Results: 10/27/22 08:44 10/25/22 12:24 - Current Medications Current Medications: Current Medications Generic Name Dose Route Start Last Admin Trade Name Freq PRN Reason Stop Dose Admin Acetaminophen 650 mg 10/27/22 17:00 10/28/22 08:20 Acetaminophen 325 Mg Tablet PO 650 mg Q4HR MATTHEW Administration Ascorbic Acid 500 mg 10/27/22 09:00 10/28/22 08:21 Ascorbic Acid 500 Mg Tablet PO 500 mg DAILY MATTHEW Administration Atorvastatin Calcium 10 mg 10/26/22 21:00 10/27/22 21:20 Atorvastatin 10 Mg Tablet PO 10 mg QPM MATTHEW Administration Calcium Carbonate/Glycine 1,000 mg 10/27/22 09:00 10/28/22 08:20 Calcium Carbonate Chew 500 Mg Tablet PO 1,000 mg DAILY MATTHEW Administration Enoxaparin Sodium 40 mg 10/26/22 09:00 10/28/22 08:20 Enoxaparin 40 Mg/0.4 Ml Syringe SUBQ 40 mg DAILY MATTHEW Administration Furosemide 20 mg 10/26/22 21:00 10/28/22 08:21 Furosemide 20 Mg Tablet PO 20 mg BID MATTHEW Administration Hydromorphone HCl 0.5 mg 10/25/22 18:58 10/28/22 09:04 Hydromorphone 0.5 Mg/0.5 Ml Syringe IVP 0.5 mg Q2H PRN Administration Pain 8 to 10 Potassium Chloride/Sodium Chloride 1,000 mls @ 75 mls/hr 10/25/22 19:00 10/27/22 22:55 Normal Saline 0.9% W/20 Meq Kcl IV 75 mls/hr .[id number] MATTHEW Administration Losartan Potassium 25 mg 10/27/22 09:00 10/28/22 08:21 Losartan 50 Mg Tablet PO 25 mg DAILY MATTHEW Administration Oxycodone HCl 5 mg 10/27/22 17:00 10/28/22 08:21 Oxycodone 5 Mg Tablet PO 5 mg Q4HR MATTHEW Administration Pantoprazole Sodium 40 mg 10/26/22 21:00 10/28/22 08:20 Pantoprazole 40 Mg Tablet PO 40 mg BID MATTHEW Administration Propranolol HCl 40 mg 10/26/22 21:00 10/28/22 08:21 Propranolol 40 Mg Tablet PO 40 mg BID MATTHEW Administration Senna 8.6 mg 10/26/22 14:53 10/27/22 08:39 Senna 8.6 Mg Tablet PO 8.6 mg BID PRN Administration Constipation Sodium Chloride 10 ml 10/25/22 18:58 10/28/22 09:05 Sodium Chloride Flush 0.9% 10 Ml Syringe IVP 10 ml PRN PRN Administration NEEDED PER PROVIDER ORDERS Sodium Chloride 10 ml 10/26/22 01:00 10/28/22 08:22 Sodium Chloride Flush 0.9% 10 Ml Syringe IVP 10 ml 0100,0900,1700 [facility] Administration - Physical Exam Wound/Incisions: positive: Healing well Neurologic/Psychiatric: positive: Oriented x3, Motor nml, Sensation nml Comments/Other: She is up in the semisitting position, in bed, alert and oriented, reasonably comfortable. The leg has shortening and rotation deformity on the left side. Her incision about the left hip is dry and intact; no sign of infection or bleeding. Impression/Plan - Problem List Problem List: Recurrent dislocation left total hip replacement with hip currently dislocated I had a nice discussion with her about the potential plan of treatment including removal of the hip components once better soft tissue healing of her left hip incision has occurred. This Next surgery would most likely be done at [facility] by the previous orthopedic surgeon who has done her last 2 surgeries, Dr. Pollack. I have had discussions with him And he is in agreement. The current plan is to try to transfer her to a retirement facility, most likely less than a month. The purpose of the transfer is to help with pain control, meals, gait transfers to assist her in the next phase which would be another surgical procedure to her left hip. I have also had discussions with her daughter, Leila Shoemaker and she has also had discussions with the orthopedic surgeon in [place] as well.
[2022-10-28] MEDS: NS W/20 MEQ KCL 1,000 ML IV SCH (12:10)
[2022-10-28] MEDS: CYCLOBENZAPRINE 10 MG TABLET PO PRN ×2 (14:02→22:03)
[2022-10-28] MEDS: ATORVASTATIN 10 MG TABLET PO SCH (20:39)
[2022-10-29] MEDS: ACETAMINOPHEN 325 MG TABLET PO SCH ×6 (00:48→21:12)
[2022-10-29] MEDS: NS W/20 MEQ KCL 1,000 ML IV SCH (00:49)
[2022-10-29] MEDS: HYDROmorphone 0.5 MG/0.5 ML SYRINGE IVP PRN ×2 (01:16→09:17)
[2022-10-29] MEDS: oxyCODONE 5 MG TABLET PO SCH ×2 (05:35→08:17)
[2022-10-29] MEDS: PANTOPRAZOLE 40 MG TABLET PO SCH ×2 (08:16→21:10)
[2022-10-29] MEDS: ENOXAPARIN 40 MG/0.4 ML SYRINGE SUBQ SCH (08:16)
[2022-10-29] MEDS: CALCIUM CARBONATE CHEW 500 MG TABLET PO SCH (08:16)
[2022-10-29] MEDS: FUROSEMIDE 20 MG TABLET PO SCH ×2 (08:17→21:10)
[2022-10-29] MEDS: LOSARTAN 50 MG TABLET PO SCH (08:17)
[2022-10-29] MEDS: SODIUM CHLORIDE FLUSH 0.9% 10 ML SYRINGE IVP SCH ×3 (08:18→16:45)
[2022-10-29] MEDS: PROPRANOLOL 40 MG TABLET PO SCH ×2 (08:18→21:11)
[2022-10-29] MEDS: ASCORBIC ACID 500 MG TABLET PO SCH (08:18)
[2022-10-29] MEDS: CYCLOBENZAPRINE 10 MG TABLET PO PRN (09:17)
[2022-10-29] MEDS: SENNA 8.6 MG TABLET PO PRN (10:50)
[2022-10-29] MEDS: MORPHINE IR 15 MG TABLET PO SCH ×2 (12:59→18:07)
[2022-10-29] MEDS: CYCLOBENZAPRINE 10 MG TABLET PO SCH ×2 (13:32→21:11)
--- NOTE | 2022-10-29 13:51 | PROVIDER PROGRESS NOTE ---
Subjective - General Admit Date: 10/26/22 Procedure Date: 10/25/22 Post Op Days: 4 Procedure Performed: Closed reduction of dislocated left total hip arthroplasty - Review of Systems Wound/Incisions: positive: Healing well - Other Other Information/Narrative: Semi recumbent in bed, sleeping on my arrival Pleasant She reports intense pain overnight requiring IV narcotics for relief She has pain with movement but can occasionally find a position of comfort with current pain regimen No chest pain, dyspnea, nausea, emesis or constipation Objective - Patient Data Reviewed Vital Signs: Yes Vital Signs: Vital Signs x48h Temp Pulse Resp BP Pulse Ox 10/29/22 07:37 36.9 C 71 16 126/61 99 Intake & Output: Intake and Output Totals x24h 10/27/22 10/28/22 10/29/22 23:59 23:59 23:59 Intake Total 3086.25 3233.75 891.25 Output Total 4000 2700 650 Balance -913.75 533.75 241.25 - Lab Results Lab Results: 10/27/22 08:44 10/25/22 12:24 - Current Medications Current Medications: Current Medications Generic Name Dose Route Start Last Admin Trade Name Freq PRN Reason Stop Dose Admin Acetaminophen 650 mg 10/27/22 17:00 10/29/22 13:32 Acetaminophen 325 Mg Tablet PO 650 mg Q4HR MATTHEW Administration Ascorbic Acid 500 mg 10/27/22 09:00 10/29/22 08:18 Ascorbic Acid 500 Mg Tablet PO 500 mg DAILY MATTHEW Administration Atorvastatin Calcium 10 mg 10/26/22 21:00 10/28/22 20:39 Atorvastatin 10 Mg Tablet PO 10 mg QPM MATTHEW Administration Calcium Carbonate/Glycine 1,000 mg 10/27/22 09:00 10/29/22 08:16 Calcium Carbonate Chew 500 Mg Tablet PO 1,000 mg DAILY MATTHEW Administration Cyclobenzaprine HCl 5 mg 10/29/22 14:00 10/29/22 13:32 Cyclobenzaprine 10 Mg Tablet PO 5 mg TID MATTHEW Administration Enoxaparin Sodium 40 mg 10/26/22 09:00 10/29/22 08:16 Enoxaparin 40 Mg/0.4 Ml Syringe SUBQ 40 mg DAILY MATTHEW Administration Furosemide 20 mg 10/26/22 21:00 10/29/22 08:17 Furosemide 20 Mg Tablet PO 20 mg BID MATTHEW Administration Losartan Potassium 25 mg 10/27/22 09:00 10/29/22 08:17 Losartan 50 Mg Tablet PO 25 mg DAILY MATTHEW Administration Morphine Sulfate 15 mg 10/29/22 12:00 10/29/22 12:59 Morphine Ir 15 Mg Tablet PO 15 mg Q6HR MATTHEW Administration Pantoprazole Sodium 40 mg 10/26/22 21:00 10/29/22 08:16 Pantoprazole 40 Mg Tablet PO 40 mg BID MATTHEW Administration Propranolol HCl 40 mg 10/26/22 21:00 10/29/22 08:18 Propranolol 40 Mg Tablet PO 40 mg BID MATTHEW Administration Senna 8.6 mg 10/26/22 14:53 10/29/22 10:50 Senna 8.6 Mg Tablet PO 8.6 mg BID PRN Administration Constipation Sodium Chloride 10 ml 10/25/22 18:58 10/28/22 09:05 Sodium Chloride Flush 0.9% 10 Ml Syringe IVP 10 ml PRN PRN Administration NEEDED PER PROVIDER ORDERS Sodium Chloride 10 ml 10/26/22 01:00 10/29/22 08:18 Sodium Chloride Flush 0.9% 10 Ml Syringe IVP Not Given 0100,0900,1700 [facility] - Physical Exam Comments/Other: Pleasant, alert and oriented Left lower extremity is shortened and internally rotated Dressing is dry and intact without drainage Neurovascularly intact to the left lower extremity Impression/Plan - Problem List Problem List: 77-year-old female admitted to [facility] for 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 She had 2 revisions in August and September 2022 at [facility]. She underwent closed reduction of left hip dislocation on 10/25/2022 which was unsuccessful and she continues to have a left hip dislocation. Her pain continues to require IV narcotic medications in addition to oral pain medications. She continues to require inpatient admission for IV narcotic medication for pain management given hip dislocation. Her pain medications were adjusted today in attempt to quantify the additional narcotic need for appropriate pain control. Hopefully, she will then transition to an oral pain management. The plan is for discharge to a fpc facility. 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 It is likely she would benefit from a discharge to a fpc facility Plan: -Nonweightbearing to left lower extremity -Pain management with oral morphine 15 mg every 6 hours scheduled, IV morphine 1 mg every 4 hours as needed and 650 mg of acetaminophen scheduled, cyclobenzaprine every 8 hours scheduled -Citalopram 10 mg was added today - I may add Amitriptyline tomorrow - patient reports a bladder infection but no hives or anaphylaxis to Amitriptyline -Continue with a regular diet and bowel regimen, IV fluids discontinued -DVT prophylaxis with Lovenox 40 subcutaneous -Monitor blood pressure, normotensive today -Continue home medications -Physical therapy and Occupational Therapy following -Sponge baths for bathing, Mepilex dressing to remain in place -Surgical intervention is not anticipated at [facility]. She will follow-up outpatient with her orthopedic surgeon at [facility] with [facility] for further surgical intervention - Hospitalist consult for management of chronic medical comorbidities - Continue use of purewick catheter given mobility restrictions
[2022-10-29] MEDS: MORPHINE 2 MG/ML CARPUJECT IVP PRN ×2 (14:52→19:14)
[2022-10-29 15:21] LABS: BILIRUBIN,TOTAL 0.5 mg/dL (0.2-1.0); CALCIUM 8.6 mg/dL (8.5-10.3); CREATININE 0.6 mg/dL (0.4-1.0); POTASSIUM 3.4 mmol/L (3.5-5.0); TOTAL PROTEIN 5.9 g/dL (6.7-8.2)
[2022-10-29] MEDS: ATORVASTATIN 10 MG TABLET PO SCH (21:11)
[2022-10-30] MEDS: MORPHINE IR 15 MG TABLET PO SCH ×4 (00:20→17:54)
[2022-10-30] MEDS: SODIUM CHLORIDE FLUSH 0.9% 10 ML SYRINGE IVP SCH ×3 (00:23→17:54)
[2022-10-30] MEDS: ACETAMINOPHEN 325 MG TABLET PO SCH ×6 (01:12→21:59)
[2022-10-30] MEDS: MORPHINE 2 MG/ML CARPUJECT IVP PRN ×4 (05:02→22:02)
[2022-10-30] MEDS: CYCLOBENZAPRINE 10 MG TABLET PO SCH ×3 (05:25→21:59)
[2022-10-30] MEDS: ENOXAPARIN 40 MG/0.4 ML SYRINGE SUBQ SCH (09:18)
[2022-10-30] MEDS: CITALOPRAM 10 MG TABLET PO SCH ×2 (09:18→10:23)
[2022-10-30] MEDS: CALCIUM CARBONATE CHEW 500 MG TABLET PO SCH (09:18)
[2022-10-30] MEDS: FUROSEMIDE 20 MG TABLET PO SCH ×2 (09:20→22:00)
[2022-10-30] MEDS: PROPRANOLOL 40 MG TABLET PO SCH ×2 (09:20→21:59)
[2022-10-30] MEDS: PANTOPRAZOLE 40 MG TABLET PO SCH ×2 (09:20→22:00)
[2022-10-30] MEDS: ASCORBIC ACID 500 MG TABLET PO SCH (09:20)
[2022-10-30] MEDS: LOSARTAN 50 MG TABLET PO SCH (09:21)
--- NOTE | 2022-10-30 12:05 | PROVIDER PROGRESS NOTE ---
Subjective - General Admit Date: 10/26/22 Procedure Date: 10/25/22 Post Op Days: 5 Procedure Performed: Closed reduction of dislocated left total hip arthroplasty - Review of Systems Wound/Incisions: positive: Healing well - Other Other Information/Narrative: Sitting upright in bed, on the phone Awaiting lunch No chest pain, dyspnea, nausea, emesis or constipation Pain continues to be intense requiring IV morphine to control pain She reports pain worsened after physical therapy yesterday Objective - Patient Data Reviewed Vital Signs: Yes Vital Signs: Vital Signs x48h Temp Pulse Resp BP Pulse Ox 10/30/22 07:45 36.7 C 65 18 123/78 97 Intake & Output: Intake and Output Totals x24h 10/28/22 10/29/22 10/30/22 23:59 23:59 23:59 Intake Total 3233.75 2091.25 1160 Output Total 2700 1400 2000 Balance 533.75 691.25 -840 - Lab Results Lab Results: 10/27/22 08:44 10/29/22 15:04 Other Lab Results: Lab Results x24hrs 10/29/22 Range/Units 15:04 Sodium 132 L (135-145) mmol/L Potassium 3.4 L (3.5-5.0) mmol/L Chloride 91 L (101-111) mmol/L Carbon Dioxide 32 (21-32) mmol/L Anion Gap 9.0 (6-13) BUN 10 (6-20) mg/dL Creatinine 0.6 (0.4-1.0) mg/dL Estimated GFR (MDRD) 97 (>89) Glucose 130 H (70-100) mg/dL Calcium 8.6 (8.5-10.3) mg/dL Total Bilirubin 0.5 (0.2-1.0) mg/dL AST 27 (10-42) IU/L ALT 18 (10-60) IU/L Alkaline Phosphatase 78 (42-121) IU/L Total Protein 5.9 L (6.7-8.2) g/dL Albumin 3.0 L (3.2-5.5) g/dL Globulin 2.9 (2.1-4.2) g/dL Albumin/Globulin Ratio 1.0 (1.0-2.2) - Current Medications Current Medications: Current Medications Generic Name Dose Route Start Last Admin Trade Name Freq PRN Reason Stop Dose Admin Acetaminophen 650 mg 10/27/22 17:00 10/30/22 10:21 Acetaminophen 325 Mg Tablet PO 650 mg Q4HR MATTHEW Administration Ascorbic Acid 500 mg 10/27/22 09:00 10/30/22 09:20 Ascorbic Acid 500 Mg Tablet PO 500 mg DAILY MATTHEW Administration Atorvastatin Calcium 10 mg 10/26/22 21:00 10/29/22 21:11 Atorvastatin 10 Mg Tablet PO 10 mg QPM MATTHEW Administration Calcium Carbonate/Glycine 1,000 mg 10/27/22 09:00 10/30/22 09:18 Calcium Carbonate Chew 500 Mg Tablet PO 1,000 mg DAILY MATTHEW Administration Citalopram Hydrobromide 10 mg 10/30/22 09:00 10/30/22 10:23 Citalopram 10 Mg Tablet PO 10 mg DAILY MATTHEW Administration Cyclobenzaprine HCl 5 mg 10/29/22 14:00 10/30/22 05:25 Cyclobenzaprine 10 Mg Tablet PO 5 mg TID MATTHEW Administration Enoxaparin Sodium 40 mg 10/26/22 09:00 10/30/22 09:18 Enoxaparin 40 Mg/0.4 Ml Syringe SUBQ 40 mg DAILY MATTHEW Administration Furosemide 20 mg 10/26/22 21:00 10/30/22 09:20 Furosemide 20 Mg Tablet PO 20 mg BID MATTHEW Administration Losartan Potassium 25 mg 10/27/22 09:00 10/30/22 09:21 Losartan 50 Mg Tablet PO 25 mg DAILY MATTHEW Administration Morphine Sulfate 1 mg 10/29/22 11:34 10/30/22 10:23 Morphine 2 Mg/Ml Carpuject IVP 1 mg Q4HR PRN Administration Severe Pain (Level 7-10) Pantoprazole Sodium 40 mg 10/26/22 21:00 10/30/22 09:20 Pantoprazole 40 Mg Tablet PO 40 mg BID MATTHEW Administration Propranolol HCl 40 mg 10/26/22 21:00 10/30/22 09:20 Propranolol 40 Mg Tablet PO 40 mg BID MATTHEW Administration Senna 8.6 mg 10/26/22 14:53 10/29/22 10:50 Senna 8.6 Mg Tablet PO 8.6 mg BID PRN Administration Constipation Sodium Chloride 10 ml 10/25/22 18:58 10/28/22 09:05 Sodium Chloride Flush 0.9% 10 Ml Syringe IVP 10 ml PRN PRN Administration NEEDED PER PROVIDER ORDERS Sodium Chloride 10 ml 10/26/22 01:00 10/30/22 05:03 Sodium Chloride Flush 0.9% 10 Ml Syringe IVP 10 ml 0100,0900,1700 [facility] Administration - Physical Exam Comments/Other: Alert and oriented x3 Pleasant, mildly comfortable without movement Neurovascularly intact to the left lower extremity Dressing is dry and intact without drainage Foot motion in tact Impression/Plan - Problem List Problem List: 77-year-old female admitted to [facility] for 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 She had 2 revisions in August and September 2022 at [facility]. She underwent closed reduction of left hip dislocation on 10/25/2022 which was unsuccessful and she continues to have a left hip dislocation. Her pain continues to require IV narcotic medications in addition to oral pain medications. She continues to require inpatient admission for IV narcotic medication for pain management given hip dislocation. Her oral pain regimen was increased today given continued pain and need for IV morphine every 4 hours. The plan is for discharge to a snf facility on an oral pain regimen. 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 It is likely she would benefit from a discharge to a snf facility. Plan: -Nonweightbearing to left lower extremity -Pain management with oral morphine 30 mg every 6 hours scheduled, IV morphine 1 mg every 4 hours as needed and 650 mg of acetaminophen scheduled, cyclobenzapri ne every 8 hours scheduled -Citalopram 10 mg was added today - Potassium chloride 10 meq added today for oral potassium repletion - Consider adding Amitriptyline and tramadol as patient denies anaphylaxis, hives or dyspnea with either medication -Continue with a regular diet and bowel regimen, IV fluids discontinued -DVT prophylaxis with Lovenox 40 subcutaneous -Monitor blood pressure, normotensive today -Continue home medications -Physical therapy and Occupational Therapy following -Sponge baths for bathing, Mepilex dressing to remain in place -Surgical intervention is not anticipated at [facility]. She will follow-up outpatient with her orthopedic surgeon at [place] for with [facility] for further surgical intervention - Hospitalist consult for management of chronic medical comorbidities - Continue use of purewick catheter given mobility restrictions
--- NOTE | 2022-10-30 12:07 | Discharge Plan ---
"Discharge Plan for SNF / [facility] - Discharge Plan And Transition Orders Problem Reviewed?: Yes Disposition: 03 SNF DC/Xfer Condition: Stable Allergies and Adverse Reactions: Allergies Allergy/AdvReac Type Severity Reaction Status Date / Time amitriptyline Allergy Unknown Verified 10/25/22 12:17 beclomethasone Allergy Unknown Verified 10/25/22 12:17 gabapentin Allergy Respiratory Verified 10/25/22 12:17 hydroxychloroquine Allergy Unknown Verified 10/25/22 12:17 meperidine [From Demerol] Allergy Unknown Verified 10/25/22 12:17 Zandida-AKM-VeE Reductase Allergy Unknown Verified 10/25/22 12:17 Inhibitor tramadol Allergy Unknown Verified 10/25/22 12:17 zolpidem [From Ambien] Allergy Unknown Verified 10/25/22 12:17 Health Concerns: You were here for a 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 You underwent closed reduction of the left hip dislocation on 10/25/2022 which was unsuccessful. You were then admitted to observation and since your pain continued to be uncontrolled, you were admitted to the hospital for pain management with IV narcotics. After several days of titration of your medications, you became ready for discharge to a prison facility on an oral pain regimen. Plan of Treatment: Your treatment plan included oral and IV pain medications to manage your pain. Eventually you were transitioned to an pain regimen entirely by mouth. Your home medications were given during your stay. You were given flexeril three times a day which is a muscle relaxant. This can be taken as needed when you return home. You were given potassium chloride to bring your low potassium level back to the normal range. You were started on Celexa 10 mg daily which is an SSRI for chcf pain control You were given lovenox for blood clot prevention and switched to eliquis which is a by mouth medication to prevent blood clots given your limited mobility due to the left hip dislocation You are being discharged to a prison facility for strength, conditioning and mobility work to your right leg to increase your mobility and function about the right leg. This will help you move about your home while awaiting surgery on the left hip. You are not to put weight on the left leg Your lasix (Furosemide) was decreased to every 48 hours at hospitalist physician recommendation You were found to have low magnesium and restarted on your home dosage of magnesium oxide There was a concern about your heart rhythm and an EKG was performed which did not show atrial fibrillation. Please follow up with your primary care provider Care Goals: Pain control of recurrent left hip arthroplasty dislocation until you can follow up with your orthopedic surgeon at [facility] Strengthening of the right lower extremity with physical therapy to improve your function and mobility Assessment: I discussed this with the patient who verbalized understanding of the treatment in the hospital and necessary follow up. - SNF / [facility] Transition Orders Admit to (Facility): [facility] Under the care of (Name): Dr. 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 Notify PCP of admission and forward orders to primary provider for signature. Other Notification Orders: Call PCP immediately if patient develops dyspnea, chest pain/tightness or edema. House Bowel Program: Yes Additional Bowel Program Orders: If no BM after 2 days, nurse may give M.O.M. 30ml PO PRN and/or ducolax Supp 1 OH and/or MICHELLE 250mg P.O., and/or senna 1-2 tabs PO. On day 3 nurse may give repeat above order until residents constipation is resolved. Treatments & Other Orders: Pain management for recurrent left total hip arthroplasty dislocation. Mepelex dressing to remain in place for 3-5 days after discharge. Sponge bathing is permitted. Dermabond will fall off on its own, it does not need to be removed. Furosemide every 48 hours per hospitalist recommendation Orthopedic Orders: Non weight bearing to the left lower extremity Medication Orders: PLEASE REFER TO THE DISCHARGE MEDICATION LIST. - Medications New Prescriptions: Citalopram [CeleXA] 10 mg PO DAILY #5 tab Apixaban [Eliquis] 2.5 mg PO BID #10 tablet Morphine Ir [Ms Ir] 30 mg PO Q6H #30 tablet - Diet Texture: Regular - Therapies | Activity Therapy: Evaluation | Treat if indicated: PT, OT Rehabilitation Potential: Maximize functional status Activity: Additional Comments (Non weight bearing to left lower extremity Full weight bearing to right lower extremity) Weight Bearing: No Weight (To left lower extremity) Extremities: NWBLLE Assistance Devices: Wheelchair, Walker Follow Up: Dr. Roshni Daley, Orthopedic surgeon at [facility] within 1-2 weeks of discharge No follow up needed with [facility]"
[2022-10-30] MEDS: POTASSIUM CHLORIDE 10 MEQ CAPSULE PO SCH (12:22)
--- NOTE | 2022-10-30 12:26 | DISCHARGE SUMMARY ---
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 Pain management for recurrent dislocation Hypertension Gastroesophageal reflux disease Hypercholesterolemia Restless leg syndrome Arrythmia secondary to hypomagnesemia Discharge Diagnoses with Status of Each Condition: 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 - Dislocated, stable, awaiting follow up with Orthopedic surgeon at [place] Pain management for recurrent dislocation - stable on oral regimen of morphine Hypertension - stable on home medications Gastroesophageal reflux disease - stable on pantoprazole Hypercholesterolemia - stable Restless leg syndrome - stable Arrythmia secondary to hypomagnesemia - stable in normal sinus rhythm per hospitalist physician, resumed home magnesium - HPI History of Present Illness: 77-year-old woman that presented to the emergency room with a painful left hip after getting up off of the toilet seat when she felt a pop to her left hip. She has had primary in 2 revision left hip arthroplasties in August and September of 2022. The surgeries were performed at [facility] by Dr. Daley. She had a constrained acetabular liner placed at the time of the first revision surgery in August, dislocated her hip about a month later. She had a second revision in the constrained liner which was apparently defective was removed and conventional hip socket remains in place. Unfortunately she has dislocated her left total hip arthroplasty approximately 4 times in the 9 days prior to admission. An attempt at closed reduction was done by our emergency room physicians but was unsuccessful. Orthopedic surgery saw the patient because of inability to reduce the left hip. She was sedated but alert and denied a head stroke. Dr. Reyes spoke to her daughter over the phone who stated that her memory is not always accurate. The patient does have a history of systemic lupus erythematosus. She has low body mass index. - CONSULTS | PROCEDURES Consultations: Internal medicine hospitalist physician Procedures: Closed reduction of recurrent left total hip arthroplasty under anesthesia, unsuccessful, 10/25/[address] Reyes EKG -11/01/2022 showed normal sinus rhythm, rate 68, left atrial enlargement, frequent PACs. EKG also showed LVH with strain pattern. No atrial fibrillation been seen on telemetry. - HOSPITAL COURSE Hospital Course: After unsuccessful closed reduction of left total hip arthroplasty, she was admitted under observational status for pain control. Her wound was oozing blood during the closed reduction and so dermabond and a mepelex dressing were used to cover her most recent surgical wound. She required IV narcotic analgesics every 2 hours and pain was not controlled with oral regimen. She was admitted on 10/26/2022 for pain management. During her stay her pain medications were adjusted to achieve appropriate pain control on an oral regimen. Her home medications were resumed. She was found to have a potassium of 3.4 on 10/29/2022 and started on oral repletion with 10 mEQ per day. She was also started on celexa 10 mg daily for snf pain control. On 10/31/2022 she was accepted to [facility]. On 11/01/2022 her nurse reported irregular heart rate and a consult to the internal medicine physician was completed. Telemetry was ordered along with basic lab work showing hypomagnesemia. Her EKG showed normal sinus rhythm without atrial fibrialation and the hospitalist physician recommended continuing plan for discharge that day. Per hospitalist, her possible arrythmia was stable. Her pain continued to be controlled and she was discharged to [facility] on 11/01/2022. - ALLERGIES Allergies/Adverse Reactions: Allergies Allergy/AdvReac Type Severity Reaction Status Date / Time amitriptyline Allergy Unknown Verified 10/25/22 12:17 beclomethasone Allergy Unknown Verified 10/25/22 12:17 gabapentin Allergy Respiratory Verified 10/25/22 12:17 hydroxychloroquine Allergy Unknown Verified 10/25/22 12:17 meperidine [From Demerol] Allergy Unknown Verified 10/25/22 12:17 [id number]-[id number]-TgM Reductase Allergy Unknown Verified 10/25/22 12:17 Inhibitor tramadol Allergy Unknown Verified 10/25/22 12:17 zolpidem [From Ambien] Allergy Unknown Verified 10/25/22 12:17 - MEDICATIONS Home Medications: Ambulatory Orders Medication Instructions Recorded Confirmed Carbidopa/Levodopa 1 tab PO 5XD PRN 06/17/20 10/26/22 [Carbidopa-Levodopa 25-100 Tab] Butalbital/Acetaminophen 1 tab PO Q4HR PRN 11/22/20 10/26/22 [Butalbital-Acetaminophn 50-325] Irbesartan [Avapro] 75 mg PO DAILY 12/02/20 10/26/22 Rosuvastatin Calcium [Crestor] 5 mg PO DAILY 12/02/20 10/26/22 Albuterol Sulfate [Proair 1 puffs IH Q4HR PRN 08/21/21 10/26/22 Respiclick] Ezetimibe [Zetia] 10 mg PO DAILY 08/21/21 10/26/22 Pantoprazole Sodium 40 mg PO BID 08/21/21 10/26/22 Ascorbic Acid 1 tab PO DAILY 10/26/22 10/26/22 Calcium Carbonate [Calcium] 1 tab PO DAILY 10/26/22 10/26/22 Cyclobenzaprine HCl 1 tab PO TID PRN 10/26/22 10/26/22 Magnesium Oxide 1 tab PO DAILY 10/26/22 10/26/22 Ondansetron HCl 1 tab PO Q6HR PRN 10/26/22 10/26/22 Propranolol [Inderal] 1 tab PO BID 10/26/22 10/26/22 Senna [Senokot] 1 tab PO BID PRN 10/26/22 10/26/22 Zinc Gluconate [Zinc] 1 tab PO DAILY 10/26/22 10/26/22 diphenhydrAMINE [Benadryl] 1 cap PO HS PRN 10/26/22 10/26/22 polyethylene glycoL 3350 [Miralax] 8.5 - 17 gm PO DAILY PRN 10/26/22 10/26/22 Apixaban [Eliquis] 2.5 mg PO BID #10 tablet 10/30/22 Citalopram [CeleXA] 10 mg PO DAILY #5 tab 10/30/22 Furosemide [Lasix] 20 mg PO UD #0 11/01/22 10/26/22 Morphine Ir [Ms Ir] 30 mg PO Q6H #30 tablet 11/01/22 Morphine Ir [Ms Ir] 30 mg PO Q6HR tab 11/01/22 Home Medications Other | Comments: Home furosemide should be given once every 48 hours instead of twice daily - PHYSICAL EXAM AT DISCHARGE General Appearance: positive: No acute distress Physical Exam Other/Comments: 77 year old female, alert, lying in bed, no acute distress Neurovascularly intact to the left lower extremity Dressing is dry and intact to left hip without ecchymosis or erythema Left leg is shortened without rotation - LABS Result Diagrams: 11/01/22 06:18 11/01/22 11:38 - FOLLOW UP Follow Up: Dr Daley of [facility] in [place], Orthopedic Surgeon Primary care provider CHANCE Laureano for chronic medical comorbidities - TIME SPENT Time Spent in Discharge (Minutes): 40"
--- NOTE | 2022-10-30 16:23 | CONSULTATION NOTE ---
Referring Provider Name of Referring Provider:: JONATHAN Dominguez Consult Date: 10/30/22 Chief Complaint - Chief Complaint Chief Complaint: pain from dislocated hip History of Present Illness - Admitted From Admitted From:: OR/PACU p reduction attempt - History Obtained From Records Reviewed: [facility] History obtained from: JONATHAN Aguilar Exam Limitations: none - History of Present Illness HPI Comment/Other: Exceedingly pleasant alert female who has had complications of a left hip replacement that was done in 2019. She has had dislocations that resulted into primary revisions. She had a constrained acetabular liner placed at the time of the first revision in August 2022. She dislocated that about a month later and then had a second revision in the constrained liner. The liner was defective and removed in a conventional hip socket remained in place. She is dislocated her left total hip arthroplasty approximately 4 times in the last 9 days. On [place] November 22 this was her fourth time. She had gotten off the toilet seat and felt a pop to her left hip and came to the ER. She went to the operating room on October 25 and had 4 attempted closed reduction maneuvers to pop her hip back in place and they were unsuccessful. She has been admitted for pain management. Pain is agonizing and it does not help with the patient has multiple allergies. Unfortunately she cannot remember why she is allergic to some of the medicines that are on her list and that includes Elavil, gabapentin, meperidine, tramadol. The orthopedic surgeon is out of town this weekend, and his physician registered sales assistant is rounding on the patient and is asked that I advise her as she adjusts opioids to help this patient achieve adequate pain control. When she was immediately admitted she was receiving Dilaudid half a milligram IVP every 2 hours as needed. And looking at the medication administration record she was getting it pretty regularly every 4 hours because of pain. Oxycodone po was added in an effort to see if there was a way to reduce the amount of IV Dilaudid she was getting. oxycodone 5 mg was every 6 hours as needed. Yesterday morphine immediate release was started and oxycodone was discontinued in an effort to try and find something that will work to control her pain so she can leave the hospital. MS IR is 15 mg every 6 hours on a scheduled dose. And she is on morphine 1 mg IV push every 4 hours. Between yesterday's 3 PM starting of the schedule and now, she has received 5 doses of 1 mg IV push. The patient states that the immediate release morphine is not lasting long enough. She needs the 1 mg IV push for breakthrough pain. She cannot take tramadol, and she is worried about becoming addicted. JONATHAN Aguilar and myself had a long discussion today as we thought about the future for this poor unfortunate lady. She is going to have to go through another hip revision if not a complete hip replacement or a Girdlestone procedure. She is going to be in pain for quite some time. So she was started on SSRI last night, and Elavil to help her sleep, but she says she is allergic to Elavil. History - Past Medical History Cardiovascular: reports: Hypertension Respiratory: reports: Pneumonia Neuro: reports: Other Endocrine/Autoimmune: reports: Systemic lupus erythematosus GI: reports: Colon polyps : reports: None HEENT: reports: Chronic vision loss Psych: reports: Claustrophobia Musculoskeletal: reports: Osteoarthritis, Fibromyalgia, Chronic back pain, Other Derm: reports: None MRSA Hx?: No - Past Surgical History General: reports: Appendectomy, Colonoscopy Ortho: reports: Hip replacement, Spine surgery /SURGICAL SCRUB TECHNOLOGIST: reports: Other HEENT: reports: Tonsil/Adenoidectomy - POLST Patient has POLST: No Meds/Allgy - Home Medications Home Medications: Ambulatory Orders Medication Instructions Recorded Confirmed Carbidopa/Levodopa 1 tab PO 5XD PRN 06/17/20 10/26/22 [Carbidopa-Levodopa 25-100 Tab] Butalbital/Acetaminophen 1 tab PO Q4HR PRN 11/22/20 10/26/22 [Butalbital-Acetaminophn 50-325] Irbesartan [Avapro] 75 mg PO DAILY 12/02/20 10/26/22 Rosuvastatin Calcium [Crestor] 5 mg PO DAILY 12/02/20 10/26/22 Albuterol Sulfate [Proair 1 puffs IH Q4HR PRN 08/21/21 10/26/22 Respiclick] Ezetimibe [Zetia] 10 mg PO DAILY 08/21/21 10/26/22 Furosemide [Lasix] 20 mg PO BID 08/21/21 10/26/22 Pantoprazole Sodium 40 mg PO BID 08/21/21 10/26/22 Ascorbic Acid 1 tab PO DAILY 10/26/22 10/26/22 Calcium Carbonate [Calcium] 1 tab PO DAILY 10/26/22 10/26/22 Cyclobenzaprine HCl 1 tab PO TID PRN 10/26/22 10/26/22 Magnesium Oxide 1 tab PO DAILY 10/26/22 10/26/22 Ondansetron HCl 1 tab PO Q6HR PRN 10/26/22 10/26/22 Propranolol [Inderal] 1 tab PO BID 10/26/22 10/26/22 Senna [Senokot] 1 tab PO BID PRN 10/26/22 10/26/22 Zinc Gluconate [Zinc] 1 tab PO DAILY 10/26/22 10/26/22 diphenhydrAMINE [Benadryl] 1 cap PO HS PRN 10/26/22 10/26/22 polyethylene glycoL 3350 [Miralax] 8.5 - 17 gm PO DAILY PRN 10/26/22 10/26/22 Apixaban [Eliquis] 2.5 mg PO BID #10 tablet 10/30/22 Citalopram [CeleXA] 10 mg PO DAILY #5 tab 10/30/22 Morphine Ir [Ms Ir] 30 mg PO Q6HR #30 tab 10/30/22 - Allergies Allergies/Adverse Reactions: Allergies Allergy/AdvReac Type Severity Reaction Status Date / Time amitriptyline Allergy Unknown Verified 10/25/22 12:17 beclomethasone Allergy Unknown Verified 10/25/22 12:17 gabapentin Allergy Respiratory Verified 10/25/22 12:17 hydroxychloroquine Allergy Unknown Verified 10/25/22 12:17 meperidine [From Demerol] Allergy Unknown Verified 10/25/22 12:17 Liolmtv-PTF-FxZ Reductase Allergy Unknown Verified 10/25/22 12:17 Inhibitor tramadol Allergy Unknown Verified 10/25/22 12:17 zolpidem [From Ambien] Allergy Unknown Verified 10/25/22 12:17 Review of Systems - Constitutional Constitutional: reports: Fatigue - Eyes Eyes: denies: Amaurosis, Blurred vision, Vision loss - Ears, Nose & Throat Ears, Nose & Throat: denies: Ear pain, Vertigo, Nosebleeds, Nasal obstruction, Nasal congestion, Postnasal drainage - Cardiovascular Cariovascular: denies: Palpitations, Chest pain - Respiratory Respiratory: denies: Cough, Sputum production, Wheezing - Gastrointestinal Gastrointestinal: denies: Abdominal distention, Constipation, Change in bowel habits - Genitourinary Genitourinary: denies: Dysuria, Urgency - Musculoskeletal Musculoskeletal: reports: Muscle pain, Back pain, Muscle aches, Stiffness, Joint pain - Integumentary Integumentary: denies: Rash - Neurological Neurological: reports: Memory problems. denies: General weakness, Focal weakness, Headache - Psychiatric Psychiatric: reports: Depression, Anxiety (with this problem) - Hematologic/Lymphatic Hematologic/Lymphatic: reports: Anemia Exam - Vital Signs Reviewed Vital Signs: Yes Vital Signs: Vital Signs x48h Temp Pulse Resp BP Pulse Ox 10/30/22 15:32 36.7 C 54 L 20 117/48 L 96 Conclusion/Plan - Problem List (1) Pain due to any device, implant or graft Conclusion/Plan: At this time, I agree with the measured treatment response. The most I would recommend at this time is to double her morphine immediate release tablet to 30 mg 4 times a day. Continue IV push morphine every 4 hours as needed for breakthrough pain. Adjust the immediate release to what will eventually cover her to let her get out of the hospital. Pharmacy and I have discussed that she would be a candidate for long-acting opioids such as MS Contin, but is my understanding we are not allowed to prescribe long-acting opioids unless it is for cancer or terminally ill patients. I will watch for usage of medication over the course of today. And will discuss with PA ameena of tomorrow about any changes we may need to make. In the meantime the patient will continue to work with physical therapy tomorrow and work on strengthening and mobility maneuvers to allow her to use the unaffected leg and body. She is going to have to be nonweightbearing on the affected hip. She will require aggressive teaching to keep her safe and not have her fall Qualifiers: Encounter type: initial encounter Qualified Code(s): T85.848A - Pain due to other internal prosthetic devices, implants and grafts, initial encounter - Lab Results Lab results reviewed: Yes Fish Bones: 10/27/22 08:44 10/29/22 15:04
[2022-10-30] MEDS: ATORVASTATIN 10 MG TABLET PO SCH (21:59)
[2022-10-31] MEDS: MORPHINE IR 15 MG TABLET PO SCH ×4 (00:56→17:25)
[2022-10-31] MEDS: ACETAMINOPHEN 325 MG TABLET PO SCH ×6 (00:56→21:09)
[2022-10-31] MEDS: SODIUM CHLORIDE FLUSH 0.9% 10 ML SYRINGE IVP SCH ×3 (00:57→17:26)
[2022-10-31] MEDS: CYCLOBENZAPRINE 10 MG TABLET PO SCH ×3 (05:47→21:10)
[2022-10-31 08:16] LABS: BASOPHILS # (AUTO) 0.1 10^3/uL (0.0-0.1); BASOPHILS % (AUTO) 0.6 %; EOSINOPHILS % (AUTO) 10.1 %; HCT - HEMATOCRIT 29.2 % (37.0-47.0); HGB - HEMOGLOBIN 9.4 g/dL (12.0-16.0); LYMPHOCYTES # (AUTO) 1.4 10^3/uL (1.5-3.5); LYMPHOCYTES % (AUTO) 13.5 %; MEAN CORPUSCULAR HEMOGLOBIN 30.8 pg (27.0-31.0); MEAN CORPUSCULAR HGB CONC 32.2 g/dL (32.0-36.0); MEAN CORPUSCULAR VOLUME 95.7 fL (81.0-99.0); MONOCYTES # (AUTO) 1.3 10^3/uL (0.0-1.0); MONOCYTES % (AUTO) 12.8 %; NEUTROPHILS # (AUTO) 6.3 10^3/uL (1.5-6.6); NEUTROPHILS % (AUTO) 62.5 %; PLT - PLATELET COUNT 266 10^3/uL (130-450); RED BLOOD COUNT 3.05 10^6/uL (4.20-5.40); RED CELL DISTRIBUTION WIDTH 15.3 % (12.0-15.0)
[2022-10-31 08:20] LABS: SLIDE REVIEW? Indicated
[2022-10-31] MEDS: POTASSIUM CHLORIDE 10 MEQ CAPSULE PO SCH (08:29)
[2022-10-31] MEDS: LOSARTAN 50 MG TABLET PO SCH (08:30)
[2022-10-31] MEDS: PROPRANOLOL 40 MG TABLET PO SCH ×2 (08:30→21:10)
[2022-10-31] MEDS: CALCIUM CARBONATE CHEW 500 MG TABLET PO SCH (08:30)
[2022-10-31] MEDS: FUROSEMIDE 20 MG TABLET PO SCH ×2 (08:30→21:10)
[2022-10-31] MEDS: ENOXAPARIN 40 MG/0.4 ML SYRINGE SUBQ SCH (08:30)
[2022-10-31] MEDS: ASCORBIC ACID 500 MG TABLET PO SCH (08:30)
[2022-10-31] MEDS: PANTOPRAZOLE 40 MG TABLET PO SCH ×2 (08:30→21:09)
[2022-10-31] MEDS: CITALOPRAM 10 MG TABLET PO SCH (08:30)
[2022-10-31 09:43] LABS: DIFFERENTIAL COMMENT MANUAL=AUTO DIFF; PLATELET ESTIMATE, MANUAL NORMAL (130-450,000) (NORMAL); PLATELET MORPHOLOGY NORMAL APPEARANCE (NORMAL); WBC MORPHOLOGY (MULTIPLE) NORMAL APPEARANCE (NORMAL)
[2022-10-31] MEDS: SENNA 8.6 MG TABLET PO PRN (10:29)
--- NOTE | 2022-10-31 15:42 | PROVIDER PROGRESS NOTE ---
Subjective - General Admit Date: 10/26/22 Procedure Date: 10/25/22 Post Op Days: 6 Procedure Performed: Closed reduction of dislocated left total hip arthroplasty - Other Other Information/Narrative: Lying recumbent in bed, nursing staff at bedside She denies chest pain, nausea, vomiting, shortness of breath She continues to have a good appetite She reports better pain control overnight with new morphine dosage orally Objective - Patient Data Reviewed Vital Signs: Yes Vital Signs: Vital Signs x48h Temp Pulse Resp BP Pulse Ox 10/31/22 15:34 36.8 C 54 L 16 100/51 L 98 10/31/22 08:00 36.7 C 68 18 103/56 L 96 Intake & Output: Intake and Output Totals x24h 10/29/22 10/30/22 10/31/22 23:59 23:59 23:59 Intake Total 2091.25 1740 550 Output Total 1400 2150 750 Balance 691.25 -410 -200 - Lab Results Lab Results: 10/31/22 08:04 10/29/22 15:04 Other Lab Results: Lab Results x24hrs 10/31/22 10/31/22 Range/Units 11:00 08:04 WBC 10.0 (4.8-10.8) x10^3/uL RBC 3.05 L (4.20-5.40) 10^6/uL Hgb 9.4 L (12.0-16.0) g/dL Hct 29.2 L (37.0-47.0) % MCV 95.7 (81.0-99.0) fL MCH 30.8 (27.0-31.0) pg MCHC 32.2 (32.0-36.0) g/dL RDW 15.3 H (12.0-15.0) % Plt Count 266 (130-450) 10^3/uL MPV 11.0 H (7.9-10.8) fL Neut # (Auto) 6.3 (1.5-6.6) 10^3/uL Lymph # (Auto) 1.4 L (1.5-3.5) 10^3/uL [place] # (Auto) 1.3 H (0.0-1.0) 10^3/uL Eos # (Auto) 1.0 H (0.0-0.7) 10^3/uL Baso # (Auto) 0.1 (0.0-0.1) 10^3/uL Absolute Nucleated RBC 0.00 x10^3/uL Band Neuts % (Manual) Not Reportable Abnorm Lymph % (Manual) Not Reportable Nucleated RBC % 0.0 /100WBC Neutrophils # (Manual) Not Reportable Lymphocytes # (Manual) Not Reportable Monocytes # (Manual) Not Reportable Eosinophils # (Manual) Not Reportable Basophils # (Manual) Not Reportable Differential Comment MANUAL=AUTO DIFF Manual Slide Review Indicated WBC Morphology NORMAL APPEARANCE (NORMAL) Platelet Estimate NORMAL (130-450,000) (NORMAL) Platelet Morphology NORMAL APPEARANCE (NORMAL) RBC Morph Micro Appear 1+ POLYCHROMASIA (NORMAL) SARS-CoV-2 (PCR) NOT DETECTED - Current Medications Current Medications: Current Medications Generic Name Dose Route Start Last Admin Trade Name Freq PRN Reason Stop Dose Admin Acetaminophen 650 mg 10/27/22 17:00 10/31/22 14:05 Acetaminophen 325 Mg Tablet PO 650 mg Q4HR MATTHEW Administration Ascorbic Acid 500 mg 10/27/22 09:00 10/31/22 08:30 Ascorbic Acid 500 Mg Tablet PO 500 mg DAILY MATTHEW Administration Atorvastatin Calcium 10 mg 10/26/22 21:00 10/30/22 21:59 Atorvastatin 10 Mg Tablet PO 10 mg QPM MATTHEW Administration Calcium Carbonate/Glycine 1,000 mg 10/27/22 09:00 10/31/22 08:30 Calcium Carbonate Chew 500 Mg Tablet PO 1,000 mg DAILY MATTHEW Administration Citalopram Hydrobromide 10 mg 10/30/22 09:00 10/31/22 08:30 Citalopram 10 Mg Tablet PO 10 mg DAILY MATTHEW Administration Cyclobenzaprine HCl 5 mg 10/29/22 14:00 10/31/22 14:04 Cyclobenzaprine 10 Mg Tablet PO 5 mg TID MATTHEW Administration Enoxaparin Sodium 40 mg 10/26/22 09:00 10/31/22 08:30 Enoxaparin 40 Mg/0.4 Ml Syringe SUBQ 40 mg DAILY MATTHEW Administration Furosemide 20 mg 10/26/22 21:00 10/31/22 08:30 Furosemide 20 Mg Tablet PO 20 mg BID MATTHEW Administration Losartan Potassium 25 mg 10/27/22 09:00 10/31/22 08:30 Losartan 50 Mg Tablet PO 25 mg DAILY MATTHEW Administration Morphine Sulfate 1 mg 10/29/22 11:34 10/30/22 22:02 Morphine 2 Mg/Ml Carpuject IVP 1 mg Q4HR PRN Administration Severe Pain (Level 7-10) Morphine Sulfate 30 mg 10/30/22 12:00 10/31/22 12:42 Morphine Ir 15 Mg Tablet PO 30 mg Q6HR MATTHEW Administration Pantoprazole Sodium 40 mg 10/26/22 21:00 10/31/22 08:30 Pantoprazole 40 Mg Tablet PO 40 mg BID MATTHEW Administration Potassium Chloride 10 meq 10/30/22 12:00 10/31/22 08:29 Potassium Chloride 10 Meq Capsule PO 10 meq DAILYWM MATTHEW Administration Propranolol HCl 40 mg 10/26/22 21:00 10/31/22 08:30 Propranolol 40 Mg Tablet PO 40 mg BID MATTHEW Administration Senna 8.6 mg 10/26/22 14:53 10/31/22 10:29 Senna 8.6 Mg Tablet PO 8.6 mg BID PRN Administration Constipation Sodium Chloride 10 ml 10/25/22 18:58 10/28/22 09:05 Sodium Chloride Flush 0.9% 10 Ml Syringe IVP 10 ml PRN PRN Administration NEEDED PER PROVIDER ORDERS Sodium Chloride 10 ml 10/26/22 01:00 10/31/22 08:36 Sodium Chloride Flush 0.9% 10 Ml Syringe IVP 10 ml 0100,0900,1700 [facility] Administration - Physical Exam Comments/Other: 77-year-old female alert and oriented x3, no acute distress Left lower extremity is shortened without rotation. Neurovascular intact to the left lower extremity. 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 She had 2 revisions in August and September 2022 at [facility]. She underwent closed reduction of left hip dislocation on 10/25/2022 which was unsuccessful and she continues to have a left hip dislocation. Her pain control has improved with oral pain regimen. She only required IV morphine one time overnight. The plan is for discharge to a detention facility on an oral pain regimen. 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 It is likely she would benefit from a discharge to a detention facility. She had decreased output from PureWick catheter and required straight catheter insertion today. Plan: -Nonweightbearing to left lower extremity -Pain management with oral morphine 30 mg every 6 hours scheduled, IV morphine 1 mg every 4 hours as needed and 650 mg of acetaminophen scheduled, cyclobenzaprine every 8 hours scheduled -Citalopram 10 mg - Potassium chloride 10 meq added today for oral potassium repletion - May consider adding Amitriptyline and tramadol as patient denies anaphylaxis, hives or dyspnea with either medication -Continue with a regular diet and bowel regimen -DVT prophylaxis with Lovenox 40 subcutaneous, this will be transitioned to eliquis for discharge. CBC ordered daily -Physical therapy and Occupational Therapy following -Sponge baths for bathing, Mepilex dressing to remain in place -Surgical intervention is not anticipated at [facility]. She will follow-up outpatient with her orthopedic surgeon at [facility] with [facility] for further surgical intervention - Hospitalist consult for management of chronic medical comorbidities - Continue use of purewick catheter given mobility restrictions - Discharge is anticipated for tomorrow 11/01/2022 at 13:00 per social work note
[2022-10-31] MEDS: ATORVASTATIN 10 MG TABLET PO SCH (21:09)
[2022-11-01] MEDS: ACETAMINOPHEN 325 MG TABLET PO SCH ×4 (00:57→13:14)
[2022-11-01] MEDS: MORPHINE IR 15 MG TABLET PO SCH ×3 (00:57→11:57)
[2022-11-01] MEDS: SODIUM CHLORIDE FLUSH 0.9% 10 ML SYRINGE IVP SCH ×2 (00:58→09:12)
[2022-11-01 06:46] LABS: BASOPHILS # (AUTO) 0.1 10^3/uL (0.0-0.1); BASOPHILS % (AUTO) 0.8 %; EOSINOPHILS # (AUTO) 0.7 10^3/uL (0.0-0.7); EOSINOPHILS % (AUTO) 7.6 %; HGB - HEMOGLOBIN 9.8 g/dL (12.0-16.0); LYMPHOCYTES # (AUTO) 1.3 10^3/uL (1.5-3.5); MEAN CORPUSCULAR HEMOGLOBIN 30.7 pg (27.0-31.0); MEAN CORPUSCULAR HGB CONC 31.6 g/dL (32.0-36.0); MEAN CORPUSCULAR VOLUME 97.2 fL (81.0-99.0); MEAN PLATELET VOLUME 10.8 fL (7.9-10.8); MONOCYTES # (AUTO) 1.1 10^3/uL (0.0-1.0); MONOCYTES % (AUTO) 12.3 %; NEUTROPHILS # (AUTO) 5.7 10^3/uL (1.5-6.6); NEUTROPHILS % (AUTO) 63.9 %; PLT - PLATELET COUNT 321 10^3/uL (130-450); RED BLOOD COUNT 3.19 10^6/uL (4.20-5.40); WHITE BLOOD COUNT 8.9 x10^3/uL (4.8-10.8)
[2022-11-01] MEDS ORDERED: CYCLOBENZAPRINE 10 MG TABLET PO SCH (09:00)
[2022-11-01] MEDS: CALCIUM CARBONATE CHEW 500 MG TABLET PO SCH (09:06)
[2022-11-01] MEDS: CITALOPRAM 10 MG TABLET PO SCH (09:07)
[2022-11-01] MEDS: POTASSIUM CHLORIDE 10 MEQ CAPSULE PO SCH (09:08)
[2022-11-01] MEDS: PANTOPRAZOLE 40 MG TABLET PO SCH (09:08)
[2022-11-01] MEDS: ASCORBIC ACID 500 MG TABLET PO SCH (09:09)
[2022-11-01] MEDS: ENOXAPARIN 40 MG/0.4 ML SYRINGE SUBQ SCH (09:10)
--- NOTE | 2022-11-01 11:22 | PROVIDER PROGRESS NOTE ---
Subjective - Prog Note Date Prog Note Date: 11/01/22 - Subjective Pt reports feeling: Improved Subjective: RN was performing patient's vital signs today, measuring her O2 saturation by finger monitoring which demonstrated that the patient's heart rate was alternating between 50 and up to 80. Saturation was fine. RN discussed this finding with orthopedic service. Orthopedic JONATHAN Aguilar has requested a consult on arrhythmia, found by pt's RN. I met the patient. The patient says she never feels palpitations. She denies any shortness of breath, chest pain or syncope. She denies any past cardiac history. Objective - Vital Signs/Intake & Output Vital Signs: Vital Signs x48h Temp Pulse Resp BP Pulse Ox 11/01/22 09:07 37.0 C 55 L 18 132/81 H 96 Intake & Output: Intake & Output 10/29/22 10/30/22 10/31/22 11/01/22 23:59 23:59 23:59 23:59 Intake Total 2091.25 1740 950 780 Output Total 1400 2150 751 400 Balance 691.25 -410 199 380 - Objective General Appearance: positive: No acute distress Eyes Bilateral: positive: Normal inspection, EOMI ENT: positive: ENT inspection nml, No signs of dehydration Neck: positive: Nml inspection, No JVD Respiratory: positive: No respiratory distress Cardiovascular: positive: Irregularly irregular Abdomen: positive: Non-tender, No distention Skin: positive: Warm, Dry, Other ((+) skin tenting seen on upper extremities) Extremities: positive: No pedal edema Neurologic/Psychiatric: positive: Oriented x3, Other (Poor memory (she just got narcotics for pain control).) - Lab Results Fish Bones: 11/01/22 06:18 11/01/22 11:38 Other Labs: Lab Results x24hrs 11/01/22 10/31/22 Range/Units 06:18 11:00 WBC 8.9 (4.8-10.8) x10^3/uL RBC 3.19 L (4.20-5.40) 10^6/uL Hgb 9.8 L (12.0-16.0) g/dL Hct 31.0 L (37.0-47.0) % MCV 97.2 (81.0-99.0) fL MCH 30.7 (27.0-31.0) pg MCHC 31.6 L (32.0-36.0) g/dL RDW 15.0 (12.0-15.0) % Plt Count 321 (130-450) 10^3/uL MPV 10.8 (7.9-10.8) fL Neut # (Auto) 5.7 (1.5-6.6) 10^3/uL Lymph # (Auto) 1.3 L (1.5-3.5) 10^3/uL [place] # (Auto) 1.1 H (0.0-1.0) 10^3/uL Eos # (Auto) 0.7 (0.0-0.7) 10^3/uL Baso # (Auto) 0.1 (0.0-0.1) 10^3/uL Absolute Nucleated RBC 0.00 x10^3/uL Nucleated RBC % 0.0 /100WBC SARS-CoV-2 (PCR) NOT DETECTED Assessment/Plan - Problem List (1) Arrhythmia Impression: There was no EKG done this admission on this patient. A twelve-lead EKG was ordered and done today (which I interpreted)>> This showed normal sinus rhythm, rate 68, left atrial enlargement, frequent PACs. EKG also showing LVH with strain pattern. Telemetry was ordered and shows frequent PVCs, occais OVCs and 2 runs of artifact vs 4-beat VTach. No Afib has been seen on telemetry. This patient has not had labs for several days. A set of labs (BMP, TSH, Mg and troponin) were ordered and done and these showed >> Low Mag of 1.5, a normal TSH, BMP and normal troponin. Plan: Her DCh does not need to be delayed. She may benefit from having an Echo done as an outpatient, Dx: LVH, PACs, PVC's. Magnesium was ordered to be replaced orally now. She was on oral magnesium at home, and has not been getting it since being admitted here. This is probably the reason for the low magnesium level. She needs to be back on her usual medications including daily magnesium after discharge EXCEPT, I recommend changing her daily furosemide to every other day (q48h). This med change recommendation was communicated to JONATHAN Aguilar before Dch. Thank you for allowing us to participate in the care of your patient.
[2022-11-01 12:01] LABS: CALCIUM 8.6 mg/dL (8.5-10.3); CREATININE 0.7 mg/dL (0.4-1.0); POTASSIUM 3.5 mmol/L (3.5-5.0)
[2022-11-01] MEDS ORDERED: LOSARTAN 50 MG TABLET PO SCH (12:30)
[2022-11-01] MEDS ORDERED: PROPRANOLOL 40 MG TABLET PO SCH (12:31)
[2022-11-01] MEDS ORDERED: MAGNESIUM OXIDE 400 MG TABLET PO SCH (13:00)
[2022-11-01 13:08] VITALS: BP 124/56
[2022-11-02] MEDS ORDERED: FUROSEMIDE 20 MG TABLET PO SCH (09:00)
== END 2022-11-01 13:40 | DRG 561 ==
LOC: EDUNIT# → ED 11:58 → SDS 17:07 → MS2 18:59 → OBSVTOIN 10-26 14:57
PROVIDERS: ADMIT Orthopaedic Surgery; ATTEND Physician Assistant Surgical
PROC: 0SWBXJZ Revision of Synthetic Substitute in Left Hip Joint, External Approach (ICD-10-PCS; principal; 2022-10-25 18:00)
DX: T84.84XA Pain due to internal orthopedic prosthetic devices, implants and grafts, initial encounter (principal); T84.021A Dislocation of internal left hip prosthesis, initial encounter; I10 Essential (primary) hypertension; K21.9 Gastro-esophageal reflux disease without esophagitis; G89.18 Other acute postprocedural pain; E78.00 Pure hypercholesterolemia, unspecified; G25.81 Restless legs syndrome; E83.42 Hypomagnesemia; I49.9 Cardiac arrhythmia, unspecified; M32.9 Systemic lupus erythematosus, unspecified; M19.90 Unspecified osteoarthritis, unspecified site; Z20.822 Contact with and (suspected) exposure to COVID-19
CPT/HCPCS: 27265; 27266; 36415; 72170; 73502; 80048; 80053; 83690; 83735; 84443; 84484; 85025; 87635; 96372; 96374; 96376; 97162; 97165; 97530; 99152; 99284; 99285; A9270; G0378; J1170; J1650; J7120; 93005; 94770

== ENCOUNTER 2022-11-01 13:34 | Outpatient (CLI) | payer MEDICARE, OTHER | END 2022-11-01 23:59 | LOC: EMS 13:34 | PROVIDERS: ATTEND Specialist | DX: M24.459 Recurrent dislocation, unspecified hip (principal); Z74.01 Bed confinement status | CPT/HCPCS: A0425; A0428 ==

== ENCOUNTER 2022-11-02 11:20 | Outpatient (CLI) | payer MEDICARE, OTHER | END 2022-11-02 23:59 | disposition critical access hospital (66) | LOC: EMS 11:20 | DX: R39.9 Unspecified symptoms and signs involving the genitourinary system (principal); M24.452 Recurrent dislocation, left hip | CPT/HCPCS: A0425; A0429 ==

== ENCOUNTER 2022-11-02 11:26 | Emergency (ER) | payer MEDICARE, OTHER ==
--- NOTE | 2022-11-02 12:03 | ED Physician Documentation ---
PD HPI FEMALE - Stated complaint Stated Complaint: UTI - Chief complaint Chief Complaint: Trauma Ext - History obtained from History obtained from: Patient - History of Present Illness Timing - onset: How many days ago (has had difficulty with urinating and bladder cramping/fullness for days, and today was unable to urinate with feeling of distended bladder. Previously with dribbling urine output. No dysuria per se.) Timing - duration: Days Timing - details: Gradual onset, Still present Associated symptoms: Urinary frequency (only small amounts). No: Fever, Dysuria Similar symptoms before: Has not had sx before Recently seen: Emergency Dept (has had many ED visits for recurrently dislocating hip. Is at [facility] now for care, epending waiting for revision surgery of hip to treat the dislocations.) Review of Systems Constitutional: denies: Fever, Chills : reports: Frequency, Unable to Void. 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: Other HEENT: Tonsil/Adenoidectomy - Present Medications Home Medications: Ambulatory Orders Medication Instructions Recorded Confirmed Carbidopa/Levodopa 1 tab PO 5XD PRN 06/17/20 10/26/22 [Carbidopa-Levodopa 25-100 Tab] Butalbital/Acetaminophen 1 tab PO Q4HR PRN 11/22/20 10/26/22 [Butalbital-Acetaminophn 50-325] Irbesartan [Avapro] 75 mg PO DAILY 12/02/20 10/26/22 Rosuvastatin Calcium [Crestor] 5 mg PO DAILY 12/02/20 10/26/22 Albuterol Sulfate [Proair 1 puffs IH Q4HR PRN 08/21/21 10/26/22 Respiclick] Ezetimibe [Zetia] 10 mg PO DAILY 08/21/21 10/26/22 Pantoprazole Sodium 40 mg PO BID 08/21/21 10/26/22 Ascorbic Acid 1 tab PO DAILY 10/26/22 10/26/22 Calcium Carbonate [Calcium] 1 tab PO DAILY 10/26/22 10/26/22 Cyclobenzaprine HCl 1 tab PO TID PRN 10/26/22 10/26/22 Magnesium Oxide 1 tab PO DAILY 10/26/22 10/26/22 Ondansetron HCl 1 tab PO Q6HR PRN 10/26/22 10/26/22 Propranolol [Inderal] 1 tab PO BID 10/26/22 10/26/22 Senna [Senokot] 1 tab PO BID PRN 10/26/22 10/26/22 Zinc Gluconate [Zinc] 1 tab PO DAILY 10/26/22 10/26/22 diphenhydrAMINE [Benadryl] 1 cap PO HS PRN 10/26/22 10/26/22 polyethylene glycoL 3350 [Miralax] 8.5 - 17 gm PO DAILY PRN 10/26/22 10/26/22 Apixaban [Eliquis] 2.5 mg PO BID #10 tablet 10/30/22 Citalopram [CeleXA] 10 mg PO DAILY #5 tab 10/30/22 Furosemide [Lasix] 20 mg PO UD #0 11/01/22 10/26/22 Morphine Ir [Ms Ir] 30 mg PO Q6H #30 tablet 11/01/22 Morphine Ir [Ms Ir] 30 mg PO Q6HR tab 11/01/22 - Allergies Allergies/Adverse Reactions: Allergies Allergy/AdvReac Type Severity Reaction Status Date / Time amitriptyline Allergy Unknown Verified 11/02/22 12:17 beclomethasone Allergy Unknown Verified 11/02/22 12:17 gabapentin Allergy Respiratory Verified 11/02/22 12:17 hydroxychloroquine Allergy Unknown Verified 11/02/22 12:17 meperidine [From Demerol] Allergy Unknown Verified 11/02/22 12:17 [id number] Reductase Allergy Unknown Verified 11/02/22 12:17 Inhibitor tramadol Allergy Unknown Verified 11/02/22 12:17 zolpidem [From Ambien] Allergy Unknown Verified 11/02/22 12:17 - Social History Does the pt smoke?: No Smoking Status: Never smoker Does the pt drink ETOH?: No Does the pt have substance abuse?: No - Immunizations Immunizations are current?: Yes - POLST Patient has POLST: No PD ED PE NORMAL - Vitals Vital signs reviewed: Yes - General General: Alert and oriented X 3, No acute distress, Well developed/nourished - Abdomen Abdomen: Other (tenderness and fullness in suprapubic area c/w full bladder. ) - Derm Derm: Normal color, Warm and dry - Neuro Neuro: Alert and oriented X 3, Normal speech - Psych Psych: No: Normal mood (distraught and upset due to hip and having to await surgery. ) Results - Vitals Vitals: Vital Signs - 24 hr 11/02/22 11/02/22 11/02/22 11:50 13:10 14:30 Temperature 37.0 C Heart Rate 117 H 88 84 Respiratory 20 19 19 Rate Blood Pressure 162/95 H 115/83 H O2 Saturation 96 98 97 Oxygen O2 Source Room air - Labs Labs: Laboratory Tests 11/02/22 11/02/22 12:44 13:30 Sodium 135 Potassium 3.6 Chloride 93 L Carbon Dioxide 29 Anion Gap 13.0 BUN 14 Creatinine 0.6 Estimated GFR (MDRD) 97 Glucose 166 H Calcium 8.9 Total Bilirubin 0.8 AST 16 ALT 18 Alkaline Phosphatase 68 Total Protein 6.2 L Albumin 2.7 L Globulin 3.5 Albumin/Globulin Ratio 0.8 L Lipase 24 Urine Color YELLOW Urine Clarity CLEAR Urine pH 6.5 Ur Specific Alex 1.015 Urine Protein TRACE Urine Glucose (UA) NEGATIVE Urine Ketones TRACE Urine Occult Blood NEGATIVE Urine Nitrite NEGATIVE Urine Bilirubin NEGATIVE Urine Urobilinogen 0.2 (NORMAL) Ur Leukocyte Esterase NEGATIVE Ur Microscopic Review NOT INDICATED Urine Culture Comments NOT INDICATED PD Medical Decision Making - ED course Complexity details: considered differential (seems c/w urinary retention. Can check bladder scanner, which did show over 500 ml. Jang placed with improvement of abd pain. UA did not show infection. ), d/w patient Departure - Departure Disposition: 01 Home, Self Care Clinical Impression: Acute urinary retention Condition: Stable Record reviewed to determine appropriate education?: Yes Follow-Up: Obdulia Laureano ARNP [Primary Care Provider] - Comments: You did have an accumulation of the urine in the bladder that was not able to come out/void. We placed a catheter in there to help drain it. This should improve the discomfort you have been having from the urinary retention. Your urine does not show any signs of infection. The urinary retention sometimes can relate to use of pain medicine or such. I would have you continue with the Jang catheter to provide adequate drainage. Continue with your current medications. Follow-up with your orthopedic surgeon as planned for surgical repair of the recurrent hip dislocation. Discharge Date/Time: 11/02/22 15:23
[2022-11-02] MEDS: KETOROLAC 30 MG/ML VIAL IM STA (12:44)
[2022-11-02] MEDS: HYDROmorphone 1 MG/ML CARPUJECT IM STA (12:44)
[2022-11-02 13:01] LABS: ALBUMIN 2.7 g/dL (3.2-5.5); ALBUMIN/GLOBULIN RATIO 0.8 (1.0-2.2); BILIRUBIN,TOTAL 0.8 mg/dL (0.2-1.0); CALCIUM 8.9 mg/dL (8.5-10.3); CREATININE 0.6 mg/dL (0.4-1.0); POTASSIUM 3.6 mmol/L (3.5-5.0); TOTAL PROTEIN 6.2 g/dL (6.7-8.2)
[2022-11-02 13:11] VITALS: BP 115/83
[2022-11-02 13:40] LABS: BILIRUBIN,URINE NEGATIVE (NEGATIVE); GLUCOSE, URINE (UA) NEGATIVE (NEGATIVE); KETONES,URINE (UA) TRACE mg/dL (NEGATIVE); LEUKOCYTE ESTERASE, URINE NEGATIVE (NEGATIVE); NITRITE,URINE NEGATIVE (NEGATIVE); OCCULT BLOOD,URINE NEGATIVE (NEGATIVE); PH,URINE 6.5 PH (5.0-7.5); PROTEIN,URINE TRACE mg/dL (NEGATIVE); UROBILINOGEN,URINE 0.2 (NORMAL) E.U./dL (NORMAL)
[2022-11-02 13:47] LABS: CLARITY,URINE CLEAR (CLEAR)
== END 2022-11-02 15:23 | disposition home or self-care (01) ==
LOC: EDUNIT# → ED 11:26
DX: R33.9 Retention of urine, unspecified (principal)
CPT/HCPCS: 36415; 51798; 80053; 81003; 83690; 96372; 99283; 99284; J1170; 81001; 87086

== ENCOUNTER 2022-11-02 15:42 | Outpatient (CLI) | payer MEDICARE, OTHER | END 2022-11-02 23:59 | LOC: EMS 15:42 | PROVIDERS: ATTEND Emergency Medicine | DX: R33.9 Retention of urine, unspecified (principal); M24.452 Recurrent dislocation, left hip; M25.552 Pain in left hip; I10 Essential (primary) hypertension | CPT/HCPCS: A0425; A0428 ==

== ENCOUNTER 2022-11-02 16:34 | Outpatient (CLI) | payer MEDICARE, OTHER | END 2022-11-02 23:59 | disposition home or self-care (01) | LOC: EMS 16:34 | PROVIDERS: ATTEND Emergency Medicine | DX: S73.005A Unspecified dislocation of left hip, initial encounter (principal); X58.XXXA Exposure to other specified factors, initial encounter; N39.0 Urinary tract infection, site not specified | CPT/HCPCS: A0425; A0428 ==

== ENCOUNTER 2022-11-07 08:25 | Outpatient (CLI) | payer MEDICARE, OTHER | END 2022-11-07 08:26 | disposition short-term general hospital (02) | LOC: EMS 08:25 | DX: S73.005A Unspecified dislocation of left hip, initial encounter (principal); X58.XXXA Exposure to other specified factors, initial encounter | CPT/HCPCS: A0425; A0427 ==

== ENCOUNTER 2023-09-24 19:26 | Outpatient (CLI) | payer MEDICARE, OTHER | END 2023-09-24 19:27 | disposition E | LOC: EMS 19:26 ==